=== PATIENT | male | born 1975 | race American Indian/Alaskan Native ===

== ENCOUNTER 2019-01-26 03:17 | Emergency (ER) | payer MEDICAID ==
[2019-01-26] MEDS ORDERED: Losartan 25 MG Tab PO STA (04:00)
[2019-01-26] MEDS ORDERED: Metoprolol Tartrate 25 MG Tab PO STA (04:01)
--- NOTE | 2019-01-26 04:07 | EDM.PDOC ---
<Glenn Huang - Last Filed: 01/26/19 08:37> ED HPI GENERAL MEDICAL PROBLEM - General Chief Complaint: Cardiovascular Problem Stated Complaint: [facility] Time Seen by Provider: 01/26/19 03:30 - Related Data Allergies Allergy/AdvReac Type Severity Reaction Status Date / Time No Known Allergies Allergy Verified 01/26/19 03:19 Home Meds: Home Meds Losartan [Cozaar] 100 mg PO DAILY 01/26/19 [History] Metoprolol Succinate [Toprol XL 100mg] 100 mg PO DAILY 01/26/19 [History] Simvastatin [Zocor] 40 mg PO DAILY 01/26/19 [History] Course - Vital Signs Last Recorded V/S: Last Vital Signs Temp 36.7 C 01/26/19 09:15 Pulse 88 01/26/19 09:15 Resp 20 01/26/19 09:15 BP 145/85 H 01/26/19 09:15 Pulse Ox 95 01/26/19 09:15 - Orders/Labs/Meds Labs: Laboratory Tests 01/26/19 01/26/19 01/26/19 Range/Units 04:14 04:14 07:34 WBC 8.67 (4.23-9.07) K/mm3 RBC 4.88 (4.63-6.08) M/mm3 Hgb 12.9 L (13.7-17.5) gm/L Hct 38.2 L (40.1-51.0) % MCV 78.3 L (79.0-92.2) fl MCH 26.4 (25.7-32.2) pg MCHC 33.8 (32.2-35.5) g/dl RDW Std Deviation 44.0 H (35.1-43.9) fL Plt Count 244 (163-337) K/mm3 MPV 8.8 L (9.4-12.3) fl Neutrophils % (Manual) 68 H (40-60) % Band Neutrophils % 3 (0-10) % Lymphocytes % (Manual) 21 (20-40) % Atypical Lymphs % 0 % Monocytes % (Manual) 5 (2-10) % Eosinophils % (Manual) 1 (0.8-7.0) % Basophils % (Manual) 2 H (0.2-1.2) Platelet Estimate Adequate Plt Morphology Comment Normal Microcytosis 1+ slight Shweta Cells 1+ slight RBC Morph Comment Not Reportable Sodium 140 (136-145) mEq/L Potassium 3.7 (3.5-5.1) mEq/L Chloride 106 (98-107) mEq/L Carbon Dioxide 25 (21-32) mEq/L Anion Gap 12.7 (5-15) BUN 17 (7-18) mg/dL Creatinine 1.0 (0.7-1.3) mg/dL Est Cr Clr Drug Dosing 93.28 mL/min Estimated GFR (MDRD) > 60 (>60) mL/min BUN/Creatinine Ratio 17.0 (14-18) Glucose 122 H (74-106) mg/dL Calcium 9.0 (8.5-10.1) mg/dL Magnesium (1.8-2.4) mg/dl Total Bilirubin 0.4 (0.2-1.0) mg/dL AST 20 (15-37) U/L ALT 29 (16-63) U/L Alkaline Phosphatase 152 H (46-116) U/L Troponin I 0.291 H* 0.490 H* (0.00-0.056) ng/mL NT-Pro-B Natriuret Pep (0-125) pg/mL Total Protein 7.2 (6.4-8.2) g/dl Albumin 3.3 L (3.4-5.0) g/dl Globulin 3.9 gm/dL Albumin/Globulin Ratio 0.9 L (1-2) 01/26/19 01/26/19 Range/Units 07:34 07:34 WBC (4.23-9.07) K/mm3 RBC (4.63-6.08) M/mm3 Hgb (13.7-17.5) gm/L Hct (40.1-51.0) % MCV (79.0-92.2) fl MCH (25.7-32.2) pg MCHC (32.2-35.5) g/dl RDW Std Deviation (35.1-43.9) fL Plt Count (163-337) K/mm3 MPV (9.4-12.3) fl Neutrophils % (Manual) (40-60) % Band Neutrophils % (0-10) % Lymphocytes % (Manual) (20-40) % Atypical Lymphs % % Monocytes % (Manual) (2-10) % Eosinophils % (Manual) (0.8-7.0) % Basophils % (Manual) (0.2-1.2) Platelet Estimate Plt Morphology Comment Microcytosis [place] Cells RBC Morph Comment Sodium (136-145) mEq/L Potassium (3.5-5.1) mEq/L Chloride (98-107) mEq/L Carbon Dioxide (21-32) mEq/L Anion Gap (5-15) BUN (7-18) mg/dL Creatinine (0.7-1.3) mg/dL Est Cr Clr Drug Dosing mL/min Estimated GFR (MDRD) (>60) mL/min BUN/Creatinine Ratio (14-18) Glucose (74-106) mg/dL Calcium (8.5-10.1) mg/dL Magnesium 1.8 (1.8-2.4) mg/dl Total Bilirubin (0.2-1.0) mg/dL AST (15-37) U/L ALT (16-63) U/L Alkaline Phosphatase (46-116) U/L Troponin I (0.00-0.056) ng/mL NT-Pro-B Natriuret Pep 2056 H (0-125) pg/mL Total Protein (6.4-8.2) g/dl Albumin (3.4-5.0) g/dl Globulin gm/dL Albumin/Globulin Ratio (1-2) Meds: Medications Discontinued Medications Generic Name Dose Route Start Last Admin Trade Name Freq PRN Reason Stop Dose Admin Aspirin 324 mg 01/26/19 08:47 01/26/19 08:51 Aspirin PO 01/26/19 08:48 324 mg ONETIME ONE Administration Heparin Sodium (Porcine) 5,000 units 01/26/19 08:28 01/26/19 08:47 Heparin Sodium IVPUSH 01/26/19 08:29 5,000 units ONETIME ONE Administration Nitroglycerin/Dextrose 25 mg in 250 mls @ 6 mls/hr 01/26/19 08:30 01/26/19 08 :25 Nitroglycerin 25 Mg/D5w 250 Ml IV 10 mcg/min TITRATE LEILANI 6 mls/hr Administration Protocol 10 MCG/MIN Heparin Sodium/Dextrose 25,000 units in 500 mls @ 20 mls/hr 01/26/19 08:30 08:48 Heparin 25,000 Units In D5w 500 Ml IV 1,000 units/hr ASDIRECTED LEILANI 20 mls/hr Administration 1,000 UNITS/HR Losartan Potassium 25 mg 01/26/19 04:00 01/26/19 04:24 Cozaar PO 01/26/19 04:01 25 mg ONETIME STA Administration Metoprolol Succinate 100 mg 01/26/19 08:38 Toprol Xl PO 01/26/19 08:39 ONETIME ONE Metoprolol Tartrate 25 mg 01/26/19 04:01 01/26/19 04:23 Lopressor PO 01/26/19 04:02 25 mg ONETIME STA Administration Simvastatin 80 mg 01/26/19 08:38 01/26/19 08:58 Zocor PO 01/26/19 08:39 80 mg ONETIME ONE Administration - Re-Assessments/Exams Free Text/Narrative Re-Assessment/Exam: 01/26/19 08:[address] Huertas at change of shift. His second troponin is elevated at 0.4 90 with the initial one being 0.295. reports that he does have some mild central chest discomfort. BP is 151/83. He'll be started on nitroglycerin drip at 10 mcg/m. his med list is not yet been obtained. His doctor will be open up and walk city and therefore will call for his current meds. Been out of medications for about 2 weeks. 01/26/19 08:39 I was able to speak through the one call nurse at [facility] to Dr. Guerrero hospitalist phone technician and he has accepted care of this patient. That he does not have any further chest pain he will be admitted to the telemetry [place]. Otherwise if he develops chest pain en route to [place] he will stop in the ED for potential emergent catheterization. Treatment here has been aspirin 324 mg chewed. Heparinized with 5000 unit bolus and then will be started on 1000 unit per hour drip. Simvastatin [address] Tinoco had given him metoprolol during the night in the ED. Blood pressure stable at 155/ 81. Heart rate is 88 in sinus. Sats are 94% on room air 01/26/19 08:47 Departure - Departure Time of Disposition: 09:10 Disposition: DC/Tfer to Acute Hospital 02 Condition: Fair Clinical Impression: Elevated troponin I measurement Myocardial infarction Qualifiers: Myocardial infarction type: non-ST elevation myocardial infarction Qualified Code(s): I21.4 - Non-ST elevation (NSTEMI) myocardial infarction - Discharge Information *PRESCRIPTION DRUG MONITORING PROGRAM REVIEWED*: Not Applicable *COPY OF PRESCRIPTION DRUG MONITORING REPORT IN PATIENT KINGS: Not Applicable Referrals: Amarjit Bonner MD [Ordering Only Provider] - Forms: ED Department Discharge <AleksandarTesfaye Freddie - Last Filed: 01/27/19 18:26> ED HPI GENERAL MEDICAL PROBLEM - General Source of Information: Reports: Patient, Family, RN Notes Reviewed History Limitations: Reports: No Limitations - History of Present Illness INITIAL COMMENTS - FREE TEXT/NARRATIVE: The patient states that he has a history of hypertension, and states that he takes his blood pressure medications as prescribed, but also takes an extra dose of his blood pressure medicines whenever he has a headache, believing that his headaches may be due to elevated blood pressure. The patient does not check his blood pressure at home. As a result, the patient states that he ran out of his blood pressure medications, as well as his simvastatin, about 2 weeks ago. He was unable to refill his prescriptions at that time because it was too early , although his prescriptions became available this past 01/22/2019, however, the patient has not yet picked them up. The patient does not know the name or dose of either of his blood pressure medications, but when given some options, said that losartan and metoprolol sound familiar. Around 02:00 this morning, the patient states that he started feeling jittery and shaky, he had a cough, was diaphoretic, and his says that he looked pale. The patient states that he felt his heart pounding, therefore EMS was called. He denies having had a headache or chest pain, dyspnea, or nausea. Here in the ED, the patient states that he feels back to normal. His initial BP was found be 171/102, with a HR 101, but, without treatment, decreased to 167/94. The patient states that he suffered a VT in September 2011. At that time, he had central chest discomfort that radiated to his left jaw and down his left upper extremity to the elbow. He had dyspnea, nausea, diaphoresis, and a sense of impending doom. His states that he was being flown to [place], but that about 15-20 minutes into his flight, he suffered a hemorrhagic stroke. As a result, no cardiac stents were placed. The patient received a cerebral drain and was placed into an induced coma. 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 The patient's PCP is Analy Hankins. He last saw her about one month ago. Treatments BODY AND FENDER MECHANIC: Reports: IV/IO, Other (see below) Other Treatments BODY AND FENDER MECHANIC: Labetalol 5mg IVP. Past Medical History Cardiovascular History: Reports: CAD, High Cholesterol, Hypertension, VT (Sep 2011) Respiratory History: Reports: Sleep Apnea (noncompliant with CPAP) Genitourinary History: Reports: Acute Renal Failure (2010, resolved) Musculoskeletal History: Reports: Arthritis Neurological History: Reports: CVA (Hemorrhagic, Sep 2011) Endocrine/Metabolic History: Reports: Obesity/BMI 30+ - Past Surgical History Head Surgeries/Procedures: Reports: Other (See Below) (Ventricular drain, 2010) Musculoskeletal Surgical History: Reports: Other (See Below) (Left hand pinning) Social & Family History - Tobacco Use Smoking Status *Q: Former Smoker Years of Tobacco use: 15 Packs/Tins Daily: 3 Month/Year Tobacco Last Used: Quit 2009 - Alcohol Use Alcohol Use History: No - Recreational Drug Use Recreational Drug Use: Yes Drug Use in Last 12 Months: No Recreational Drug Type: Reports: Marijuana/Hashish (last smoked when 23 years old) - Living Situation & Occupation Living situation: Reports: , with Spouse, with Family (7 kids, 3 grandkids) Occupation: Employed ([employer]) ED ROS GENERAL - Review of Systems Review Of Systems: ROS reveals no pertinent complaints other than HPI. ED EXAM, GENERAL - Physical Exam Exam: See Below Exam Limited By: No Limitations General Appearance: Alert, WD/WN, No Apparent Distress Eye Exam: Bilateral Eye: EOMI, Normal Inspection Ears: Normal External Exam, Hearing Grossly Normal Nose: Normal Inspection Throat/Mouth: Normal Inspection, Normal Lips, Normal Voice, No Airway Compromise Head: Atraumatic, Normocephalic Neck: Normal Inspection, Full Range of Motion Respiratory/Chest: No Respiratory Distress, Lungs Clear, Normal Breath Sounds, No Accessory Muscle Use Cardiovascular: Normal Peripheral Pulses, Regular Rate, Rhythm, No Gallop, No JVD, No Rub, Systolic Murmur (harsh, holosystolic, heard across the precordium, but best at the RUSB. Radiates to both carotids.) Peripheral Pulses: 4+: Radial (L), Radial (R) GI/Abdominal: Normal Bowel Sounds, Soft, Non-Tender, No Organomegaly, No Distention, No Abnormal Bruit, No Mass, Other (Obese) (Male) Exam: Deferred Rectal (Males) Exam: Deferred Back Exam: Normal Inspection, Full Range of Motion, NT Extremities: Normal Inspection, Normal Range of Motion, No Pedal Edema, Normal Capillary Refill Neurological: Alert, Oriented, Normal Cognition, No Motor/Sensory Deficits Psychiatric: Normal Affect Skin Exam: Warm, Dry, Intact, Normal Color, No Rash EKG INTERPRETATION EKG Date: 01/26/19 Time: 04:15 Rhythm: NSR Rate (Beats/Min): 90 [place]: Normal (Borderline LAD) P-Wave: Enlarged (Possible LAE) QRS: Wide (Incomplete LBBB. + LVH) ST-T: Normal (J-point elevation in anterior leads, but no ischemic changes. Late transition.) QT: Prolonged (QTc 478 ms) Comparison: NA - No Prior EKG Course - Orders/Labs/Meds Labs: Laboratory Tests 01/26/19 01/26/19 01/26/19 Range/Units 04:14 04:14 07:34 WBC 8.67 (4.23-9.07) K/mm3 RBC 4.88 (4.63-6.08) M/mm3 Hgb 12.9 L (13.7-17.5) gm/L Hct 38.2 L (40.1-51.0) % MCV 78.3 L (79.0-92.2) fl MCH 26.4 (25.7-32.2) pg MCHC 33.8 (32.2-35.5) g/dl RDW Std Deviation 44.0 H (35.1-43.9) fL Plt Count 244 (163-337) K/mm3 MPV 8.8 L (9.4-12.3) fl Neutrophils % (Manual) 68 H (40-60) % Band Neutrophils % 3 (0-10) % Lymphocytes % (Manual) 21 (20-40) % Atypical Lymphs % 0 % Monocytes % (Manual) 5 (2-10) % Eosinophils % (Manual) 1 (0.8-7.0) % Basophils % (Manual) 2 H (0.2-1.2) Platelet Estimate Adequate Plt Morphology Comment Normal Microcytosis 1+ slight Shweta Cells 1+ slight RBC Morph Comment Not Reportable Sodium 140 (136-145) mEq/L Potassium 3.7 (3.5-5.1) mEq/L Chloride 106 (98-107) mEq/L Carbon Dioxide 25 (21-32) mEq/L Anion Gap 12.7 (5-15) BUN 17 (7-18) mg/dL Creatinine 1.0 (0.7-1.3) mg/dL Est Cr Clr Drug Dosing 93.28 mL/min Estimated GFR (MDRD) > 60 (>60) mL/min BUN/Creatinine Ratio 17.0 (14-18) Glucose 122 H (74-106) mg/dL Calcium 9.0 (8.5-10.1) mg/dL Magnesium (1.8-2.4) mg/dl Total Bilirubin 0.4 (0.2-1.0) mg/dL AST 20 (15-37) U/L ALT 29 (16-63) U/L Alkaline Phosphatase 152 H (46-116) U/L Troponin I 0.291 H* 0.490 H* (0.00-0.056) ng/mL NT-Pro-B Natriuret Pep (0-125) pg/mL Total Protein 7.2 (6.4-8.2) g/dl Albumin 3.3 L (3.4-5.0) g/dl Globulin 3.9 gm/dL Albumin/Globulin Ratio 0.9 L (1-2) 01/26/19 01/26/19 Range/Units 07:34 07:34 WBC (4.23-9.07) K/mm3 RBC (4.63-6.08) M/mm3 Hgb (13.7-17.5) gm/L Hct (40.1-51.0) % MCV (79.0-92.2) fl MCH (25.7-32.2) pg MCHC (32.2-35.5) g/dl RDW Std Deviation (35.1-43.9) fL Plt Count (163-337) K/mm3 MPV (9.4-12.3) fl Neutrophils % (Manual) (40-60) % Band Neutrophils % (0-10) % Lymphocytes % (Manual) (20-40) % Atypical Lymphs % % Monocytes % (Manual) (2-10) % Eosinophils % (Manual) (0.8-7.0) % Basophils % (Manual) (0.2-1.2) Platelet Estimate Plt Morphology Comment Microcytosis Shweta Cells RBC Morph Comment Sodium (136-145) mEq/L Potassium (3.5-5.1) mEq/L Chloride (98-107) mEq/L Carbon Dioxide (21-32) mEq/L Anion Gap (5-15) BUN (7-18) mg/dL Creatinine (0.7-1.3) mg/dL Est Cr Clr Drug Dosing mL/min Estimated GFR (MDRD) (>60) mL/min BUN/Creatinine Ratio (14-18) Glucose (74-106) mg/dL Calcium (8.5-10.1) mg/dL Magnesium 1.8 (1.8-2.4) mg/dl Total Bilirubin (0.2-1.0) mg/dL AST (15-37) U/L ALT (16-63) U/L Alkaline Phosphatase (46-116) U/L Troponin I (0.00-0.056) ng/mL NT-Pro-B Natriuret Pep 2056 H (0-125) pg/mL Total Protein (6.4-8.2) g/dl Albumin (3.4-5.0) g/dl Globulin gm/dL Albumin/Globulin Ratio (1-2) Meds: Medications Discontinued Medications Generic Name Dose Route Start Last Admin Trade Name Freq PRN Reason Stop Dose Admin Aspirin 324 mg 01/26/19 08:47 01/26/19 08:51 Aspirin PO 01/26/19 08:48 324 mg ONETIME ONE Administration Heparin Sodium (Porcine) 5,000 units 01/26/19 08:28 01/26/19 08:47 Heparin Sodium IVPUSH 01/26/19 08:29 5,000 units ONETIME ONE Administration Nitroglycerin/Dextrose 25 mg in 250 mls @ 6 mls/hr 01/26/19 08:30 01/26/19 08 :25 Nitroglycerin 25 Mg/D5w 250 Ml IV 10 mcg/min TITRATE LEILANI 6 mls/hr Administration Protocol 10 MCG/MIN Heparin Sodium/Dextrose 25,000 units in 500 mls @ 20 mls/hr 01/26/19 08:30 08:48 Heparin 25,000 Units In D5w 500 Ml IV 1,000 units/hr ASDIRECTED LEILANI 20 mls/hr Administration 1,000 UNITS/HR Losartan Potassium 25 mg 01/26/19 04:00 01/26/19 04:24 Cozaar PO 01/26/19 04:01 25 mg ONETIME STA Administration Metoprolol Succinate 100 mg 01/26/19 08:38 Toprol Xl PO 01/26/19 08:39 ONETIME ONE Metoprolol Tartrate 25 mg 01/26/19 04:01 01/26/19 04:23 Lopressor PO 01/26/19 04:02 25 mg ONETIME STA Administration Simvastatin 80 mg 01/26/19 08:38 01/26/19 08:58 Zocor PO 01/26/19 08:39 80 mg ONETIME ONE Administration - Re-Assessments/Exams Free Text/Narrative Re-Assessment/Exam: 01/26/19 04:02 When the patient developed jitteriness, shakiness, cough, diaphoresis, and pale appearance this morning, the patient's was concerned, given the patient's history of a VT that ultimately resulted in a hemorrhagic stroke. The patient denies, however, that he experienced any of the symptoms that he had when he had a VT, including central chest pain radiating to his left jaw and left upper extremity, dyspnea, or nausea. Nevertheless, I've ordered an ECG, chest x-ray, and blood work. The patient's initial blood pressure was elevated at 171/102, with a HR of 101. Without treatment, it has decreased to 167/94, with a HR of 94. Current guidelines do not require emergent treatment of such a blood pressure, however, I feel that the patient and his might feel better if I restart him on his usual medications. Unfortunately, they are not certain of what medications he ordinarily takes - they believe it is losartan, although it may be lisinopril, and metoprolol, and they don't know the doses. I have therefore ordered the smallest dose possible for both losartan and metoprolol, 25 mg each. The plan will be that after the patient's evaluation in the ED this morning, they can go to their pharmacy and apple picking supervisor their prescriptions that are waiting for them. On examination, the patient has a murmur that is consistent with aortic stenosis. This needs to be evaluated by echocardiogram and followed. I will therefore refer the patient to a Programs Manager in [place]. 01/26/19 04:50 Two-view chest radiograph reviewed. There is cardiomegaly, and there might be a slight amount of pulmonary vascular congestion, but no pleural effusions. No focal infiltrate. No pneumothorax. Formal read per the Radiologist pending. 01/26/19 05:01 The patient's CBC and CMP are unremarkable. His renal function is normal. His troponin, however, has returned modestly elevated at 0.291. We have no prior troponins to compare. It is possible that the patient's elevated troponin is related to his LVH/ cardiomegaly, which are likely due to, at least in part, aortic stenosis, however, I would like to discuss his case with a Programs Manager. 01/26/19 05:20 Case discussed with Cris at [facility] One Call at 05:07. Portable chest x-ray image pushed to [facility] at 05:09. Case then discussed with Dr. Jin, Programs Manager at [facility], at 05: 14. He recommended that we repeat the troponin 3 hours after the first. If it is not rising, then the patient may follow-up with a cold meat cook as an outpatient - he recommended Dr. Amarjit Bonner, as Dr. Bonner comes into [place]. If the troponin is rising, he recommended that we call them back - Dr. Sutton will be on at that time. The initial troponin was obtained at 04:14; I have ordered a repeat troponin to be obtained at 07:15. 01/26/19 06:36 Following losartan 25 mg and metoprolol 25 mg, the patient's most recent BP is 142/95 with a HR of 93. 01/26/19 07:[address] Huang, and care of the patient turned over to him at this time for change of shift.
[2019-01-26] MEDS ORDERED: Heparin Sodium 5,000 Units/ML Vial IVPUSH ONE (08:28)
[2019-01-26] MEDS ORDERED: Heparin Sodium/D5W 25,000 UNITS/500 ML BAG IV SCH (08:30)
[2019-01-26] MEDS ORDERED: Nitroglycerin/D5W 25 MG/250 ML BOTTLE IV SCH (08:30)
[2019-01-26] MEDS ORDERED: Simvastatin 40 MG Tab PO ONE (08:38)
[2019-01-26] MEDS ORDERED: Metoprolol Succinate 50 MG Tab.ER PO ONE (08:38)
[2019-01-26] MEDS ORDERED: Aspirin 81 MG Tab.Chew PO ONE (08:47)
--- NOTE | 2019-01-26 10:54 | CR ---
Chest: Two views of the chest were obtained. Comparison: No prior chest x-ray. Heart is enlarged. Tortuous thoracic aorta is seen. Mild upper lobe pulmonary vascular redistribution is seen. Lungs otherwise are clear. Slight degenerative change is scattered within the spine. Impression: 1. Cardiomegaly with mild upper lobe pulmonary vascular redistribution. 2. Other incidental findings. Diagnostic code #3
== END 2019-01-26 09:19 ==
LOC: JD.ED 03:17
DX: I21.4 Non-ST elevation (NSTEMI) myocardial infarction (principal); R79.89 Other specified abnormal findings of blood chemistry; I25.10 Atherosclerotic heart disease of native coronary artery without angina pectoris; E78.00 Pure hypercholesterolemia, unspecified; I10 Essential (primary) hypertension; Z79.899 Other long term (current) drug therapy; Z87.891 Personal history of nicotine dependence; Z86.73 Personal history of transient ischemic attack (TIA), and cerebral infarction without residual deficits
CPT/HCPCS: 36415; 71046; 80053; 83735; 83880; 84484; 85007; 85027; 93005; 96365; 96368; 99285; A9270; J1644; J3490; 93010

== ENCOUNTER 2021-08-15 02:03 | Inpatient (IN) | payer MEDICAID ==
[2021-08-15] MEDS: Sodium Chloride 0.9% 10 ML Syringe FLUSH PRN ×2 (02:23→03:54)
[2021-08-15] MEDS ORDERED: REMDESIVIR 200 MG in Sodium Chloride 0.9% 250 ML IV ONE (02:27)
[2021-08-15] MEDS ORDERED: Dexamethasone 10 MG/ML SDV IVPUSH ONE (02:27)
[2021-08-15] MEDS ORDERED: Acetaminophen 325 MG Tab PO ONE (02:34)
--- NOTE | 2021-08-15 02:35 | EDM.PDOC ---
<Willie Acevedo Daniel - Last Filed: 08/15/21 07:10> ED HPI GENERAL MEDICAL PROBLEM - General Chief Complaint: Respiratory Problem Stated Complaint: [facility] Time Seen by Provider: 08/15/21 02:16 Source of Information: Reports: Patient, EMS, RN Notes Reviewed - History of Present Illness INITIAL COMMENTS - FREE TEXT/NARRATIVE: 45 yr old male brought here by [facility] short of breath. He has been ill with covid for about 9 days, tested positive at [facility] yesterday,Found to have covid pneumonia Found to have covid pneumonia, sats reported to be OK, treated with dexamethasone, allowed to go home. Became more short of breath this last evening, early this morning. Arrived on NRB 15 LPM, sats only around 81 % on arrival to ED. Hx Htn., moderate obesity. Hx CAD, prior CABG, not diabetic, does not smoke, unvaccinated. - Related Data Allergies Allergy/AdvReac Type Severity Reaction Status Date / Time No Known Allergies Allergy Verified 08/15/21 02:10 Home Meds: Home Meds Losartan [Cozaar] 100 mg PO DAILY 01/26/19 [History] Metoprolol Succinate [Toprol XL 100mg] 100 mg PO DAILY 01/26/19 [History] Simvastatin [Zocor] 40 mg PO DAILY 01/26/19 [History] Doxycycline [Doxycycline Hyclate] 100 mg PO Q12HR 08/15/21 [History] calcitrioL [Calcitriol] 0.25 mcg PO DAILY 08/15/21 [History] Past Medical History HEENT History: Reports: Impaired Vision Other HEENT History: wears glasses Cardiovascular History: Reports: CAD, High Cholesterol, Hypertension, [place] Respiratory History: Reports: Sleep Apnea Genitourinary History: Reports: Acute Renal Failure Musculoskeletal History: Reports: Arthritis Neurological History: Reports: CVA Endocrine/Metabolic History: Reports: Obesity/BMI 30+ Dermatologic History: Reports: Other (See Below) Other Dermatologic History: 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 - Infectious Disease History Infectious Disease History: Reports: Novel Coronavirus - Past Surgical History Cardiovascular Surgical History: Reports: Valve Replacement Musculoskeletal Surgical History: Reports: Other (See Below) Social & Family History - Tobacco Use Tobacco Use Status *Q: Former Tobacco User Used Tobacco, but Quit: Yes Month/Year Tobacco Last Used: 2004 - Recreational Drug Use Recreational Drug Use: No - Living Situation & Occupation Living situation: Reports: , with Spouse, with Family (7 kids, 3 grandkids) 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 Denies: Abdominal Pain, Vomiting Musculoskeletal: Reports: Other (generalized achiness) Neurological: Reports: Dizziness, Headache ED EXAM, GENERAL - Physical Exam Exam: See Below General Appearance: Alert, Moderate Distress Head: Atraumatic Neck: Supple Respiratory/Chest: Respiratory Distress (moderate tachypnea), Rhonchi (mild bilat). No: Wheezing Cardiovascular: Tachycardia Back Exam: No: CVA Tenderness (L), CVA Tenderness (R) Extremities: Normal Inspection. No: Pedal Edema, Leg Pain, Increased Warmth, Redness Neurological: Alert, Oriented, No Motor/Sensory Deficits Skin Exam: Warm, Dry, Normal Color, No Rash Course - Re-Assessments/Exams Free Text/Narrative Re-Assessment/Exam: 08/15/21 03:17 CXR shows bilat. covid pneumonia. sats 86 ro 88 % 15 L NRB at time of exam. Have ordered high flow 02. will check ABG's once we get him stablized on the high flow 02. He was not severely tacypnic or short of breath at time of my exam but obviously ill. Have ordered 8 mg IV dexamethasone, 200 mg remdesivir, PO tylenol. 08/15/21 03:19. D Dimer has come back elevated at 2.76. CTPA ordered. CRP13.7, WBC 11,750. 08/15/21 04:05 ABG's 40 LHFNC, 60% Fio2 pO2 56, 7.39, 34.9. 04:30. sats did come up to mid 90's with higherO2. Currently doing better with sats 91 to 92 %, 35 L, 50 % Fio2. 08/15/21 05:43 CT chest shows diffuse bilat pneumonia, no PE. We are on diversion for admissions at this time, Both [facility] are on diversion for covid. Will look further out. 08/15/21 05:57. [facility] also on diversion for covid at this time. Have called [facility], they will put him on their waiting list and attempt to place him when something opens up. His sats are continuing stable at 91 to 92 %. 08/15/21 07:10. Change of shift, care transferred to Dr Huang at this time. Departure - Departure Disposition: Admitted As Inpatient 64 Condition: Serious Clinical Impression: Pneumonia due to COVID-19 virus, Hypoxia - Discharge Information Sepsis Event Note (ED) - Evaluation Sepsis Screening Result: No Definite Risk <Glenn Huang - Last Filed: 08/15/21 12:35> Past Medical History Cardiovascular History: Reports: Heart Valve Replacement (Patient has had both aortic and mitral valve replaced. Bioprosthetic valves) Course - Vital Signs Last Recorded V/S: Last Vital Signs Temp 36.7 C 08/15/21 09:00 Pulse 75 08/15/21 09:00 Resp 23 H 08/15/21 09:00 BP 136/76 08/15/21 09:00 Pulse Ox 80 L 08/15/21 10:01 - Orders/Labs/Meds Orders: Active Orders 24 hr Category Date Time Status Chest Physiotherapy [RT Chest Physiotherapy] [RC] Care 08/15/21 10:01 Active ASDIRECTED Incentive Spirometry [RT Incentive Spirometry] [RC] Care 08/15/21 10:01 Active ASDIRECTED Peripheral IV Care [RC] . DIRECTED Care 08/15/21 02:19 Active Chest PE [Ang Chest] [CT] Stat Exams 08/15/21 03:13 Taken Sodium Chloride 0.9% [Normal Saline] 100 ml Med 08/15/21 03:30 Active IV ASDIRECTED Sodium Chloride 0.9% [Saline Flush] Med 08/15/21 02:18 Active 10 ml FLUSH ASDIRECTED PRN Peripheral IV Insertion Adult [OM.PC] Stat Oth 08/15/21 02:18 Ordered Medication Orders Sodium Chloride (Normal Saline) 100 mls @ 60 mls/min IV ASDIRECTED LEILANI Last Admin: 08/15/21 03:54 Dose: 60 mls/min Documented by: CAL Remdesivir 100 mg/ Sodium (Chloride) 100 mls @ 100 mls/hr IV Q24H LEILANI Stop: 08/19/21 09:59 Sodium Chloride (Sodium Chloride 0.9% 10 Ml Syringe) 10 ml FLUSH ASDIRECTED PRN PRN Reason: Keep Vein Open Last Admin: 08/15/21 03:54 Dose: 10 ml Documented by: Admin: 08/15/21 02:23 Dose: 10 ml Documented by: JD Labs: Laboratory Tests 08/15/21 08/15/21 08/15/21 Range/Units 02:15 02:15 02:15 WBC 11.75 H (4.23-9.07) K/mm3 RBC 5.53 (4.63-6.08) M/mm3 Hgb 14.6 D (13.7-17.5) gm/dl Hct 44.4 (40.1-51.0) % MCV 80.3 (79.0-92.2) fl MCH 26.4 (25.7-32.2) pg MCHC 32.9 (32.2-35.5) g/dl RDW Std Deviation 42.6 (35.1-43.9) fL Plt Count 237 (163-337) K/mm3 MPV 9.3 L (9.4-12.3) fl Neut % (Auto) 87.6 H (34.0-67.9) % Lymph % (Auto) 8.5 L (21.8-53.1) % [place] % (Auto) 3.1 L (5.3-12.2) % Eos % (Auto) 0 L (0.8-7.0) Baso % (Auto) 0.1 (0.1-1.2) % Neut # (Auto) 10.29 H (1.78-5.38) K/mm3 Lymph # (Auto) 1.00 L (1.32-3.57) K/mm3 [place] # (Auto) 0.37 (0.30-0.82) K/mm3 Eos # (Auto) 0.00 L (0.04-0.54) K/mm3 Baso # (Auto) 0.01 (0.01-0.08) K/mm3 Manual Slide Review D-Dimer, Quantitative 2.76 H (0.19-0.50) mg/L Puncture Site ABG pH (7.35-7.45) ABG pCO2 (35.0-45.0) mmHg ABG pO2 (80.0-100.0) mmHg ABG HCO3 (22.0-26.0) meq/L ABG O2 Saturation (96.0-97.0) % ABG Base Excess (-2-2.0) A-a Gradient mmHg O2 Delivery Device Oxygen Flow Rate FiO2 (21.00-100.00) % Blood Gas Comments Sodium 144 (136-145) mEq/L Potassium 4.3 (3.5-5.1) mEq/L Chloride 106 (98-107) mEq/L Carbon Dioxide 27 (21-32) mEq/L Anion Gap 15.3 H (5-15) BUN 20 H (7-18) mg/dL Creatinine 1.4 H (0.7-1.3) mg/dL Est Cr Clr Drug Dosing 65.23 mL/min Estimated GFR (MDRD) 54 (>60) mL/min BUN/Creatinine Ratio 14.3 (14-18) Glucose 117 H (70-99) mg/dL Calcium 8.2 L (8.5-10.1) mg/dL Total Bilirubin 0.4 (0.2-1.0) mg/dL AST 47 H (15-37) U/L ALT 28 (16-63) U/L Alkaline Phosphatase 90 (46-116) U/L C-Reactive Protein 13.7 H* (<1.0) mg/dL Total Protein 6.6 (6.4-8.2) g/dl Albumin 2.7 L (3.4-5.0) g/dl Globulin 3.9 gm/dL Albumin/Globulin Ratio 0.7 L (1-2) 08/15/21 Range/Units 03:55 WBC (4.23-9.07) K/mm3 RBC (4.63-6.08) M/mm3 Hgb (13.7-17.5) gm/dl Hct (40.1-51.0) % MCV (79.0-92.2) fl MCH (25.7-32.2) pg MCHC (32.2-35.5) g/dl RDW Std Deviation (35.1-43.9) fL Plt Count (163-337) K/mm3 MPV (9.4-12.3) fl Neut % (Auto) (34.0-67.9) % Lymph % (Auto) (21.8-53.1) % [place] % (Auto) (5.3-12.2) % Eos % (Auto) (0.8-7.0) Baso % (Auto) (0.1-1.2) % Neut # (Auto) (1.78-5.38) K/mm3 Lymph # (Auto) (1.32-3.57) K/mm3 [place] # (Auto) (0.30-0.82) K/mm3 Eos # (Auto) (0.04-0.54) K/mm3 Baso # (Auto) (0.01-0.08) K/mm3 Manual Slide Review D-Dimer, Quantitative (0.19-0.50) mg/L Puncture Site Lt brachial ABG pH 7.39 (7.35-7.45) ABG pCO2 34.9 L (35.0-45.0) mmHg ABG pO2 56.0 L (80.0-100.0) mmHg ABG HCO3 20.8 L (22.0-26.0) meq/L ABG O2 Saturation 88.5 L (96.0-97.0) % ABG Base Excess -3.0 L (-2-2.0) A-a Gradient 328 mmHg O2 Delivery Device High flow Oxygen Flow Rate 40.0 FiO2 60.00 (21.00-100.00) % Blood Gas Comments O2 change x 5min Sodium (136-145) mEq/L Potassium (3.5-5.1) mEq/L Chloride (98-107) mEq/L Carbon Dioxide (21-32) mEq/L Anion Gap (5-15) BUN (7-18) mg/dL Creatinine (0.7-1.3) mg/dL Est Cr Clr Drug Dosing mL/min Estimated GFR (MDRD) (>60) mL/min BUN/Creatinine Ratio (14-18) Glucose (70-99) mg/dL Calcium (8.5-10.1) mg/dL Total Bilirubin (0.2-1.0) mg/dL AST (15-37) U/L ALT (16-63) U/L Alkaline Phosphatase (46-116) U/L C-Reactive Protein (<1.0) mg/dL Total Protein (6.4-8.2) g/dl Albumin (3.4-5.0) g/dl Globulin gm/dL Albumin/Globulin Ratio (1-2) Meds: Medications Generic Name Dose Route Start Last Admin Trade Name Freq PRN Reason Stop Dose Admin Sodium Chloride 100 mls @ 60 mls/min 08/15/21 03:30 08/15/21 03:54 Normal Saline IV 60 mls/min ASDIRECTED LEILANI Administration Remdesivir 100 mg/ Sodium 100 mls @ 100 mls/hr 08/16/21 09:00 Chloride IV 08/19/21 09:59 Q24H LEILANI Sodium Chloride 10 ml 08/15/21 02:18 08/15/21 03:54 Sodium Chloride 0.9% 10 Ml Syringe FLUSH 10 ml ASDIRECTED PRN Administration Keep Vein Open Discontinued Medications Generic Name Dose Route Start Last Admin Trade Name Freq PRN Reason Stop Dose Admin Acetaminophen 975 mg 08/15/21 02:34 08/15/21 02:42 Acetaminophen 325 Mg Tab PO 08/15/21 02:35 975 mg NOW ONE Administration Dexamethasone 8 mg 08/15/21 02:27 08/15/21 02:42 Dexamethasone 10 Mg/Ml Sdv IVPUSH 08/15/21 02:28 8 mg ONETIME ONE Administration Remdesivir 200 mg/ Sodium 250 mls @ 250 mls/hr 08/15/21 02:27 08/15/21 02:45 Chloride IV 08/15/21 03:26 250 mls/hr ONETIME ONE Administration Iopamidol 100 ml 08/15/21 03:17 08/15/21 03:54 Iopamidol 755 Mg/Ml 100 Ml Bottle IVPUSH 08/15/21 03:18 100 ml ONETIME ONE Administration Sodium Chloride 10 ml 08/15/21 03:17 Sodium Chloride 0.9% 10 Ml Sdv FLUSH 08/15/21 03:18 ONETIME ONE - Re-Assessments/Exams Free Text/Narrative Re-Assessment/Exam: 08/15/21 09:14 Case is been discussed with on-call hospitalist Dr. Herrera and hopefully a bed will become available later this morning or early afternoon for Mr. Junior. This depends on ability to discharge patients from the hospital by the hospitalist. 08/15/21 11:22 Patient continued to slowly desaturate below 88% and respiratory therapist has therefore increased his high flow O2 FiO2 of 70% at 50 L/min . 08/15/21 12:13 Apparently a bed is now become available for this patient and he will be admitted to the hospital shortly. Departure - Departure Time of Disposition: 12:35 - Discharge Information *PRESCRIPTION DRUG MONITORING PROGRAM REVIEWED*: Not Applicable *COPY OF PRESCRIPTION DRUG MONITORING REPORT IN PATIENT KINGS: Not Applicable Sepsis Event Note (ED) - Focused Exam Vital Signs: Vital Signs Temp Pulse Resp BP Pulse Ox Pulse Ox 08/15/21 10:01 80 L 08/15/21 09:00 36.7 C 75 23 H 136/76 90 L 08/15/21 04:20 98 08/15/21 02:11 38.2 C H 109 H 28 H 138/96 H 81 L - My Orders Last 24 Hours: My Active Orders 08/15/21 10:01 Chest Physiotherapy [RT Chest Physiotherapy] [RC] ASDIRECTED Incentive Spirometry [RT Incentive Spirometry] [RC] ASDIRECTED - Assessment/Plan Last 24 Hours: My Active Orders 08/15/21 10:01 Chest Physiotherapy [RT Chest Physiotherapy] [RC] ASDIRECTED Incentive Spirometry [RT Incentive Spirometry] [RC] ASDIRECTED
[2021-08-15] MEDS ORDERED: Iopamidol 755 Mg/ML 100 ML Bottle IVPUSH ONE (03:17)
[2021-08-15] MEDS ORDERED: Sodium Chloride 0.9% 10 ML SDV FLUSH ONE (03:17)
[2021-08-15] MEDS ORDERED: Sodium Chloride 0.9% 100 ML IV SCH (03:30)
--- NOTE | 2021-08-15 08:05 | CR ---
Chest: Frontal view of the chest was obtained. Comparison: Prior chest x-ray of 01/26/19. Heart is enlarged. Diffuse increased density is seen within both sides of the chest. Prior sternotomy is seen. Bony structures show nothing acute. Parenchymal densities are an interval change from prior chest x-ray. Impression: 1. Diffuse increased density within both sides of the chest with cardiomegaly. Findings most likely represent COVID pneumonia. Diagnostic code #3
[2021-08-15] MEDS ORDERED: FLU Vacc QS2021-22 36MOS UP/PF 60 MCG/0.5 ML Syringe IM ONE (13:00)
[2021-08-15] MEDS ORDERED: Ondansetron 4 MG/2 ML SDV IV PRN (14:03)
--- NOTE | 2021-08-15 14:08 | PCM.HP.2 ---
H&P History of Present Illness - General Date of Service: 08/15/21 Admit Problem/Dx: Admission Diagnosis/Problem Admission Diagnosis/Problem Hypoxia - History of Present Illness Initial Comments - Free Text/Narative: 45-year-old unvaccinated against COVID-19 male presents after having symptoms for approximately 9 days to the emergency department. Patient had difficulty breathing coming back from the bathroom and called EMS who reported his O2 level to be significantly low. Patient was placed on a nonrebreather on 15 L and his sats were only 81% on arrival to the emergency department. Patient's risk facto rs include morbid obesity and hypertension. 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 He denies diabetes. Headache Pain Score (Numeric/FACES): 3 - Related Data Allergies/Adverse Reactions: Allergies Allergy/AdvReac Type Severity Reaction Status Date / Time No Known Allergies Allergy Verified 08/15/21 13:35 Home Medications: Home Meds Losartan [Cozaar] 100 mg PO DAILY 01/26/19 [History] Simvastatin [Zocor] 40 mg PO DAILY 01/26/19 [History] Doxycycline [Doxycycline Hyclate] 100 mg PO Q12HR 08/15/21 [History] Metoprolol Succinate 50 mg PO DAILY 08/15/21 [History] calcitrioL [Calcitriol] 0.25 mcg PO DAILY 08/15/21 [History] Past Medical History HEENT History: Reports: Impaired Vision Other HEENT History: wears glasses Cardiovascular History: Reports: CAD, Heart Valve Replacement, High Cholesterol, Hypertension, [place] Respiratory History: Reports: Sleep Apnea Genitourinary History: Reports: Acute Renal Failure Musculoskeletal History: Reports: Arthritis, Gout Neurological History: Reports: CVA Other Neuro History: 2009 Endocrine/Metabolic History: Reports: Obesity/BMI 30+ Dermatologic History: Reports: Other (See Below) Other Dermatologic History: 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 Exam - Exam Exam: See Below - Vital Signs Vital Signs: Last Vital Signs Temp 98.1 F 08/15/21 09:00 Pulse 75 08/15/21 09:00 Resp 23 H 08/15/21 09:00 BP 136/76 08/15/21 09:00 Pulse Ox 86 L 08/15/21 12:39 Weight: 307 lb 8 oz - Exam Quality Assessment: Supplemental Oxygen General: Alert, Oriented, 4 HEENT: Conjunctiva Clear, EACs Clear, Hearing Intact, Mucosa Moist & [place] Neck: Supple, Trachea Midline, 2 Lungs: Crackles (Bibasilar). No: Normal Respiratory Effort (Increased respiratory rate) Cardiovascular: Regular Rate, Regular Rhythm GI/Abdominal Exam: Normal Bowel Sounds, Soft, Non-Tender, No Distention Extremities: Normal Inspection, Normal Range of Motion, Non-Tender, No Pedal Edema, Normal Capillary Refill Skin: Warm, Dry, Intact Neuro Extensive - Mental Status: Alert, Oriented x3, Normal Mood/Affect, Normal Cognition Neuro Extensive - Motor, Sensory, Reflexes: CN II-XII Intact Psychiatric: Alert, Normal Affect, Normal Mood - Patient Data Lab Results Last 24 hrs: Laboratory Results - last 24 hr 08/15/21 08/15/21 08/15/21 Range/Units 02:15 02:15 02:15 WBC 11.75 H (4.23-9.07) K/mm3 RBC 5.53 (4.63-6.08) M/mm3 Hgb 14.6 D (13.7-17.5) gm/dl Hct 44.4 (40.1-51.0) % MCV 80.3 (79.0-92.2) fl MCH 26.4 (25.7-32.2) pg MCHC 32.9 (32.2-35.5) g/dl RDW Std Deviation 42.6 (35.1-43.9) fL Plt Count 237 (163-337) K/mm3 MPV 9.3 L (9.4-12.3) fl Neut % (Auto) 87.6 H (34.0-67.9) % Lymph % (Auto) 8.5 L (21.8-53.1) % Arthur % (Auto) 3.1 L (5.3-12.2) % Eos % (Auto) 0 L (0.8-7.0) Baso % (Auto) 0.1 (0.1-1.2) % Neut # (Auto) 10.29 H (1.78-5.38) K/mm3 Lymph # (Auto) 1.00 L (1.32-3.57) K/mm3 Arthur # (Auto) 0.37 (0.30-0.82) K/mm3 Eos # (Auto) 0.00 L (0.04-0.54) K/mm3 Baso # (Auto) 0.01 (0.01-0.08) K/mm3 Manual Slide Review D-Dimer, Quantitative 2.76 H (0.19-0.50) mg/L Puncture Site ABG pH (7.35-7.45) ABG pCO2 (35.0-45.0) mmHg ABG pO2 (80.0-100.0) mmHg ABG HCO3 (22.0-26.0) meq/L ABG O2 Saturation (96.0-97.0) % ABG Base Excess (-2-2.0) A-a Gradient mmHg O2 Delivery Device Oxygen Flow Rate FiO2 (21.00-100.00) % Blood Gas Comments Sodium 144 (136-145) mEq/L Potassium 4.3 (3.5-5.1) mEq/L Chloride 106 (98-107) mEq/L Carbon Dioxide 27 (21-32) mEq/L Anion Gap 15.3 H (5-15) BUN 20 H (7-18) mg/dL Creatinine 1.4 H (0.7-1.3) mg/dL Est Cr Clr Drug Dosing 65.23 mL/min Estimated GFR (MDRD) 54 (>60) mL/min BUN/Creatinine Ratio 14.3 (14-18) Glucose 117 H (70-99) mg/dL Calcium 8.2 L (8.5-10.1) mg/dL Magnesium (1.8-2.4) mg/dL Total Bilirubin 0.4 (0.2-1.0) mg/dL AST 47 H (15-37) U/L ALT 28 (16-63) U/L Alkaline Phosphatase 90 (46-116) U/L C-Reactive Protein 13.7 H* (<1.0) mg/dL NT-Pro-B Natriuret Pep (0-125) pg/mL Total Protein 6.6 (6.4-8.2) g/dl Albumin 2.7 L (3.4-5.0) g/dl Globulin 3.9 gm/dL Albumin/Globulin Ratio 0.7 L (1-2) 08/15/21 08/15/21 08/15/21 Range/Units 03:55 12:48 12:48 WBC (4.23-9.07) K/mm3 RBC (4.63-6.08) M/mm3 Hgb (13.7-17.5) gm/dl Hct (40.1-51.0) % MCV (79.0-92.2) fl MCH (25.7-32.2) pg MCHC (32.2-35.5) g/dl RDW Std Deviation (35.1-43.9) fL Plt Count (163-337) K/mm3 MPV (9.4-12.3) fl Neut % (Auto) (34.0-67.9) % Lymph % (Auto) (21.8-53.1) % Arthur % (Auto) (5.3-12.2) % Eos % (Auto) (0.8-7.0) Baso % (Auto) (0.1-1.2) % Neut # (Auto) (1.78-5.38) K/mm3 Lymph # (Auto) (1.32-3.57) K/mm3 Arthur # (Auto) (0.30-0.82) K/mm3 Eos # (Auto) (0.04-0.54) K/mm3 Baso # (Auto) (0.01-0.08) K/mm3 Manual Slide Review D-Dimer, Quantitative (0.19-0.50) mg/L Puncture Site Lt brachial ABG pH 7.39 (7.35-7.45) ABG pCO2 34.9 L (35.0-45.0) mmHg ABG pO2 56.0 L (80.0-100.0) mmHg ABG HCO3 20.8 L (22.0-26.0) meq/L ABG O2 Saturation 88.5 L (96.0-97.0) % ABG Base Excess -3.0 L (-2-2.0) A-a Gradient 328 mmHg O2 Delivery Device High flow Oxygen Flow Rate 40.0 FiO2 60.00 (21.00-100.00) % Blood Gas Comments O2 change x 5min Sodium (136-145) mEq/L Potassium (3.5-5.1) mEq/L Chloride (98-107) mEq/L Carbon Dioxide (21-32) mEq/L Anion Gap (5-15) BUN (7-18) mg/dL Creatinine (0.7-1.3) mg/dL Est Cr Clr Drug Dosing mL/min Estimated GFR (MDRD) (>60) mL/min BUN/Creatinine Ratio (14-18) Glucose (70-99) mg/dL Calcium (8.5-10.1) mg/dL Magnesium 1.8 (1.8-2.4) mg/dL Total Bilirubin (0.2-1.0) mg/dL AST (15-37) U/L ALT (16-63) U/L Alkaline Phosphatase (46-116) U/L C-Reactive Protein (<1.0) mg/dL NT-Pro-B Natriuret Pep 420 H (0-125) pg/mL Total Protein (6.4-8.2) g/dl Albumin (3.4-5.0) g/dl Globulin gm/dL Albumin/Globulin Ratio (1-2) Result Diagrams: 08/15/21 02:15 08/15/21 02:15 Sepsis Event Note - Evaluation Sepsis Screening Result: No Definite Risk - Focused Exam Vital Signs: Vital Signs Temp Pulse Resp BP Pulse Ox Pulse Ox 08/15/21 12:39 86 L 08/15/21 10:01 80 L 08/15/21 09:00 98.1 F 75 23 H 136/76 90 L 08/15/21 04:20 98 08/15/21 02:11 100.7 F H 109 H 28 H 138/96 H 81 L - Problem List (1) HTN (hypertension) SNOMED Code(s): 46828990 ICD Code: I10 - ESSENTIAL (PRIMARY) HYPERTENSION Status: Acute Current Visit: Yes (2) Hypoxia SNOMED Code(s): 671969664 ICD Code: R09.02 - HYPOXEMIA Status: Acute Current Visit: Yes (3) Pneumonia due to COVID-19 virus SNOMED Code(s): 484157514726129710 ICD Code: U07.1 - COVID-19; J12.82 - PNEUMONIA DUE TO CORONAVIRUS DISEASE 2019 Status: Acute Current Visit: Yes Problem List Initiated/Reviewed/Updated: Yes Orders Last 24hrs: Active Orders 24 hr Category Date Time Status Patient Status [ADT] Routine ADT 08/15/21 12:58 Active Chest Physiotherapy [RT Chest Physiotherapy] [RC] Care 08/15/21 10:01 Active ASDIRECTED Incentive Spirometry [RT Incentive Spirometry] [RC] Care 08/15/21 10:01 Active ASDIRECTED Nurse Communication: Isolation [RC] ASDIRECTED Care 08/15/21 14:03 Ordered Oxygen Therapy [RC] PRN Care 08/15/21 14:03 Ordered Positioning, Patient [RC] ASDIRECTED Care 08/15/21 14:05 Ordered Up ad Yumi [RC] ASDIRECTED Care 08/15/21 14:03 Ordered VTE/DVT Education [RC] PER UNIT ROUTINE Care 08/15/21 14:03 Ordered Vaccine to be Administered/Admin Charge [RC] ASDIRECTED Care 08/15/21 12:51 Active Vital Signs [RC] Q4H Care 08/15/21 14:03 Ordered Regular Diet [DIET] Diet 08/15/21 Dinner Ordered Chest PE [Ang Chest] [CT] Stat Exams 08/15/21 03:13 Taken C-REACTIVE PROTEIN [CHEM] AM Lab 08/16/21 05:11 Ordered C-REACTIVE PROTEIN [CHEM] AM Lab 08/17/21 05:11 Ordered C-REACTIVE PROTEIN [CHEM] AM Lab 08/18/21 05:11 Ordered C-REACTIVE PROTEIN [CHEM] AM Lab 08/19/21 05:11 Ordered C-REACTIVE PROTEIN [CHEM] AM Lab 08/20/21 05:11 Ordered CBC WITH AUTO DIFF [HEME] AM Lab 08/16/21 05:11 Ordered CBC WITH AUTO DIFF [HEME] AM Lab 08/17/21 05:11 Ordered CBC WITH AUTO DIFF [HEME] AM Lab 08/18/21 05:11 Ordered CBC WITH AUTO DIFF [HEME] AM Lab 08/19/21 05:11 Ordered CBC WITH AUTO DIFF [HEME] AM Lab 08/20/21 05:11 Ordered CMP [COMPREHENSIVE METABOLIC PN,CMP] [CHEM] AM Lab 08/16/21 05:11 Ordered CMP [COMPREHENSIVE METABOLIC PN,CMP] [CHEM] AM Lab 08/17/21 05:11 Ordered CMP [COMPREHENSIVE METABOLIC PN,CMP] [CHEM] AM Lab 08/18/21 05:11 Ordered CMP [COMPREHENSIVE METABOLIC PN,CMP] [CHEM] AM Lab 08/19/21 05:11 Ordered CMP [COMPREHENSIVE METABOLIC PN,CMP] [CHEM] AM Lab 08/20/21 05:11 Ordered DD [D-DIMER QUANTITATIVE] [COAG] AM Lab 08/17/21 05:11 Ordered MAGNESIUM [CHEM] AM Lab 08/16/21 05:11 Ordered MAGNESIUM [CHEM] AM Lab 08/17/21 05:11 Ordered MAGNESIUM [CHEM] AM Lab 08/18/21 05:11 Ordered MAGNESIUM [CHEM] AM Lab 08/19/21 05:11 Ordered MAGNESIUM [CHEM] AM Lab 08/20/21 05:11 Ordered PHOSPHORUS [CHEM] AM Lab 08/16/21 05:11 Ordered PROCALCITONIN [REF] Routine Lab 08/15/21 14:08 Ordered Acetaminophen [TylenoL] Med 08/15/21 14:06 Ordered 650 mg PO Q4H PRN Baricitinib [Olumiant] Med 08/15/21 14:15 Ordered 4 mg PO DAILY Enoxaparin [Lovenox] Med 08/16/21 09:00 Ordered 40 mg SUBCUT DAILY Ondansetron [Zofran] Med 08/15/21 14:03 Ordered 4 mg IV Q6H PRN Remdesivir 100 mg Med 08/16/21 09:00 Active Sodium Chloride 0.9% [Normal Saline] 100 ml IV Q24H Sodium Chloride 0.9% [Normal Saline] 100 ml Med 08/15/21 03:30 Active IV ASDIRECTED Sodium Chloride 0.9% [Saline Flush] Med 08/15/21 02:18 Active 10 ml FLUSH ASDIRECTED PRN dexAMETHasone Med 08/16/21 09:00 Ordered 6 mg PO DAILY Isolation [COMM] Stat Oth 08/15/21 14:03 Ordered Peripheral IV Insertion Adult [OM.PC] Stat Oth 08/15/21 02:18 Ordered Resuscitation Status Routine Resus Stat 08/15/21 14:03 Ordered Medication Orders Acetaminophen (Acetaminophen 325 Mg Tab) 650 mg PO Q4H PRN PRN Reason: Pain Baricitinib (Baricitinib 2 Mg Tab) 4 mg PO DAILY LEILANI Dexamethasone (Dexamethasone 4 Mg Tab) 6 mg PO DAILY [facility] Stop: 08/25/21 09:01 Enoxaparin Sodium (Enoxaparin 40 Mg/0.4 Ml Syringe) 40 mg SUBCUT DAILY LEILANI Sodium Chloride (Normal Saline) 100 mls @ 60 mls/min IV ASDIRECTED LEILANI Last Admin: 08/15/21 03:54 Dose: 60 mls/min Documented by: CAL Remdesivir 100 mg/ Sodium (Chloride) 100 mls @ 100 mls/hr IV Q24H LEILANI Stop: 08/19/21 09:59 Ondansetron HCl (Ondansetron 4 Mg/2 Ml Sdv) 4 mg IV Q6H PRN PRN Reason: Nausea/Vomiting Sodium Chloride (Sodium Chloride 0.9% 10 Ml Syringe) 10 ml FLUSH ASDIRECTED PRN PRN Reason: Keep Vein Open Last Admin: 08/15/21 03:54 Dose: 10 ml Documented by: Admin: 08/15/21 02:23 Dose: 10 ml Documented by: JD Assessment/Plan Comment:: 45-year-old obese male with hypertension presents to the emergency department with hypoxemia secondary to COVID-19 pneumonia. Patient was diagnosed 2 days ago, but has been symptomatic for approximately 9 days. Oxygen saturations on arrival with EMS on 15 L nonrebreather was 81%. COVID-19 pneumonia Hypoxemia Patient started on remdesivir and dexamethasone overnight in the emergency department. There were no beds available, therefore patient had to be housed in the emergency department. He is currently on 50 L of high flow nasal cannula at 70% FiO2. His oxygen saturations are in the low 90s. CTA of the chest was performed which showed significant acute bilateral interstitial pneumonitis but no pulmonary embolism. Significant labs showed a D-dimer of 2.76, WBC of 11,750, CRP of 13.7. ABGs on 40 L high flow nasal cannula at 60% FiO2 showed a pH of 7.39, PO2 56, PCO2 34.9. Acute versus chronic renal insufficiency Creatinine is 1.4 with an estimated GFR of 54. No old records to determine baseline. We will continue to monitor. Hypertension Blood pressure was well controlled in the emergency department at 136/76. We will continue his home meds except RAVI inhibitor. Bioprosthetic aortic and mitral valve replacement No murmur no complications noted. No anticoagulation. Plan * Admit to medical floor * FiO2 to keep SPO2 between 88 and 94%. Currently on high flow nasal cannula at 50 L/min and 70% FiO2. * Standard Covid precautions, protocol, and treatment * Remdesivir, dexamethasone, and baricitinib * Follow CBC, CMP, mag, CRP, and periodic D-dimer. * Continue metoprolol for blood pressure control, but hold losartan. * Renally dose medications. VTE prophylaxis with Lovenox CODE STATUS full code I spoke with patient to provide information about baricitinib. I offered the "fax sheet for patients and parents/caregivers, for baricitinib" to read and review. I stated that therapy has been approved by an emergency use authorization process and has not fully been FDA reviewed or approved. I shared potential risks from the therapy including increased risk for serious infections, anaphylaxis, and reaction to medication. I discussed there are other potential treatment options that are currently not FDA approved to treat COVID-19. Offered opportunity to ask questions and all questions were answered. Patient voiced understanding and agreed to proceed with treatment. - Mortality Measure Prognosis:: Good
[2021-08-15] MEDS: Albuterol/Ipratropium 3.0-0.5 MG/3 ML Neb Soln NEB PRN ×2 (14:42→20:36)
[2021-08-16] MEDS: Acetaminophen 325 MG Tab PO PRN (00:56)
--- NOTE | 2021-08-16 06:30 | CT ---
CT chest Technique: Multiple axial sections through the chest were obtained. Intravenous contrast was utilized. Study has been performed as a pulmonary angiogram protocol. Comparison: Prior chest x-ray performed earlier on the same day. Findings: Pulmonary arteries are not optimally opacified. No filling defects are seen within the main or proximal segmental branches. More distal pulmonary emboli could be missed. Thoracic aorta shows minimal atherosclerotic calcification with no aneurysm. Previous replacement of the aortic and mitral valves are noted. No mediastinal adenopathy is seen. No axillary adenopathy is noted. No pericardial thickening is seen. Heart is enlarged. Visualized upper abdominal structures show nothing acute. Lung window settings were reviewed. Patchy areas of increased density scattered throughout both sides of the chest are seen. No pleural effusions are seen. Bone window settings were reviewed. Mild scattered degenerative change is seen within the spine. Prior sternotomy is noted. Impression: 1. Findings compatible with COVID pneumonia seen throughout both sides of the chest. 2. Cardiomegaly. Prior sternotomy for prosthetic aortic and mitral valves. 3. Suboptimal opacification of the pulmonary arteries. No findings of pulmonary embolism within the main or proximal subsegmental branches. Diagnostic code #3 I agree with preliminary report from [facility], finalized on 08/15/21, 6:26 AM CDT, code 1
[2021-08-16] MEDS: Albuterol/Ipratropium 3.0-0.5 MG/3 ML Neb Soln NEB PRN ×2 (08:18→14:08)
[2021-08-16 08:29] LABS: VITAMIN D,25-HYDROXY 11.8 ng/ml (30.0-100.0)
[2021-08-16] MEDS ORDERED: Enoxaparin 40 MG/0.4 ML Syringe SUBCUT SCH (09:00)
[2021-08-16] MEDS ORDERED: Dexamethasone 4 MG Tab PO SCH (09:00)
[2021-08-16] MEDS ORDERED: Losartan 100 MG Tab PO SCH (09:00)
[2021-08-16] MEDS: Simvastatin 40 MG Tab PO SCH (09:45)
[2021-08-16] MEDS: Metoprolol Succinate 50 MG Tab.ER PO SCH (09:45)
[2021-08-16] MEDS: REMDESIVIR 100 MG in Sodium Chloride 0.9% 100 ML IV SCH (09:46)
[2021-08-16] MEDS: Cholecalciferol (Vitamin D3) 5,000 UNIT Cap PO SCH (11:06)
[2021-08-16] MEDS: cefTRIAXone 2 GM in Sodium Chloride 0.9% 100 ML IV SCH (11:07)
[2021-08-16] MEDS: Azithromycin 500 MG in Sodium Chloride 0.9% 250 ML IV SCH (11:07)
[2021-08-16] MEDS: guaiFENesin 600 MG Tab.ER PO SCH ×2 (15:36→21:37)
--- NOTE | 2021-08-16 17:27 | PCM.PN ---
- General Info Date of Service: 08/16/21 Admission Dx/Problem (Free Text): Admission Diagnosis/Problem Admission Diagnosis/Problem Hypoxia Subjective Update: Patient continued to deteriorate this morning. He maxed out on high flow nasal cannula and was transferred to the ICU on BiPAP. He has been prone positioning and on BiPAP his oxygen saturations have stabilized in the low to mid 90s. Functional Status: Reports: Pain Controlled - Review of Systems General: Reports: Fatigue HEENT: Reports: No Symptoms Pulmonary: Reports: Shortness of Breath, Cough Cardiovascular: Reports: No Symptoms Gastrointestinal: Reports: No Symptoms Musculoskeletal: Reports: No Symptoms - Patient Data Vitals - Most Recent: Last Vital Signs Temp 98.1 F 08/16/21 15:38 Pulse 84 08/16/21 10:13 Resp 18 08/16/21 16:00 BP 158/106 H 08/16/21 15:38 Pulse Ox 96 08/16/21 16:00 Weight - Most Recent: 307 lb 6.4 oz I&O - Last 24 Hours: Intake & Output 08/16/21 08/16/21 08/16/21 06:59 14:59 22:59 Intake Total 400 Output Total 600 Balance -200 Lab Results Last 24 Hours: Laboratory Results - last 24 hr 08/15/21 08/16/21 08/16/21 Range/Units 12:58 07:31 07:31 WBC 9.37 H (4.23-9.07) K/mm3 RBC 4.92 (4.63-6.08) M/mm3 Hgb 13.1 L D (13.7-17.5) gm/dl Hct 39.9 L (40.1-51.0) % MCV 81.1 (79.0-92.2) fl MCH 26.6 (25.7-32.2) pg MCHC 32.8 (32.2-35.5) g/dl RDW Std Deviation 42.0 (35.1-43.9) fL Plt Count 276 (163-337) K/mm3 MPV 9.0 L (9.4-12.3) fl Neut % (Auto) 83.4 H (34.0-67.9) % Lymph % (Auto) 10.5 L (21.8-53.1) % [place] % (Auto) 4.8 L (5.3-12.2) % Eos % (Auto) 0 L (0.8-7.0) Baso % (Auto) 0.3 (0.1-1.2) % Neut # (Auto) 7.82 H (1.78-5.38) K/mm3 Lymph # (Auto) 0.98 L (1.32-3.57) K/mm3 [place] # (Auto) 0.45 (0.30-0.82) K/mm3 Eos # (Auto) 0.00 L (0.04-0.54) K/mm3 Baso # (Auto) 0.03 (0.01-0.08) K/mm3 Manual Slide Review Normal smear Sodium 139 (136-145) mEq/L Potassium 3.8 (3.5-5.1) mEq/L Chloride 105 (98-107) mEq/L Carbon Dioxide 26 (21-32) mEq/L Anion Gap 11.8 (5-15) BUN 20 H (7-18) mg/dL Creatinine 1.0 (0.7-1.3) mg/dL Est Cr Clr Drug Dosing 91.32 mL/min Estimated GFR (MDRD) > 60 (>60) mL/min BUN/Creatinine Ratio 20.0 H (14-18) Glucose 127 H (70-99) mg/dL Calcium 8.2 L (8.5-10.1) mg/dL Phosphorus 4.1 (2.6-4.7) mg/dL Magnesium 1.9 (1.8-2.4) mg/dL Total Bilirubin 0.4 (0.2-1.0) mg/dL AST 42 H (15-37) U/L ALT 35 (16-63) U/L Alkaline Phosphatase 70 (46-116) U/L C-Reactive Protein 15.5 H* (<1.0) mg/dL Total Protein 6.5 (6.4-8.2) g/dl Albumin 2.2 L (3.4-5.0) g/dl Globulin 4.3 gm/dL Albumin/Globulin Ratio 0.5 L (1-2) Vitamin D 25-Hydroxy 11.8 L (30.0-100.0) ng/ml Procalcitonin 0.77 H ng/mL Med Orders - Current: Current Medications Acetaminophen (Acetaminophen 325 Mg Tab) 650 mg PO Q4H PRN PRN Reason: Pain Last Admin: 08/16/21 00:56 Dose: 650 mg Documented by: Albuterol/Ipratropium (Albuterol/Ipratropium 3.0-0.5 Mg/3 Ml Neb Soln) 3 ml NEB Q4HRRT PRN PRN Reason: sob/wheezing Last Admin: 08/16/21 14:08 Dose: 3 ml Documented by: Baricitinib (Baricitinib 2 Mg Tab) 2 mg PO DAILY [facility] Last Admin: 08/16/21 09:45 Dose: 2 mg Documented by: Cholecalciferol (Cholecalciferol (Vitamin D3) 5,000 Unit Cap) 10,000 unit PO DAILY [facility] Last Admin: 08/16/21 11:06 Dose: 10,000 unit Documented by: Dexamethasone (Dexamethasone 4 Mg Tab) 6 mg PO DAILY [facility] Stop: 08/25/21 09:01 Last Admin: 08/16/21 09:45 Dose: 6 mg Documented by: Enoxaparin Sodium (Enoxaparin 40 Mg/0.4 Ml Syringe) 40 mg SUBCUT DAILY [facility] Last Admin: 08/16/21 09:45 Dose: 40 mg Documented by: Guaifenesin (Guaifenesin 600 Mg Tab.Er) 600 mg PO TID [facility] Last Admin: 08/16/21 15:36 Dose: 600 mg Documented by: Remdesivir 100 mg/ Sodium (Chloride) 100 mls @ 100 mls/hr IV Q24H [facility] Stop: 08/19/21 09:59 Last Admin: 08/16/21 09:46 Dose: 100 mls/hr Documented by: Ceftriaxone Sodium 2 gm/ (Sodium Chloride) 100 mls @ 200 mls/hr IV Q24H [facility] Stop: 08/20/21 10:59 Last Admin: 08/16/21 11:07 Dose: 200 mls/hr Documented by: Azithromycin 500 mg/ Sodium (Chloride) 250 mls @ 250 mls/hr IV Q24H [facility] Stop: 08/18/21 11:59 Last Admin: 08/16/21 11:07 Dose: 250 mls/hr Documented by: Metoprolol Succinate (Metoprolol Succinate 50 Mg Tab.Er) 50 mg PO DAILY [facility] Last Admin: 08/16/21 09:45 Dose: 50 mg Documented by: Ondansetron HCl (Ondansetron 4 Mg/2 Ml Sdv) 4 mg IV Q6H PRN PRN Reason: Nausea/Vomiting Simvastatin (Simvastatin 40 Mg Tab) 40 mg PO DAILY [facility] Last Admin: 08/16/21 09:45 Dose: 40 mg Documented by: Sodium Chloride (Sodium Chloride 0.9% 10 Ml Syringe) 10 ml FLUSH ASDIRECTED PRN PRN Reason: Keep Vein Open Last Admin: 08/15/21 03:54 Dose: 10 ml Documented by: Discontinued Medications Acetaminophen (Acetaminophen 325 Mg Tab) 975 mg PO NOW ONE Stop: 08/15/21 02:35 Last Admin: 08/15/21 02:42 Dose: 975 mg Documented by: Baricitinib (Baricitinib 2 Mg Tab) 4 mg PO DAILY [facility] Last Admin: 08/15/21 15:13 Dose: Not Given Documented by: Dexamethasone (Dexamethasone 10 Mg/Ml Sdv) 8 mg IVPUSH ONETIME ONE Stop: 08/15/21 02:28 Last Admin: 08/15/21 02:42 Dose: 8 mg Documented by: Remdesivir 200 mg/ Sodium (Chloride) 250 mls @ 250 mls/hr IV ONETIME ONE Stop: 08/15/21 03:26 Last Admin: 08/15/21 02:45 Dose: 250 mls/hr Documented by: Sodium Chloride (Normal Saline) 100 mls @ 60 mls/min IV ASDIRECTED [facility] Last Admin: 08/15/21 03:54 Dose: 60 mls/min Documented by: Influenza Virus Vaccine (Pharmacy To Dose - Influenza Vaccine) 1 each IM ONETIME ONE Stop: 08/15/21 12:52 Influenza Virus Vaccine (Flu Vacc [id number] 36mos Up/Pf 60 Mcg/0.5 Ml Syringe) 60 mcg IM .ONCE ONE Stop: 08/15/21 13:01 Iopamidol (Iopamidol 755 Mg/Ml 100 Ml Bottle) 100 ml IVPUSH ONETIME ONE Stop: 08/15/21 03:18 Last Admin: 08/15/21 03:54 Dose: 100 ml Documented by: Losartan Potassium (Losartan 100 Mg Tab) 100 mg PO DAILY [facility] Sodium Chloride (Sodium Chloride 0.9% 10 Ml Sdv) 10 ml FLUSH ONETIME ONE Stop: 08/15/21 03:18 Last Admin: 08/15/21 15:23 Dose: Not Given Documented by: - Exam Quality Assessment: Supplemental Oxygen General: Alert, Oriented HEENT: Pupils Equal, Mucous Membr. Moist/[place]: Supple Lungs: Crackles (Throughout both lung taylor). No: Normal Respiratory Effort (Increased respiratory rate and effort) Cardiovascular: Regular Rate, Regular Rhythm GI/Abdominal Exam: Normal Bowel Sounds, Soft, Non-Tender, No Organomegaly, No Distention, No Abnormal Bruit, No Mass Skin: Warm, Dry, Intact Neurological: No New Focal Deficit Psy/Mental Status: Alert, Normal Affect, Normal Mood - Patient Data Lab Results Last 24 hrs: Laboratory Results - last 24 hr 08/15/21 08/16/21 08/16/21 Range/Units 12:58 07:31 07:31 WBC 9.37 H (4.23-9.07) K/mm3 RBC 4.92 (4.63-6.08) M/mm3 Hgb 13.1 L D (13.7-17.5) gm/dl Hct 39.9 L (40.1-51.0) % MCV 81.1 (79.0-92.2) fl MCH 26.6 (25.7-32.2) pg MCHC 32.8 (32.2-35.5) g/dl RDW Std Deviation 42.0 (35.1-43.9) fL Plt Count 276 (163-337) K/mm3 MPV 9.0 L (9.4-12.3) fl Neut % (Auto) 83.4 H (34.0-67.9) % Lymph % (Auto) 10.5 L (21.8-53.1) % [place] % (Auto) 4.8 L (5.3-12.2) % Eos % (Auto) 0 L (0.8-7.0) Baso % (Auto) 0.3 (0.1-1.2) % Neut # (Auto) 7.82 H (1.78-5.38) K/mm3 Lymph # (Auto) 0.98 L (1.32-3.57) K/mm3 [place] # (Auto) 0.45 (0.30-0.82) K/mm3 Eos # (Auto) 0.00 L (0.04-0.54) K/mm3 Baso # (Auto) 0.03 (0.01-0.08) K/mm3 Manual Slide Review Normal smear Sodium 139 (136-145) mEq/L Potassium 3.8 (3.5-5.1) mEq/L Chloride 105 (98-107) mEq/L Carbon Dioxide 26 (21-32) mEq/L Anion Gap 11.8 (5-15) BUN 20 H (7-18) mg/dL Creatinine 1.0 (0.7-1.3) mg/dL Est Cr Clr Drug Dosing 91.32 mL/min Estimated GFR (MDRD) > 60 (>60) mL/min BUN/Creatinine Ratio 20.0 H (14-18) Glucose 127 H (70-99) mg/dL Calcium 8.2 L (8.5-10.1) mg/dL Phosphorus 4.1 (2.6-4.7) mg/dL Magnesium 1.9 (1.8-2.4) mg/dL Total Bilirubin 0.4 (0.2-1.0) mg/dL AST 42 H (15-37) U/L ALT 35 (16-63) U/L Alkaline Phosphatase 70 (46-116) U/L C-Reactive Protein 15.5 H* (<1.0) mg/dL Total Protein 6.5 (6.4-8.2) g/dl Albumin 2.2 L (3.4-5.0) g/dl Globulin 4.3 gm/dL Albumin/Globulin Ratio 0.5 L (1-2) Vitamin D 25-Hydroxy 11.8 L (30.0-100.0) ng/ml Procalcitonin 0.77 H ng/mL Result Diagrams: 08/16/21 07:31 08/16/21 07:31 Sepsis Event Note - Evaluation Sepsis Screening Result: No Definite Risk - Focused Exam Vital Signs: Vital Signs Temp Pulse Resp BP BP Pulse Ox Pulse Ox 08/16/21 16:00 18 96 08/16/21 15:38 98.1 F 31 H 158/106 H 158/106 H 98 08/16/21 15:37 30 H 96 08/16/21 15:00 10 L 95 08/16/21 14:24 90 L 08/16/21 14:08 85 L 08/16/21 14:00 17 91 L 08/16/21 13:00 89 L 08/16/21 12:47 92 L 08/16/21 12:12 30 H 149/93 H 89 L 08/16/21 12:11 25 H 87 L 08/16/21 12:00 98.1 F 31 H 84 L 08/16/21 11:48 29 H 143/92 H 89 L 08/16/21 11:47 20 92 L 08/16/21 11:00 29 H 91 L 08/16/21 10:55 95 08/16/21 10:35 25 H 142/92 H 89 L 08/16/21 10:34 23 H 89 L 08/16/21 10:26 26 H 146/102 H 89 L 08/16/21 10:25 28 H 90 L 08/16/21 10:13 84 28 H 91 L 08/16/21 10:05 90 L 08/16/21 10:00 98 F 28 H 95 08/16/21 09:45 74 153/97 H 08/16/21 09:40 95 08/16/21 08:25 08/16/21 08:18 Pulse Ox 08/16/21 16:00 08/16/21 15:38 08/16/21 15:37 08/16/21 15:00 08/16/21 14:24 08/16/21 14:08 08/16/21 14:00 08/16/21 13:00 08/16/21 12:47 08/16/21 12:12 08/16/21 12:11 08/16/21 12:00 08/16/21 11:48 08/16/21 11:47 08/16/21 11:00 08/16/21 10:55 08/16/21 10:35 08/16/21 10:34 08/16/21 10:26 08/16/21 10:25 08/16/21 10:13 08/16/21 10:05 08/16/21 10:00 08/16/21 09:45 08/16/21 09:40 08/16/21 08:25 82 L 08/16/21 08:18 81 L - Problem List & Annotations (1) HTN (hypertension) SNOMED Code(s): 89499141 Code(s): I10 - ESSENTIAL (PRIMARY) HYPERTENSION Status: Acute Current Visit: Yes (2) Hypoxia SNOMED Code(s): 713969602 Code(s): R09.02 - HYPOXEMIA Status: Acute Current Visit: Yes (3) Pneumonia due to COVID-19 virus SNOMED Code(s): 491810254934879313 Code(s): U07.1 - COVID-19; J12.82 - PNEUMONIA DUE TO CORONAVIRUS DISEASE 2019 Status: Acute Current Visit: Yes - Problem List Review Problem List Initiated/Reviewed/Updated: Yes - My Orders Last 24 Hours: My Active Orders 08/16/21 09:00 Enoxaparin [Lovenox] 40 mg SUBCUT DAILY Metoprolol Succinate [Toprol XL] 50 mg PO DAILY Remdesivir 100 mg Sodium Chloride 0.9% [Normal Saline] 100 ml IV Q24H Simvastatin [Zocor] 40 mg PO DAILY dexAMETHasone 6 mg PO DAILY 08/16/21 09:35 Patient Status [ADT] Routine 08/16/21 09:40 BIPAP [RT BiPAP/CPAP] [RC] ASDIRECTED 08/16/21 10:08 Blood Culture x2 Reflex Set [OM.PC] Stat 08/16/21 10:15 Cholecalciferol (Vitamin D3) [Vitamin D3] 10,000 unit PO DAILY 08/16/21 10:30 cefTRIAXone [Rocephin] 2 gm Sodium Chloride 0.9% [Normal Saline AdvBag] 100 ml IV Q24H 08/16/21 10:44 BLOOD CULTURE [MREF] Stat 08/16/21 10:50 BLOOD CULTURE [MREF] Stat 08/16/21 11:00 Azithromycin [Zithromax] 500 mg Sodium Chloride 0.9% [Normal Saline AdvBag] 250 ml IV Q24H 08/16/21 16:00 guaiFENesin [Mucinex] 600 mg PO TID 08/17/21 05:11 C-REACTIVE PROTEIN [CHEM] AM CBC WITH AUTO DIFF [HEME] AM CMP [COMPREHENSIVE METABOLIC PN,CMP] [CHEM] AM DD [D-DIMER QUANTITATIVE] [COAG] AM MAGNESIUM [CHEM] AM 08/18/21 05:11 C-REACTIVE PROTEIN [CHEM] AM CBC WITH AUTO DIFF [HEME] AM CMP [COMPREHENSIVE METABOLIC PN,CMP] [CHEM] AM MAGNESIUM [CHEM] AM 08/19/21 05:11 C-REACTIVE PROTEIN [CHEM] AM CBC WITH AUTO DIFF [HEME] AM CMP [COMPREHENSIVE METABOLIC PN,CMP] [CHEM] AM MAGNESIUM [CHEM] AM 08/20/21 05:11 C-REACTIVE PROTEIN [CHEM] AM CBC WITH AUTO DIFF [HEME] AM CMP [COMPREHENSIVE METABOLIC PN,CMP] [CHEM] AM MAGNESIUM [CHEM] AM - Plan Plan:: 45-year-old obese male with hypertension presents to the emergency department with hypoxemia secondary to COVID-19 pneumonia. Patient was diagnosed 2 days ago, but has been symptomatic for approximately 9 days. Oxygen saturations on arrival with EMS on 15 L nonrebreather was 81%. COVID-19 pneumonia Hypoxemia Patient started on remdesivir and dexamethasone overnight in the emergency department. There were no beds available, therefore patient had to be housed in the emergency department. He is currently on 50 L of high flow nasal cannula at 70% FiO2. His oxygen saturations are in the low 90s. CTA of the chest was performed which showed significant acute bilateral interstitial pneumonitis but no pulmonary embolism. Significant labs showed a D-dimer of 2.76, WBC of 11,750, CRP of 13.7. ABGs on 40 L high flow nasal cannula at 60% FiO2 showed a pH of 7.39, PO2 56, PCO2 34.9. Acute versus chronic renal insufficiency Creatinine is 1.4 with an estimated GFR of 54. No old records to determine baseline. We will continue to monitor. Hypertension Blood pressure was well controlled in the emergency department at 136/76. We will continue his home meds except RAVI inhibitor. Bioprosthetic aortic and mitral valve replacement No murmur no complications noted. No anticoagulation. 08/16/2021 Patient progressively worsened overnight. He is now in the ICU on BiPAP. He was able to eat being switched over to high flow for a very short time. He continues on remdesivir, dexamethasone, and baricitinib. C-reactive protein increased from 13.715.2. Procalcitonin did return at 0.77. He will be started on ceftriaxone and azithromycin. Vitamin D was significantly low at 11.8 and will be started on vitamin D3 10,000 units daily. WBC is slightly elevated at 9.37. Hemoglobin is low at 13.1. Platelets 276. Plan * Admit to medical floor * FiO2 to keep SPO2 between 88 and 94%. * Standard Covid precautions, protocol, and treatment * Remdesivir day 2 of 5 * Increase dexamethasone to 6 mg twice daily * Baricitinib renally dosed day 2 of 14 * Follow CBC, CMP, mag, CRP, and periodic D-dimer. * Continue metoprolol for blood pressure control, but hold losartan. * Renally dose medications. VTE prophylaxis with Lovenox CODE STATUS full code I spoke with patient to provide information about baricitinib. I offered the "fax sheet for patients and parents/caregivers, for baricitinib" to read and review. I stated that therapy has been approved by an emergency use authorization process and has not fully been FDA reviewed or approved. I shared potential risks from the therapy including increased risk for serious inf ections, anaphylaxis, and reaction to medication. I discussed there are other potential treatment options that are currently not FDA approved to treat COVID- 19. Offered opportunity to ask questions and all questions were answered. Patient voiced understanding and agreed to proceed with treatment.
[2021-08-16] MEDS: Dexamethasone 4 MG/ML SDV IVPUSH SCH (21:37)
[2021-08-17] MEDS: Albuterol/Ipratropium 3.0-0.5 MG/3 ML Neb Soln NEB PRN ×3 (07:51→20:38)
--- NOTE | 2021-08-17 08:33 | PCM.PN ---
- General Info Date of Service: 08/17/21 Admission Dx/Problem (Free Text): Admission Diagnosis/Problem Admission Diagnosis/Problem Hypoxia Subjective Update: No acute events overnight. No new nursing concerns. Patient has been pronating. Oxygenating well, despite needing more aggressive positive pressure and overall O2 support. No specific new complaints. - Review of Systems HEENT: Reports: No Symptoms Pulmonary: Reports: No Symptoms Cardiovascular: Reports: No Symptoms Gastrointestinal: Reports: No Symptoms - Patient Data Vitals - Most Recent: Last Vital Signs Temp 97.8 F 08/17/21 04:00 Pulse 70 08/17/21 04:00 Resp 24 H 08/17/21 04:00 BP 151/92 H 08/17/21 04:00 Pulse Ox 94 L 08/17/21 07:51 Weight - Most Recent: 302 lb 8 oz I&O - Last 24 Hours: Intake & Output 08/16/21 08/17/21 08/17/21 22:59 06:59 14:59 Intake Total 750 1000 Output Total 1100 450 Balance -350 550 Lab Results Last 24 Hours: Laboratory Results - last 24 hr 08/15/21 08/16/21 08/17/21 Range/Units 12:58 07:31 05:30 WBC 7.35 (4.23-9.07) K/mm3 RBC 4.80 (4.63-6.08) M/mm3 Hgb 12.9 L (13.7-17.5) gm/dl Hct 39.1 L (40.1-51.0) % MCV 81.5 (79.0-92.2) fl MCH 26.9 (25.7-32.2) pg MCHC 33.0 (32.2-35.5) g/dl RDW Std Deviation 41.4 (35.1-43.9) fL Plt Count 313 (163-337) K/mm3 MPV 9.0 L (9.4-12.3) fl Neut % (Auto) 85.6 H (34.0-67.9) % Lymph % (Auto) 8.7 L (21.8-53.1) % [place] % (Auto) 4.4 L (5.3-12.2) % Eos % (Auto) 0 L (0.8-7.0) Baso % (Auto) 0.1 (0.1-1.2) % Neut # (Auto) 6.29 H (1.78-5.38) K/mm3 Lymph # (Auto) 0.64 L (1.32-3.57) K/mm3 [place] # (Auto) 0.32 (0.30-0.82) K/mm3 Eos # (Auto) 0.00 L (0.04-0.54) K/mm3 Baso # (Auto) 0.01 (0.01-0.08) K/mm3 Manual Slide Review Normal smear D-Dimer, Quantitative (0.19-0.50) mg/L Sodium 139 (136-145) mEq/L Potassium 3.8 (3.5-5.1) mEq/L Chloride 105 (98-107) mEq/L Carbon Dioxide 26 (21-32) mEq/L Anion Gap 11.8 (5-15) BUN 20 H (7-18) mg/dL Creatinine 1.0 (0.7-1.3) mg/dL Est Cr Clr Drug Dosing 91.32 mL/min Estimated GFR (MDRD) > 60 (>60) mL/min BUN/Creatinine Ratio 20.0 H (14-18) Glucose 127 H (70-99) mg/dL Calcium 8.2 L (8.5-10.1) mg/dL Phosphorus 4.1 (2.6-4.7) mg/dL Magnesium 1.9 (1.8-2.4) mg/dL Total Bilirubin 0.4 (0.2-1.0) mg/dL AST 42 H (15-37) U/L ALT 35 (16-63) U/L Alkaline Phosphatase 70 (46-116) U/L C-Reactive Protein 15.5 H* (<1.0) mg/dL Total Protein 6.5 (6.4-8.2) g/dl Albumin 2.2 L (3.4-5.0) g/dl Globulin 4.3 gm/dL Albumin/Globulin Ratio 0.5 L (1-2) Vitamin D 25-Hydroxy 11.8 L (30.0-100.0) ng/ml Procalcitonin 0.77 H ng/mL 08/17/21 08/17/21 Range/Units 05:30 05:30 WBC (4.23-9.07) K/mm3 RBC (4.63-6.08) M/mm3 Hgb (13.7-17.5) gm/dl Hct (40.1-51.0) % MCV (79.0-92.2) fl MCH (25.7-32.2) pg MCHC (32.2-35.5) g/dl RDW Std Deviation (35.1-43.9) fL Plt Count (163-337) K/mm3 MPV (9.4-12.3) fl Neut % (Auto) (34.0-67.9) % Lymph % (Auto) (21.8-53.1) % [place] % (Auto) (5.3-12.2) % Eos % (Auto) (0.8-7.0) Baso % (Auto) (0.1-1.2) % Neut # (Auto) (1.78-5.38) K/mm3 Lymph # (Auto) (1.32-3.57) K/mm3 [place] # (Auto) (0.30-0.82) K/mm3 Eos # (Auto) (0.04-0.54) K/mm3 Baso # (Auto) (0.01-0.08) K/mm3 Manual Slide Review D-Dimer, Quantitative 6.14 H (0.19-0.50) mg/L Sodium 142 (136-145) mEq/L Potassium 4.6 (3.5-5.1) mEq/L Chloride 105 (98-107) mEq/L Carbon Dioxide 26 (21-32) mEq/L Anion Gap 15.6 H (5-15) BUN 20 H (7-18) mg/dL Creatinine 0.9 (0.7-1.3) mg/dL Est Cr Clr Drug Dosing 101.47 mL/min Estimated GFR (MDRD) > 60 (>60) mL/min BUN/Creatinine Ratio 22.2 H (14-18) Glucose 157 H (70-99) mg/dL Calcium 7.9 L (8.5-10.1) mg/dL Phosphorus (2.6-4.7) mg/dL Magnesium 1.9 (1.8-2.4) mg/dL Total Bilirubin 0.3 (0.2-1.0) mg/dL AST 29 (15-37) U/L ALT 38 (16-63) U/L Alkaline Phosphatase 71 (46-116) U/L C-Reactive Protein 6.9 H* (<1.0) mg/dL Total Protein 5.5 L (6.4-8.2) g/dl Albumin 2.2 L (3.4-5.0) g/dl Globulin 3.3 gm/dL Albumin/Globulin Ratio 0.7 L (1-2) Vitamin D 25-Hydroxy (30.0-100.0) ng/ml Procalcitonin ng/mL Med Orders - Current: Current Medications Acetaminophen (Acetaminophen 325 Mg Tab) 650 mg PO Q4H PRN PRN Reason: Pain Last Admin: 08/16/21 00:56 Dose: 650 mg Documented by: Albuterol/Ipratropium (Albuterol/Ipratropium 3.0-0.5 Mg/3 Ml Neb Soln) 3 ml NEB Q4HRRT PRN PRN Reason: sob/wheezing Last Admin: 08/17/21 07:51 Dose: 3 ml Documented by: Baricitinib (Baricitinib 2 Mg Tab) 2 mg PO DAILY [facility] Last Admin: 08/16/21 09:45 Dose: 2 mg Documented by: Cholecalciferol (Cholecalciferol (Vitamin D3) 5,000 Unit Cap) 10,000 unit PO DAILY [facility] Last Admin: 08/16/21 11:06 Dose: 10,000 unit Documented by: Dexamethasone (Dexamethasone 4 Mg/Ml Sdv) 6 mg IVPUSH Q12H [facility] Last Admin: 08/16/21 21:37 Dose: 6 mg Documented by: Enoxaparin Sodium (Enoxaparin 100 Mg/1 Ml Syringe) 100 mg SUBCUT Q12H [facility] Guaifenesin (Guaifenesin 600 Mg Tab.Er) 600 mg PO TID [facility] Last Admin: 08/16/21 21:37 Dose: 600 mg Documented by: Remdesivir 100 mg/ Sodium (Chloride) 100 mls @ 100 mls/hr IV Q24H [facility] Stop: 08/19/21 09:59 Last Admin: 08/16/21 09:46 Dose: 100 mls/hr Documented by: Ceftriaxone Sodium 2 gm/ (Sodium Chloride) 100 mls @ 200 mls/hr IV Q24H [facility] Stop: 08/20/21 10:59 Last Admin: 11/07/21 11:07 Dose: 200 mls/hr Documented by: Azithromycin 500 mg/ Sodium (Chloride) 250 mls @ 250 mls/hr IV Q24H [facility] Stop: 08/18/21 11:59 Last Admin: 08/16/21 11:07 Dose: 250 mls/hr Documented by: Metoprolol Succinate (Metoprolol Succinate 50 Mg Tab.Er) 50 mg PO DAILY [facility] Last Admin: 08/16/21 09:45 Dose: 50 mg Documented by: Ondansetron HCl (Ondansetron 4 Mg/2 Ml Sdv) 4 mg IV Q6H PRN PRN Reason: Nausea/Vomiting Simvastatin (Simvastatin 40 Mg Tab) 40 mg PO DAILY [facility] Last Admin: 08/16/21 09:45 Dose: 40 mg Documented by: Sodium Chloride (Sodium Chloride 0.9% 10 Ml Syringe) 10 ml FLUSH ASDIRECTED PRN PRN Reason: Keep Vein Open Last Admin: 08/15/21 03:54 Dose: 10 ml Documented by: Discontinued Medications Acetaminophen (Acetaminophen 325 Mg Tab) 975 mg PO NOW ONE Stop: 08/15/21 02:35 Last Admin: 08/15/21 02:42 Dose: 975 mg Documented by: Baricitinib (Baricitinib 2 Mg Tab) 4 mg PO DAILY [facility] Last Admin: 08/15/21 15:13 Dose: Not Given Documented by: Dexamethasone (Dexamethasone 10 Mg/Ml Sdv) 8 mg IVPUSH ONETIME ONE Stop: 08/15/21 02:28 Last Admin: 08/15/21 02:42 Dose: 8 mg Documented by: Dexamethasone (Dexamethasone 4 Mg Tab) 6 mg PO DAILY [facility] Stop: 08/25/21 09:01 Last Admin: 08/16/21 09:45 Dose: 6 mg Documented by: Enoxaparin Sodium (Enoxaparin 40 Mg/0.4 Ml Syringe) 40 mg SUBCUT DAILY [facility] Last Admin: 08/16/21 09:45 Dose: 40 mg Documented by: Remdesivir 200 mg/ Sodium (Chloride) 250 mls @ 250 mls/hr IV ONETIME ONE Stop: 08/15/21 03:26 Last Admin: 08/15/21 02:45 Dose: 250 mls/hr Documented by: Sodium Chloride (Normal Saline) 100 mls @ 60 mls/min IV ASDIRECTED [facility] Last Admin: 08/15/21 03:54 Dose: 60 mls/min Documented by: Influenza Virus Vaccine (Pharmacy To Dose - Influenza Vaccine) 1 each IM ONETIME ONE Stop: 08/15/21 12:52 Influenza Virus Vaccine (Flu Vacc [id number] 36mos Up/Pf 60 Mcg/0.5 Ml Syringe) 60 mcg IM .ONCE ONE Stop: 08/15/21 13:01 Iopamidol (Iopamidol 755 Mg/Ml 100 Ml Bottle) 100 ml IVPUSH ONETIME ONE Stop: 08/15/21 03:18 Last Admin: 08/15/21 03:54 Dose: 100 ml Documented by: Losartan Potassium (Losartan 100 Mg Tab) 100 mg PO DAILY [facility] Sodium Chloride (Sodium Chloride 0.9% 10 Ml Sdv) 10 ml FLUSH ONETIME ONE Stop: 08/15/21 03:18 Last Admin: 08/15/21 15:23 Dose: Not Given Documented by: - Exam Quality Assessment: Supplemental Oxygen, DVT Prophylaxis General: Alert, Oriented, Cooperative, No Acute Distress Neck: Supple Lungs: Normal Respiratory Effort, Decreased Breath Sounds Cardiovascular: Regular Rate GI/Abdominal Exam: Normal Bowel Sounds, Soft, Other (Obese) Extremities: Normal Inspection Skin: Warm - Patient Data Lab Results Last 24 hrs: Laboratory Results - last 24 hr 08/15/21 08/16/21 08/17/21 Range/Units 12:58 07:31 05:30 WBC 7.35 (4.23-9.07) K/mm3 RBC 4.80 (4.63-6.08) M/mm3 Hgb 12.9 L (13.7-17.5) gm/dl Hct 39.1 L (40.1-51.0) % MCV 81.5 (79.0-92.2) fl MCH 26.9 (25.7-32.2) pg MCHC 33.0 (32.2-35.5) g/dl RDW Std Deviation 41.4 (35.1-43.9) fL Plt Count 313 (163-337) K/mm3 MPV 9.0 L (9.4-12.3) fl Neut % (Auto) 85.6 H (34.0-67.9) % Lymph % (Auto) 8.7 L (21.8-53.1) % [place] % (Auto) 4.4 L (5.3-12.2) % Eos % (Auto) 0 L (0.8-7.0) Baso % (Auto) 0.1 (0.1-1.2) % Neut # (Auto) 6.29 H (1.78-5.38) K/mm3 Lymph # (Auto) 0.64 L (1.32-3.57) K/mm3 [place] # (Auto) 0.32 (0.30-0.82) K/mm3 Eos # (Auto) 0.00 L (0.04-0.54) K/mm3 Baso # (Auto) 0.01 (0.01-0.08) K/mm3 Manual Slide Review Normal smear D-Dimer, Quantitative (0.19-0.50) mg/L Sodium 139 (136-145) mEq/L Potassium 3.8 (3.5-5.1) mEq/L Chloride 105 (98-107) mEq/L Carbon Dioxide 26 (21-32) mEq/L Anion Gap 11.8 (5-15) BUN 20 H (7-18) mg/dL Creatinine 1.0 (0.7-1.3) mg/dL Est Cr Clr Drug Dosing 91.32 mL/min Estimated GFR (MDRD) > 60 (>60) mL/min BUN/Creatinine Ratio 20.0 H (14-18) Glucose 127 H (70-99) mg/dL Calcium 8.2 L (8.5-10.1) mg/dL Phosphorus 4.1 (2.6-4.7) mg/dL Magnesium 1.9 (1.8-2.4) mg/dL Total Bilirubin 0.4 (0.2-1.0) mg/dL AST 42 H (15-37) U/L ALT 35 (16-63) U/L Alkaline Phosphatase 70 (46-116) U/L C-Reactive Protein 15.5 H* (<1.0) mg/dL Total Protein 6.5 (6.4-8.2) g/dl Albumin 2.2 L (3.4-5.0) g/dl Globulin 4.3 gm/dL Albumin/Globulin Ratio 0.5 L (1-2) Vitamin D 25-Hydroxy 11.8 L (30.0-100.0) ng/ml Procalcitonin 0.77 H ng/mL 08/17/21 08/17/21 Range/Units 05:30 05:30 WBC (4.23-9.07) K/mm3 RBC (4.63-6.08) M/mm3 Hgb (13.7-17.5) gm/dl Hct (40.1-51.0) % MCV (79.0-92.2) fl MCH (25.7-32.2) pg MCHC (32.2-35.5) g/dl RDW Std Deviation (35.1-43.9) fL Plt Count (163-337) K/mm3 MPV (9.4-12.3) fl Neut % (Auto) (34.0-67.9) % Lymph % (Auto) (21.8-53.1) % [place] % (Auto) (5.3-12.2) % Eos % (Auto) (0.8-7.0) Baso % (Auto) (0.1-1.2) % Neut # (Auto) (1.78-5.38) K/mm3 Lymph # (Auto) (1.32-3.57) K/mm3 [place] # (Auto) (0.30-0.82) K/mm3 Eos # (Auto) (0.04-0.54) K/mm3 Baso # (Auto) (0.01-0.08) K/mm3 Manual Slide Review D-Dimer, Quantitative 6.14 H (0.19-0.50) mg/L Sodium 142 (136-145) mEq/L Potassium 4.6 (3.5-5.1) mEq/L Chloride 105 (98-107) mEq/L Carbon Dioxide 26 (21-32) mEq/L Anion Gap 15.6 H (5-15) BUN 20 H (7-18) mg/dL Creatinine 0.9 (0.7-1.3) mg/dL Est Cr Clr Drug Dosing 101.47 mL/min Estimated GFR (MDRD) > 60 (>60) mL/min BUN/Creatinine Ratio 22.2 H (14-18) Glucose 157 H (70-99) mg/dL Calcium 7.9 L (8.5-10.1) mg/dL Phosphorus (2.6-4.7) mg/dL Magnesium 1.9 (1.8-2.4) mg/dL Total Bilirubin 0.3 (0.2-1.0) mg/dL AST 29 (15-37) U/L ALT 38 (16-63) U/L Alkaline Phosphatase 71 (46-116) U/L C-Reactive Protein 6.9 H* (<1.0) mg/dL Total Protein 5.5 L (6.4-8.2) g/dl Albumin 2.2 L (3.4-5.0) g/dl Globulin 3.3 gm/dL Albumin/Globulin Ratio 0.7 L (1-2) Vitamin D 25-Hydroxy (30.0-100.0) ng/ml Procalcitonin ng/mL Result Diagrams: 08/17/21 05:30 08/17/21 05:30 Sepsis Event Note - Evaluation Sepsis Screening Result: Possible Sepsis Risk - Focused Exam Vital Signs: Vital Signs Temp Pulse Resp BP Pulse Ox Pulse Ox 08/17/21 07:51 94 L 08/17/21 06:00 90 L 08/17/21 05:00 94 L 08/17/21 04:00 97.8 F 70 24 H 151/92 H 93 L 08/17/21 03:00 28 H 94 L 08/17/21 02:00 29 H 96 08/17/21 01:00 7 L 88 L 08/17/21 00:44 25 H 91 L 08/17/21 00:25 95 08/17/21 00:00 97.6 F 25 H 158/102 H 95 08/16/21 23:00 26 H 95 08/16/21 22:00 17 96 08/16/21 21:00 26 H 96 - Problem List Review Problem List Initiated/Reviewed/Updated: Yes - My Orders Last 24 Hours: My Active Orders 08/17/21 08:15 Enoxaparin [Lovenox] 100 mg SUBCUT Q12H - Plan Plan:: 45-year-old obese male with hypertension presents to the emergency department with hypoxemia secondary to COVID-19 pneumonia. Patient was diagnosed 2 days ago, but has been symptomatic for approximately 9 days. Oxygen saturations on arrival with EMS on 15 L nonrebreather was 81%. For detailed history up-to-date please see prior notes. 1. Acute hypoxemic respiratory failure in the setting of COVID-19 pneumonia/pneumonitis. Status post monoclonal antibody, remdesivir, high-dose dexamethasone. Requiring positive pressure support with BiPAP. Continue to prone. Titrate respiratory support as tolerated. RT consult. Continue high-dose steroids. Increase in systemic anticoagulation dose due to increasing D-dimers. Vitamin C, zinc supplementation. 2. History hypertension. Continue home medications of regular dose. Monitor volume and renal status. 3. Status post bioprosthetic aortic and mitral valve. Currently receiving systemic anticoagulation in the setting of COVID-19 inflammatory response. CODE STATUS: Full code. DVT prophylaxis with Lovenox 100 twice daily
[2021-08-17] MEDS: Dexamethasone 4 MG/ML SDV IVPUSH SCH (09:08)
[2021-08-17] MEDS: guaiFENesin 600 MG Tab.ER PO SCH ×3 (09:08→20:33)
[2021-08-17] MEDS: Enoxaparin 100 MG/1 ML Syringe SUBCUT SCH ×2 (09:08→20:34)
[2021-08-17] MEDS: Metoprolol Succinate 50 MG Tab.ER PO SCH (09:08)
[2021-08-17] MEDS: Simvastatin 40 MG Tab PO SCH (09:08)
[2021-08-17] MEDS: Cholecalciferol (Vitamin D3) 5,000 UNIT Cap PO SCH (09:08)
[2021-08-17] MEDS: REMDESIVIR 100 MG in Sodium Chloride 0.9% 100 ML IV SCH (09:10)
[2021-08-17] MEDS: cefTRIAXone 2 GM in Sodium Chloride 0.9% 100 ML IV SCH (10:19)
[2021-08-17] MEDS: Azithromycin 500 MG in Sodium Chloride 0.9% 250 ML IV SCH (10:51)
[2021-08-17] MEDS: Dexamethasone 10 MG/ML SDV IVPUSH SCH (20:34)
[2021-08-17] MEDS: Acetaminophen 325 MG Tab PO PRN (21:28)
[2021-08-18] MEDS: Simvastatin 40 MG Tab PO SCH (08:32)
[2021-08-18] MEDS: Enoxaparin 100 MG/1 ML Syringe SUBCUT SCH ×2 (08:33→19:33)
[2021-08-18] MEDS: Cholecalciferol (Vitamin D3) 5,000 UNIT Cap PO SCH (08:34)
[2021-08-18] MEDS: Metoprolol Succinate 50 MG Tab.ER PO SCH (08:34)
[2021-08-18] MEDS: Dexamethasone 10 MG/ML SDV IVPUSH SCH (08:35)
[2021-08-18] MEDS: guaiFENesin 600 MG Tab.ER PO SCH ×3 (08:35→20:14)
[2021-08-18] MEDS: Albuterol/Ipratropium 3.0-0.5 MG/3 ML Neb Soln NEB PRN ×3 (08:45→20:26)
--- NOTE | 2021-08-18 09:08 | PCM.PN ---
- General Info Date of Service: 08/18/21 Admission Dx/Problem (Free Text): Admission Diagnosis/Problem Admission Diagnosis/Problem Hypoxia Subjective Update: No acute events overnight. No new nursing concerns. Patient continues to prone intermittently and doing well. He has no specific complaints this morning. No questions. Denies any chest pain, chest pressure or pleurisy. Taking good p.o. No abdominal complaints. No dysuria.. - Patient Data Vitals - Most Recent: Last Vital Signs Temp 96.8 F L 08/18/21 08:00 Pulse 83 08/18/21 08:34 Resp 16 08/18/21 08:00 BP 158/92 H 08/18/21 08:34 Pulse Ox 93 L 08/18/21 08:45 Weight - Most Recent: 302 lb 9.6 oz I&O - Last 24 Hours: Intake & Output 08/17/21 08/18/21 08/18/21 22:59 06:59 14:59 Intake Total 570 850 Output Total 650 900 Balance -80 -50 Lab Results Last 24 Hours: Laboratory Results - last 24 hr 08/18/21 08/18/21 Range/Units 05:17 05:17 WBC 8.38 (4.23-9.07) K/mm3 RBC 4.84 (4.63-6.08) M/mm3 Hgb 12.9 L (13.7-17.5) gm/dl Hct 39.4 L (40.1-51.0) % MCV 81.4 (79.0-92.2) fl MCH 26.7 (25.7-32.2) pg MCHC 32.7 (32.2-35.5) g/dl RDW Std Deviation 41.0 (35.1-43.9) fL Plt Count 350 H (163-337) K/mm3 MPV 8.7 L (9.4-12.3) fl Neut % (Auto) 84.6 H (34.0-67.9) % Lymph % (Auto) 8.1 L (21.8-53.1) % [place] % (Auto) 5.4 (5.3-12.2) % Eos % (Auto) 0.1 L (0.8-7.0) Baso % (Auto) 0.1 (0.1-1.2) % Neut # (Auto) 7.09 H (1.78-5.38) K/mm3 Lymph # (Auto) 0.68 L (1.32-3.57) K/mm3 [place] # (Auto) 0.45 (0.30-0.82) K/mm3 Eos # (Auto) 0.01 L (0.04-0.54) K/mm3 Baso # (Auto) 0.01 (0.01-0.08) K/mm3 Sodium 140 (136-145) mEq/L Potassium 4.9 (3.5-5.1) mEq/L Chloride 105 (98-107) mEq/L Carbon Dioxide 28 (21-32) mEq/L Anion Gap 11.9 (5-15) BUN 20 H (7-18) mg/dL Creatinine 1.0 (0.7-1.3) mg/dL Est Cr Clr Drug Dosing 91.32 mL/min Estimated GFR (MDRD) > 60 (>60) mL/min BUN/Creatinine Ratio 20.0 H (14-18) Glucose 129 H (70-99) mg/dL Calcium 7.7 L (8.5-10.1) mg/dL Magnesium 1.8 (1.8-2.4) mg/dL Total Bilirubin 0.3 (0.2-1.0) mg/dL AST 28 (15-37) U/L ALT 42 (16-63) U/L Alkaline Phosphatase 68 (46-116) U/L C-Reactive Protein 3.6 H* (<1.0) mg/dL Total Protein 5.4 L (6.4-8.2) g/dl Albumin 2.2 L (3.4-5.0) g/dl Globulin 3.2 gm/dL Albumin/Globulin Ratio 0.7 L (1-2) Med Orders - Current: Current Medications Acetaminophen (Acetaminophen 325 Mg Tab) 650 mg PO Q4H PRN PRN Reason: Pain Last Admin: 08/17/21 21:28 Dose: 650 mg Documented by: Albuterol/Ipratropium (Albuterol/Ipratropium 3.0-0.5 Mg/3 Ml Neb Soln) 3 ml NEB Q4HRRT PRN PRN Reason: sob/wheezing Last Admin: 08/18/21 08:45 Dose: 3 ml Documented by: Baricitinib (Baricitinib 2 Mg Tab) 4 mg PO DAILY [facility] Stop: 08/28/21 09:01 Last Admin: 08/18/21 08:33 Dose: 4 mg Documented by: Cholecalciferol (Cholecalciferol (Vitamin D3) 5,000 Unit Cap) 10,000 unit PO DAILY [facility] Last Admin: 08/18/21 08:34 Dose: 10,000 unit Documented by: Dexamethasone (Dexamethasone 10 Mg/Ml Sdv) 6 mg IVPUSH Q12H [facility] Last Admin: 08/18/21 08:35 Dose: 6 mg Documented by: Enoxaparin Sodium (Enoxaparin 100 Mg/1 Ml Syringe) 100 mg SUBCUT Q12H [facility] Last Admin: 08/18/21 08:33 Dose: 100 mg Documented by: Guaifenesin (Guaifenesin 600 Mg Tab.Er) 600 mg PO TID [facility] Last Admin: 08/18/21 08:35 Dose: 600 mg Documented by: Remdesivir 100 mg/ Sodium (Chloride) 100 mls @ 100 mls/hr IV Q24H [facility] Stop: 08/19/21 09:59 Last Admin: 08/17/21 09:10 Dose: 100 mls/hr Documented by: Ceftriaxone Sodium 2 gm/ (Sodium Chloride) 100 mls @ 200 mls/hr IV Q24H [facility] Stop: 08/20/21 10:59 Last Admin: 08/17/21 10:19 Dose: 200 mls/hr Documented by: Azithromycin 500 mg/ Sodium (Chloride) 250 mls @ 250 mls/hr IV Q24H [facility] Stop: 08/18/21 11:59 Last Admin: 08/17/21 10:51 Dose: 250 mls/hr Documented by: Metoprolol Succinate (Metoprolol Succinate 50 Mg Tab.Er) 50 mg PO DAILY [facility] Last Admin: 08/18/21 08:34 Dose: 50 mg Documented by: Ondansetron HCl (Ondansetron 4 Mg/2 Ml Sdv) 4 mg IV Q6H PRN PRN Reason: Nausea/Vomiting Simvastatin (Simvastatin 40 Mg Tab) 40 mg PO DAILY [facility] Last Admin: 08/18/21 08:32 Dose: 40 mg Documented by: Sodium Chloride (Sodium Chloride 0.9% 10 Ml Syringe) 10 ml FLUSH ASDIRECTED PRN PRN Reason: Keep Vein Open Last Admin: 08/15/21 03:54 Dose: 10 ml Documented by: Discontinued Medications Acetaminophen (Acetaminophen 325 Mg Tab) 975 mg PO NOW ONE Stop: 08/15/21 02:35 Last Admin: 08/15/21 02:42 Dose: 975 mg Documented by: Baricitinib (Baricitinib 2 Mg Tab) 4 mg PO DAILY [facility] Last Admin: 08/15/21 15:13 Dose: Not Given Documented by: Baricitinib (Baricitinib 2 Mg Tab) 2 mg PO DAILY [facility] Last Admin: 08/17/21 09:08 Dose: 2 mg Documented by: Dexamethasone (Dexamethasone 10 Mg/Ml Sdv) 8 mg IVPUSH ONETIME ONE Stop: 08/15/21 02:28 Last Admin: 08/15/21 02:42 Dose: 8 mg Documented by: Dexamethasone (Dexamethasone 4 Mg Tab) 6 mg PO DAILY [facility] Stop: 08/25/21 09:01 Last Admin: 08/16/21 09:45 Dose: 6 mg Documented by: Dexamethasone (Dexamethasone 4 Mg/Ml Sdv) 6 mg IVPUSH Q12H [facility] Last Admin: 08/17/21 09:08 Dose: 6 mg Documented by: Enoxaparin Sodium (Enoxaparin 40 Mg/0.4 Ml Syringe) 40 mg SUBCUT DAILY [facility] Last Admin: 08/16/21 09:45 Dose: 40 mg Documented by: Remdesivir 200 mg/ Sodium (Chloride) 250 mls @ 250 mls/hr IV ONETIME ONE Stop: 08/15/21 03:26 Last Admin: 08/15/21 02:45 Dose: 250 mls/hr Documented by: Sodium Chloride (Normal Saline) 100 mls @ 60 mls/min IV ASDIRECTED [facility] Last Admin: 08/15/21 03:54 Dose: 60 mls/min Documented by: Influenza Virus Vaccine (Pharmacy To Dose - Influenza Vaccine) 1 each IM ONETIME ONE Stop: 08/15/21 12:52 Influenza Virus Vaccine (Flu Vacc [id number] 36mos Up/Pf 60 Mcg/0.5 Ml Syringe) 60 mcg IM .ONCE ONE Stop: 08/15/21 13:01 Iopamidol (Iopamidol 755 Mg/Ml 100 Ml Bottle) 100 ml IVPUSH ONETIME ONE Stop: 08/15/21 03:18 Last Admin: 08/15/21 03:54 Dose: 100 ml Documented by: Losartan Potassium (Losartan 100 Mg Tab) 100 mg PO DAILY [facility] Sodium Chloride (Sodium Chloride 0.9% 10 Ml Sdv) 10 ml FLUSH ONETIME ONE Stop: 08/15/21 03:18 Last Admin: 08/15/21 15:23 Dose: Not Given Documented by: - Exam Quality Assessment: Supplemental Oxygen (Via high flow) General: Alert Neck: Supple Lungs: Normal Respiratory Effort, Decreased Breath Sounds Cardiovascular: Regular Rate GI/Abdominal Exam: Normal Bowel Sounds, Soft, Non-Tender, Other (Obese) Extremities: Normal Inspection, No Pedal Edema Skin: Warm Neurological: No New Focal Deficit - Patient Data Lab Results Last 24 hrs: Laboratory Results - last 24 hr 08/18/21 08/18/21 Range/Units 05:17 05:17 WBC 8.38 (4.23-9.07) K/mm3 RBC 4.84 (4.63-6.08) M/mm3 Hgb 12.9 L (13.7-17.5) gm/dl Hct 39.4 L (40.1-51.0) % MCV 81.4 (79.0-92.2) fl MCH 26.7 (25.7-32.2) pg MCHC 32.7 (32.2-35.5) g/dl RDW Std Deviation 41.0 (35.1-43.9) fL Plt Count 350 H (163-337) K/mm3 MPV 8.7 L (9.4-12.3) fl Neut % (Auto) 84.6 H (34.0-67.9) % Lymph % (Auto) 8.1 L (21.8-53.1) % Motley % (Auto) 5.4 (5.3-12.2) % Eos % (Auto) 0.1 L (0.8-7.0) Baso % (Auto) 0.1 (0.1-1.2) % Neut # (Auto) 7.09 H (1.78-5.38) K/mm3 Lymph # (Auto) 0.68 L (1.32-3.57) K/mm3 Motley # (Auto) 0.45 (0.30-0.82) K/mm3 Eos # (Auto) 0.01 L (0.04-0.54) K/mm3 Baso # (Auto) 0.01 (0.01-0.08) K/mm3 Sodium 140 (136-145) mEq/L Potassium 4.9 (3.5-5.1) mEq/L Chloride 105 (98-107) mEq/L Carbon Dioxide 28 (21-32) mEq/L Anion Gap 11.9 (5-15) BUN 20 H (7-18) mg/dL Creatinine 1.0 (0.7-1.3) mg/dL Est Cr Clr Drug Dosing 91.32 mL/min Estimated GFR (MDRD) > 60 (>60) mL/min BUN/Creatinine Ratio 20.0 H (14-18) Glucose 129 H (70-99) mg/dL Calcium 7.7 L (8.5-10.1) mg/dL Magnesium 1.8 (1.8-2.4) mg/dL Total Bilirubin 0.3 (0.2-1.0) mg/dL AST 28 (15-37) U/L ALT 42 (16-63) U/L Alkaline Phosphatase 68 (46-116) U/L C-Reactive Protein 3.6 H* (<1.0) mg/dL Total Protein 5.4 L (6.4-8.2) g/dl Albumin 2.2 L (3.4-5.0) g/dl Globulin 3.2 gm/dL Albumin/Globulin Ratio 0.7 L (1-2) Result Diagrams: 08/18/21 05:17 08/18/21 05:17 Sepsis Event Note - Evaluation Sepsis Screening Result: Possible Sepsis Risk - Focused Exam Vital Signs: Vital Signs Temp Pulse Pulse Resp BP BP Pulse Ox 08/18/21 08:45 08/18/21 08:34 83 158/92 H 08/18/21 08:00 96.8 F L 77 16 152/92 H 90 L 08/18/21 05:17 08/18/21 04:00 97.7 F 64 26 H 142/99 H 94 L 08/18/21 00:00 97.1 F 61 24 H 158/96 H 97 Pulse Ox Pulse Ox 08/18/21 08:45 93 L 08/18/21 08:34 08/18/21 08:00 08/18/21 05:17 96 08/18/21 04:00 08/18/21 00:00 - Problem List Review Problem List Initiated/Reviewed/Updated: Yes - My Orders Last 24 Hours: My Active Orders 08/17/21 08:15 Enoxaparin [Lovenox] 100 mg SUBCUT Q12H 08/18/21 08:26 Chest 1V Frontal [CR] Routine - Plan Plan:: 45-year-old obese male with hypertension presents to the emergency department with hypoxemia secondary to COVID-19 pneumonia. Oxygen saturations on arrival with EMS on 15 L nonrebreather was 81%. For detailed history up-to-date please see prior notes. 1. Acute hypoxemic respiratory failure in the setting of COVID-19 pneumonia/pneumonitis. Status post monoclonal antibody, remdesivir, high-dose dexamethasone. Requiring positive pressure support with BiPAP intermittently but now on high flow oxygen. Continue to prone. Titrate respiratory support as tolerated. RT consult. Continue high-dose steroids. Systemic anticoagulation dose due to increasing D-dimers. Vitamin C, zinc supplementation. Chest x-ray for maintenance examination for review. 2. History hypertension. Continue home medications of regular dose. Monitor volume and renal status. 3. Status post bioprosthetic aortic and mitral valve. Currently receiving systemic anticoagulation in the setting of COVID-19 inflammatory response. CODE STATUS: Full code. DVT prophylaxis with Lovenox 100 twice daily
[2021-08-18] MEDS: REMDESIVIR 100 MG in Sodium Chloride 0.9% 100 ML IV SCH (09:31)
--- NOTE | 2021-08-18 10:11 | CR ---
Chest: Frontal view of the chest was obtained. Comparison: Prior chest x-ray of 08/15/[address] also performed on 08/15/21. Increased density is seen throughout the left lung which is more prominent than seen on prior study. Increased density within the right lung remains stable. Heart is slightly enlarged. Tortuous thoracic aorta is seen. Sternotomy wires are present. Impression: 1. Increasing density throughout the left lung from prior study compatible with worsening COVID pneumonia. 2. Stable increased density throughout the right lung. 3. Stable cardiomegaly. Diagnostic code #3
[2021-08-18] MEDS: cefTRIAXone 2 GM in Sodium Chloride 0.9% 100 ML IV SCH (11:13)
[2021-08-18] MEDS: Azithromycin 500 MG in Sodium Chloride 0.9% 250 ML IV SCH (11:27)
[2021-08-18] MEDS: Acetaminophen 325 MG Tab PO PRN ×2 (14:02→18:55)
[2021-08-18] MEDS: methylPREDNISolone Sodium Succinate 40 MG/1 ML SDV IVPUSH SCH ×2 (18:25→21:59)
[2021-08-19] MEDS: Acetaminophen 325 MG Tab PO PRN ×2 (01:51→15:09)
[2021-08-19] MEDS: methylPREDNISolone Sodium Succinate 40 MG/1 ML SDV IVPUSH SCH ×4 (04:41→23:03)
[2021-08-19] MEDS: Enoxaparin 100 MG/1 ML Syringe SUBCUT SCH ×2 (07:51→20:04)
[2021-08-19] MEDS: Simvastatin 40 MG Tab PO SCH (08:00)
[2021-08-19] MEDS: Cholecalciferol (Vitamin D3) 5,000 UNIT Cap PO SCH (08:00)
[2021-08-19] MEDS: guaiFENesin 600 MG Tab.ER PO SCH ×3 (08:01→20:04)
[2021-08-19] MEDS: Metoprolol Succinate 50 MG Tab.ER PO SCH (08:02)
--- NOTE | 2021-08-19 08:27 | PCM.PN ---
- General Info Date of Service: 08/19/21 Admission Dx/Problem (Free Text): Admission Diagnosis/Problem Admission Diagnosis/Problem Hypoxia Subjective Update: No acute events overnight. No new nursing concerns other than blood pressure is running moderately high but not exceeding 180 mmHg. Patient proning and on his side is much as he can. Patient still switching between high flow and BiPAP for supplemental oxygen support. No constitutional symptoms. No new patient concerns. Denies chest pain, chest pressure or pleurisy. Taking good p.o. Maintenance imaging yesterday showed mild progression of disease. - Patient Data Vitals - Most Recent: Last Vital Signs Temp 97.4 F 08/19/21 07:47 Pulse 74 08/19/21 08:02 Resp 25 H 08/19/21 07:47 BP 148/116 H 08/19/21 08:02 Pulse Ox 94 L 08/19/21 07:47 Weight - Most Recent: 307 lb 9.6 oz I&O - Last 24 Hours: Intake & Output 08/18/21 08/19/21 08/19/21 22:59 06:59 14:59 Intake Total 1970 1050 Output Total 400 1250 Balance 1570 -200 Lab Results Last 24 Hours: Laboratory Results - last 24 hr 08/19/21 08/19/21 Range/Units 05:52 05:52 WBC 7.49 (4.23-9.07) K/mm3 RBC 4.86 (4.63-6.08) M/mm3 Hgb 12.8 L (13.7-17.5) gm/dl Hct 38.9 L (40.1-51.0) % MCV 80.0 (79.0-92.2) fl MCH 26.3 (25.7-32.2) pg MCHC 32.9 (32.2-35.5) g/dl RDW Std Deviation 39.8 (35.1-43.9) fL Plt Count 376 H (163-337) K/mm3 MPV 9.0 L (9.4-12.3) fl Neut % (Auto) 85.2 H (34.0-67.9) % Lymph % (Auto) 6.7 L (21.8-53.1) % [place] % (Auto) 3.7 L (5.3-12.2) % Eos % (Auto) 0 L (0.8-7.0) Baso % (Auto) 0.1 (0.1-1.2) % Neut # (Auto) 6.38 H (1.78-5.38) K/mm3 Lymph # (Auto) 0.50 L (1.32-3.57) K/mm3 [place] # (Auto) 0.28 L (0.30-0.82) K/mm3 Eos # (Auto) 0.00 L (0.04-0.54) K/mm3 Baso # (Auto) 0.01 (0.01-0.08) K/mm3 Sodium 138 (136-145) mEq/L Potassium 4.7 (3.5-5.1) mEq/L Chloride 105 (98-107) mEq/L Carbon Dioxide 25 (21-32) mEq/L Anion Gap 12.7 (5-15) BUN 22 H (7-18) mg/dL Creatinine 1.0 (0.7-1.3) mg/dL Est Cr Clr Drug Dosing 91.32 mL/min Estimated GFR (MDRD) > 60 (>60) mL/min BUN/Creatinine Ratio 22.0 H (14-18) Glucose 160 H (70-99) mg/dL Calcium 7.7 L (8.5-10.1) mg/dL [place] Results Last 24 Hours: Microbiology 08/16/21 10:50 Blood Culture - Preliminary Blood - Venous - Lab Draw 08/16/21 10:44 Blood Culture - Preliminary Blood - Venous Med Orders - Current: Current Medications Acetaminophen (Acetaminophen 325 Mg Tab) 650 mg PO Q4H PRN PRN Reason: Pain Last Admin: 08/19/21 01:51 Dose: 650 mg Documented by: Albuterol/Ipratropium (Albuterol/Ipratropium 3.0-0.5 Mg/3 Ml Neb Soln) 3 ml NEB Q4HRRT PRN PRN Reason: sob/wheezing Last Admin: 08/18/21 20:26 Dose: 3 ml Documented by: Baricitinib (Baricitinib 2 Mg Tab) 4 mg PO DAILY [facility] Stop: 08/28/21 09:01 Last Admin: 08/19/21 08:00 Dose: 4 mg Documented by: Cholecalciferol (Cholecalciferol (Vitamin D3) 5,000 Unit Cap) 10,000 unit PO DAILY [facility] Last Admin: 08/19/21 08:00 Dose: 10,000 unit Documented by: Enoxaparin Sodium (Enoxaparin 100 Mg/1 Ml Syringe) 100 mg SUBCUT Q12H [facility] Last Admin: 08/19/21 07:51 Dose: 100 mg Documented by: Guaifenesin (Guaifenesin 600 Mg Tab.Er) 600 mg PO TID [facility] Last Admin: 08/19/21 08:01 Dose: 600 mg Documented by: Remdesivir 100 mg/ Sodium (Chloride) 100 mls @ 100 mls/hr IV Q24H [facility] Stop: 08/19/21 09:59 Last Admin: 08/18/21 09:31 Dose: 100 mls/hr Documented by: Ceftriaxone Sodium 2 gm/ (Sodium Chloride) 100 mls @ 200 mls/hr IV Q24H [facility] Stop: 08/20/21 10:59 Last Admin: 08/18/21 11:13 Dose: 200 mls/hr Documented by: Methylprednisolone Sodium Succinate (Methylprednisolone Sodium Succinate 40 Mg/1 Ml Sdv) 80 mg IVPUSH Q6H [facility] Last Admin: 08/19/21 04:41 Dose: 80 mg Documented by: Metoprolol Succinate (Metoprolol Succinate 50 Mg Tab.Er) 50 mg PO DAILY [facility] Last Admin: 08/19/21 08:02 Dose: 50 mg Documented by: Ondansetron HCl (Ondansetron 4 Mg/2 Ml Sdv) 4 mg IV Q6H PRN PRN Reason: Nausea/Vomiting Simvastatin (Simvastatin 40 Mg Tab) 40 mg PO DAILY [facility] Last Admin: 08/19/21 08:00 Dose: 40 mg Documented by: Sodium Chloride (Sodium Chloride 0.9% 10 Ml Syringe) 10 ml FLUSH ASDIRECTED PRN PRN Reason: Keep Vein Open Last Admin: 08/15/21 03:54 Dose: 10 ml Documented by: Discontinued Medications Acetaminophen (Acetaminophen 325 Mg Tab) 975 mg PO NOW ONE Stop: 08/15/21 02:35 Last Admin: 08/15/21 02:42 Dose: 975 mg Documented by: Baricitinib (Baricitinib 2 Mg Tab) 4 mg PO DAILY [facility] Last Admin: 08/15/21 15:13 Dose: Not Given Documented by: Baricitinib (Baricitinib 2 Mg Tab) 2 mg PO DAILY [facility] Last Admin: 08/17/21 09:08 Dose: 2 mg Documented by: Dexamethasone (Dexamethasone 10 Mg/Ml Sdv) 8 mg IVPUSH ONETIME ONE Stop: 08/15/21 02:28 Last Admin: 08/15/21 02:42 Dose: 8 mg Documented by: Dexamethasone (Dexamethasone 4 Mg Tab) 6 mg PO DAILY [facility] Stop: 08/25/21 09:01 Last Admin: 08/16/21 09:45 Dose: 6 mg Documented by: Dexamethasone (Dexamethasone 4 Mg/Ml Sdv) 6 mg IVPUSH Q12H [facility] Last Admin: 08/17/21 09:08 Dose: 6 mg Documented by: Dexamethasone (Dexamethasone 10 Mg/Ml Sdv) 6 mg IVPUSH Q12H [facility] Last Admin: 08/18/21 08:35 Dose: 6 mg Documented by: Enoxaparin Sodium (Enoxaparin 40 Mg/0.4 Ml Syringe) 40 mg SUBCUT DAILY [facility] Last Admin: 08/16/21 09:45 Dose: 40 mg Documented by: Remdesivir 200 mg/ Sodium (Chloride) 250 mls @ 250 mls/hr IV ONETIME ONE Stop: 08/15/21 03:26 Last Admin: 08/15/21 02:45 Dose: 250 mls/hr Documented by: Sodium Chloride (Normal Saline) 100 mls @ 60 mls/min IV ASDIRECTED [facility] Last Admin: 08/15/21 03:54 Dose: 60 mls/min Documented by: Azithromycin 500 mg/ Sodium (Chloride) 250 mls @ 250 mls/hr IV Q24H [facility] Stop: 08/18/21 11:59 Last Admin: 08/18/21 11:27 Dose: 250 mls/hr Documented by: Influenza Virus Vaccine (Pharmacy To Dose - Influenza Vaccine) 1 each IM ONETIME ONE Stop: 08/15/21 12:52 Influenza Virus Vaccine (Flu Vacc [id number] 36mos Up/Pf 60 Mcg/0.5 Ml Syringe) 60 mcg IM .ONCE ONE Stop: 08/15/21 13:01 Iopamidol (Iopamidol 755 Mg/Ml 100 Ml Bottle) 100 ml IVPUSH ONETIME ONE Stop: 08/15/21 03:18 Last Admin: 08/15/21 03:54 Dose: 100 ml Documented by: Losartan Potassium (Losartan 100 Mg Tab) 100 mg PO DAILY [facility] Sodium Chloride (Sodium Chloride 0.9% 10 Ml Sdv) 10 ml FLUSH ONETIME ONE Stop: 08/15/21 03:18 Last Admin: 08/15/21 15:23 Dose: Not Given Documented by: - Exam Quality Assessment: Supplemental Oxygen (Via BiPAP currently) General: Alert Lungs: Normal Respiratory Effort, Decreased Breath Sounds Cardiovascular: Regular Rate GI/Abdominal Exam: Normal Bowel Sounds, Soft, Non-Tender, Other (Obese) Extremities: Normal Inspection, Normal Range of Motion Skin: Warm, Dry - Patient Data Lab Results Last 24 hrs: Laboratory Results - last 24 hr 08/19/21 08/19/21 Range/Units 05:52 05:52 WBC 7.49 (4.23-9.07) K/mm3 RBC 4.86 (4.63-6.08) M/mm3 Hgb 12.8 L (13.7-17.5) gm/dl Hct 38.9 L (40.1-51.0) % MCV 80.0 (79.0-92.2) fl MCH 26.3 (25.7-32.2) pg MCHC 32.9 (32.2-35.5) g/dl RDW Std Deviation 39.8 (35.1-43.9) fL Plt Count 376 H (163-337) K/mm3 MPV 9.0 L (9.4-12.3) fl Neut % (Auto) 85.2 H (34.0-67.9) % Lymph % (Auto) 6.7 L (21.8-53.1) % [place] % (Auto) 3.7 L (5.3-12.2) % Eos % (Auto) 0 L (0.8-7.0) Baso % (Auto) 0.1 (0.1-1.2) % Neut # (Auto) 6.38 H (1.78-5.38) K/mm3 Lymph # (Auto) 0.50 L (1.32-3.57) K/mm3 [place] # (Auto) 0.28 L (0.30-0.82) K/mm3 Eos # (Auto) 0.00 L (0.04-0.54) K/mm3 Baso # (Auto) 0.01 (0.01-0.08) K/mm3 Sodium 138 (136-145) mEq/L Potassium 4.7 (3.5-5.1) mEq/L Chloride 105 (98-107) mEq/L Carbon Dioxide 25 (21-32) mEq/L Anion Gap 12.7 (5-15) BUN 22 H (7-18) mg/dL Creatinine 1.0 (0.7-1.3) mg/dL Est Cr Clr Drug Dosing 91.32 mL/min Estimated GFR (MDRD) > 60 (>60) mL/min BUN/Creatinine Ratio 22.0 H (14-18) Glucose 160 H (70-99) mg/dL Calcium 7.7 L (8.5-10.1) mg/dL Result Diagrams: 08/19/21 05:52 08/19/21 05:52 Brenden Results Last 24 hrs: Microbiology 08/16/21 10:50 Blood Culture - Preliminary Blood - Venous - Lab Draw 08/16/21 10:44 Blood Culture - Preliminary Blood - Venous Sepsis Event Note - Evaluation Sepsis Screening Result: Possible Sepsis Risk - Focused Exam Vital Signs: Vital Signs Temp Pulse Pulse Resp BP BP Pulse Ox 08/19/21 08:02 74 148/116 H 08/19/21 07:47 97.4 F 76 25 H 148/116 H 94 L 08/19/21 06:25 08/19/21 04:00 98.0 F 71 27 H 154/111 H 93 L 08/19/21 00:59 08/19/21 00:00 96.9 F 74 21 H 152/90 H 94 L 08/18/21 20:37 08/18/21 20:26 Pulse Ox Pulse Ox 08/19/21 08:02 08/19/21 07:47 08/19/21 06:25 94 L 08/19/21 04:00 08/19/21 00:59 93 L 08/19/21 00:00 08/18/21 20:37 90 L 08/18/21 20:26 86 L - Problem List Review Problem List Initiated/Reviewed/Updated: Yes - My Orders Last 24 Hours: My Active Orders 08/18/21 17:00 methylPREDNISolone Sod Succ [Solu-MEDROL] 80 mg IVPUSH Q6H 08/19/21 05:52 CBC WITH AUTO DIFF [HEME] Routine - Plan Plan:: 45-year-old obese male with hypertension presents to the emergency department with hypoxemia secondary to COVID-19 pneumonia. Oxygen saturations on arrival with EMS on 15 L nonrebreather was 81%. For detailed history up-to-date please see prior notes. 1. Acute hypoxemic respiratory failure in the setting of COVID-19 pneumonia/pneumonitis. Status post monoclonal antibody, remdesivir, high-dose dexamethasone, now with transition to high-dose Solu-Medrol 80 mg every 6 hours. Requiring positive pressure support with BiPAP intermittently but now on high flow oxygen. Continue to prone. Titrate respiratory support as tolerated. RT consult. Continue high-dose steroids. Systemic anticoagulation dose due to increasing D-dimers. Vitamin C, zinc supplementation. Chest x-ray for maintenance examination for review within the next 48 hours. 2. History hypertension. Continue home medications of regular dose. Monitor volume and renal status. 3. Status post bioprosthetic aortic and mitral valve. Currently receiving systemic anticoagulation in the setting of COVID-19 inflammatory response. CODE STATUS: Full code. DVT prophylaxis with Lovenox 100 twice daily
[2021-08-19] MEDS: Albuterol/Ipratropium 3.0-0.5 MG/3 ML Neb Soln NEB PRN ×3 (09:07→20:14)
[2021-08-19] MEDS: cefTRIAXone 2 GM in Sodium Chloride 0.9% 100 ML IV SCH (09:47)
[2021-08-19] MEDS: REMDESIVIR 100 MG in Sodium Chloride 0.9% 100 ML IV SCH (09:52)
[2021-08-19] MEDS ORDERED: Sodium Chloride 0.65% Nasal Spray 45 ML Bottle NAS PRN (14:45)
[2021-08-19] MEDS ORDERED: Metoprolol Succinate 50 MG Tab.ER PO ONE (17:00)
[2021-08-20] MEDS: Acetaminophen 325 MG Tab PO PRN (00:17)
[2021-08-20] MEDS: methylPREDNISolone Sodium Succinate 40 MG/1 ML SDV IVPUSH SCH (04:37)
--- NOTE | 2021-08-20 07:24 | PCM.PN ---
- General Info Date of Service: 08/20/21 Admission Dx/Problem (Free Text): Admission Diagnosis/Problem Admission Diagnosis/Problem Hypoxia Subjective Update: No acute events overnight. No new nursing concerns. Tolerated high flow yesterday without any complication. Was on BiPAP during sleep hours. Continues to prone for longer periods of time. Patient does not endorse any specific complaints. Now requiring 70% FiO2 as opposed to 90 or 100. - Patient Data Vitals - Most Recent: Last Vital Signs Temp 97.4 F 08/20/21 04:00 Pulse 65 08/20/21 04:00 Resp 20 08/20/21 04:00 BP 146/90 H 08/20/21 04:00 Pulse Ox 94 L 08/20/21 04:00 Weight - Most Recent: 306 lb 3.2 oz I&O - Last 24 Hours: Intake & Output 08/19/21 08/20/21 08/20/21 22:59 06:59 14:59 Intake Total 900 400 Output Total 650 Balance 250 400 Lab Results Last 24 Hours: Laboratory Results - last 24 hr 08/19/21 08/20/21 08/20/21 Range/Units 05:52 04:36 04:36 WBC 10.80 H (4.23-9.07) K/mm3 RBC 5.12 (4.63-6.08) M/mm3 Hgb 13.5 L (13.7-17.5) gm/dl Hct 40.5 (40.1-51.0) % MCV 79.1 (79.0-92.2) fl MCH 26.4 (25.7-32.2) pg MCHC 33.3 (32.2-35.5) g/dl RDW Std Deviation 39.5 (35.1-43.9) fL Plt Count 433 H (163-337) K/mm3 MPV 8.8 L (9.4-12.3) fl Neut % (Auto) 85.0 H (34.0-67.9) % Lymph % (Auto) 5.6 L (21.8-53.1) % [place] % (Auto) 5.0 L (5.3-12.2) % Eos % (Auto) 0 L (0.8-7.0) Baso % (Auto) 0.2 (0.1-1.2) % Neut # (Auto) 9.19 H (1.78-5.38) K/mm3 Lymph # (Auto) 0.60 L (1.32-3.57) K/mm3 [place] # (Auto) 0.54 (0.30-0.82) K/mm3 Eos # (Auto) 0.00 L (0.04-0.54) K/mm3 Baso # (Auto) 0.02 (0.01-0.08) K/mm3 Manual Slide Review Not Reportable Sodium 139 (136-145) mEq/L Potassium 4.7 (3.5-5.1) mEq/L Chloride 105 (98-107) mEq/L Carbon Dioxide 25 (21-32) mEq/L Anion Gap 13.7 (5-15) BUN 21 H (7-18) mg/dL Creatinine 0.9 (0.7-1.3) mg/dL Est Cr Clr Drug Dosing 101.47 mL/min Estimated GFR (MDRD) > 60 (>60) mL/min BUN/Creatinine Ratio 23.3 H (14-18) Glucose 143 H (70-99) mg/dL Calcium 8.1 L (8.5-10.1) mg/dL Magnesium 1.9 (1.8-2.4) mg/dL Total Bilirubin 0.3 (0.2-1.0) mg/dL AST 18 (15-37) U/L ALT 46 (16-63) U/L Alkaline Phosphatase 73 (46-116) U/L C-Reactive Protein 0.9 (<1.0) mg/dL Total Protein 5.7 L (6.4-8.2) g/dl Albumin 2.4 L (3.4-5.0) g/dl Globulin 3.3 gm/dL Albumin/Globulin Ratio 0.7 L (1-2) Med Orders - Current: Current Medications Acetaminophen (Acetaminophen 325 Mg Tab) 650 mg PO Q4H PRN PRN Reason: Pain Last Admin: 08/20/21 00:17 Dose: 650 mg Documented by: Albuterol/Ipratropium (Albuterol/Ipratropium 3.0-0.5 Mg/3 Ml Neb Soln) 3 ml NEB Q4HRRT PRN PRN Reason: sob/wheezing Last Admin: 08/19/21 20:14 Dose: 3 ml Documented by: Baricitinib (Baricitinib 2 Mg Tab) 4 mg PO DAILY [facility] Stop: 08/28/21 09:01 Last Admin: 08/19/21 08:00 Dose: 4 mg Documented by: Cholecalciferol (Cholecalciferol (Vitamin D3) 5,000 Unit Cap) 10,000 unit PO DAILY [facility] Last Admin: 08/19/21 08:00 Dose: 10,000 unit Documented by: Enoxaparin Sodium (Enoxaparin 100 Mg/1 Ml Syringe) 100 mg SUBCUT Q12H [facility] Last Admin: 08/19/21 20:04 Dose: 100 mg Documented by: Guaifenesin (Guaifenesin 600 Mg Tab.Er) 600 mg PO TID [facility] Last Admin: 08/19/21 20:04 Dose: 600 mg Documented by: Ceftriaxone Sodium 2 gm/ (Sodium Chloride) 100 mls @ 200 mls/hr IV Q24H [facility] Stop: 08/20/21 10:59 Last Admin: 08/19/21 09:47 Dose: 200 mls/hr Documented by: Methylprednisolone Sodium Succinate (Methylprednisolone Sodium Succinate 40 Mg/1 Ml Sdv) 80 mg IVPUSH Q6H [facility] Last Admin: 08/20/21 04:37 Dose: 80 mg Documented by: Metoprolol Succinate (Metoprolol Succinate 50 Mg Tab.Er) 100 mg PO DAILY [facility] Ondansetron HCl (Ondansetron 4 Mg/2 Ml Sdv) 4 mg IV Q6H PRN PRN Reason: Nausea/Vomiting Simvastatin (Simvastatin 40 Mg Tab) 40 mg PO DAILY [facility] Last Admin: 08/19/21 08:00 Dose: 40 mg Documented by: Sodium Chloride (Sodium Chloride 0.9% 10 Ml Syringe) 10 ml FLUSH ASDIRECTED PRN PRN Reason: Keep Vein Open Last Admin: 08/15/21 03:54 Dose: 10 ml Documented by: Sodium Chloride (Sodium Chloride 0.65% Nasal [place] 45 Ml Bottle) 0 ml THIAGO Q2H PRN PRN Reason: Nasal Dryness Last Admin: 08/19/21 15:09 Dose: 1 spr Documented by: Discontinued Medications Acetaminophen (Acetaminophen 325 Mg Tab) 975 mg PO NOW ONE Stop: 08/15/21 02:35 Last Admin: 08/15/21 02:42 Dose: 975 mg Documented by: Baricitinib (Baricitinib 2 Mg Tab) 4 mg PO DAILY [facility] Last Admin: 08/15/21 15:13 Dose: Not Given Documented by: Baricitinib (Baricitinib 2 Mg Tab) 2 mg PO DAILY [facility] Last Admin: 08/17/21 09:08 Dose: 2 mg Documented by: Dexamethasone (Dexamethasone 10 Mg/Ml Sdv) 8 mg IVPUSH ONETIME [facility] Stop: 08/15/21 02:28 Last Admin: 08/15/21 02:42 Dose: 8 mg Documented by: Dexamethasone (Dexamethasone 4 Mg Tab) 6 mg PO DAILY [facility] Stop: 08/25/21 09:01 Last Admin: 08/16/21 09:45 Dose: 6 mg Documented by: Dexamethasone (Dexamethasone 4 Mg/Ml Sdv) 6 mg IVPUSH Q12H [facility] Last Admin: 08/17/21 09:08 Dose: 6 mg Documented by: Dexamethasone (Dexamethasone 10 Mg/Ml Sdv) 6 mg IVPUSH Q12H [facility] Last Admin: 08/18/21 08:35 Dose: 6 mg Documented by: Enoxaparin Sodium (Enoxaparin 40 Mg/0.4 Ml Syringe) 40 mg SUBCUT DAILY [facility] Last Admin: 08/16/21 09:45 Dose: 40 mg Documented by: Remdesivir 200 mg/ Sodium (Chloride) 250 mls @ 250 mls/hr IV ONETIME ONE Stop: 08/15/21 03:26 Last Admin: 08/15/21 02:45 Dose: 250 mls/hr Documented by: Sodium Chloride (Normal Saline) 100 mls @ 60 mls/min IV ASDIRECTED [facility] Last Admin: 08/15/21 03:54 Dose: 60 mls/min Documented by: Remdesivir 100 mg/ Sodium (Chloride) 100 mls @ 100 mls/hr IV Q24H [facility] Stop: 08/19/21 09:59 Last Admin: 08/19/21 09:52 Dose: 100 mls/hr Documented by: Azithromycin 500 mg/ Sodium (Chloride) 250 mls @ 250 mls/hr IV Q24H [facility] Stop: 08/18/21 11:59 Last Admin: 08/18/21 11:27 Dose: 250 mls/hr Documented by: Influenza Virus Vaccine (Pharmacy To Dose - Influenza Vaccine) 1 each IM ONETIME ONE Stop: 08/15/21 12:52 Influenza Virus Vaccine (Flu Vacc [id number] 36mos Up/Pf 60 Mcg/0.5 Ml Syringe) 60 mcg IM .ONCE ONE Stop: 08/15/21 13:01 Iopamidol (Iopamidol 755 Mg/Ml 100 Ml Bottle) 100 ml IVPUSH ONETIME ONE Stop: 08/15/21 03:18 Last Admin: 08/15/21 03:54 Dose: 100 ml Documented by: Losartan Potassium (Losartan 100 Mg Tab) 100 mg PO DAILY [facility] Metoprolol Succinate (Metoprolol Succinate 50 Mg Tab.Er) 50 mg PO DAILY [facility] Last Admin: 08/19/21 08:02 Dose: 50 mg Documented by: Metoprolol Succinate (Metoprolol Succinate 50 Mg Tab.Er) 50 mg PO ONETIME ONE Stop: 08/19/21 17:01 Last Admin: 08/19/21 16:56 Dose: 50 mg Documented by: Sodium Chloride (Sodium Chloride 0.9% 10 Ml Sdv) 10 ml FLUSH ONETIME ONE Stop: 08/15/21 03:18 Last Admin: 08/15/21 15:23 Dose: Not Given Documented by: - Exam Quality Assessment: Supplemental Oxygen (BiPAP currently.) General: Alert Neck: Supple, No JVD Lungs: Normal Respiratory Effort, Decreased Breath Sounds, Rhonchi Cardiovascular: Regular Rate GI/Abdominal Exam: Normal Bowel Sounds, Soft, Non-Tender, Other (Obese) Extremities: Normal Inspection, No Pedal Edema Skin: Warm, Dry - Patient Data Lab Results Last 24 hrs: Laboratory Results - last 24 hr 08/19/21 08/20/21 08/20/21 Range/Units 05:52 04:36 04:36 WBC 10.80 H (4.23-9.07) K/mm3 RBC 5.12 (4.63-6.08) M/mm3 Hgb 13.5 L (13.7-17.5) gm/dl Hct 40.5 (40.1-51.0) % MCV 79.1 (79.0-92.2) fl MCH 26.4 (25.7-32.2) pg MCHC 33.3 (32.2-35.5) g/dl RDW Std Deviation 39.5 (35.1-43.9) fL Plt Count 433 H (163-337) K/mm3 MPV 8.8 L (9.4-12.3) fl Neut % (Auto) 85.0 H (34.0-67.9) % Lymph % (Auto) 5.6 L (21.8-53.1) % [place] % (Auto) 5.0 L (5.3-12.2) % Eos % (Auto) 0 L (0.8-7.0) Baso % (Auto) 0.2 (0.1-1.2) % Neut # (Auto) 9.19 H (1.78-5.38) K/mm3 Lymph # (Auto) 0.60 L (1.32-3.57) K/mm3 [place] # (Auto) 0.54 (0.30-0.82) K/mm3 Eos # (Auto) 0.00 L (0.04-0.54) K/mm3 Baso # (Auto) 0.02 (0.01-0.08) K/mm3 Manual Slide Review Not Reportable Sodium 139 (136-145) mEq/L Potassium 4.7 (3.5-5.1) mEq/L Chloride 105 (98-107) mEq/L Carbon Dioxide 25 (21-32) mEq/L Anion Gap 13.7 (5-15) BUN 21 H (7-18) mg/dL Creatinine 0.9 (0.7-1.3) mg/dL Est Cr Clr Drug Dosing 101.47 mL/min Estimated GFR (MDRD) > 60 (>60) mL/min BUN/Creatinine Ratio 23.3 H (14-18) Glucose 143 H (70-99) mg/dL Calcium 8.1 L (8.5-10.1) mg/dL Magnesium 1.9 (1.8-2.4) mg/dL Total Bilirubin 0.3 (0.2-1.0) mg/dL AST 18 (15-37) U/L ALT 46 (16-63) U/L Alkaline Phosphatase 73 (46-116) U/L C-Reactive Protein 0.9 (<1.0) mg/dL Total Protein 5.7 L (6.4-8.2) g/dl Albumin 2.4 L (3.4-5.0) g/dl Globulin 3.3 gm/dL Albumin/Globulin Ratio 0.7 L (1-2) Result Diagrams: 08/20/21 04:36 08/20/21 04:36 Sepsis Event Note - Evaluation Sepsis Screening Result: Possible Sepsis Risk - Focused Exam Vital Signs: Vital Signs Temp Pulse Resp BP Pulse Ox Pulse Ox Pulse Ox 08/20/21 04:00 97.4 F 65 20 146/90 H 94 L 08/19/21 23:21 92 L 08/19/21 23:10 97.3 F 78 22 H 141/102 H 96 08/19/21 21:01 97 08/19/21 20:56 100 08/19/21 20:36 97 08/19/21 20:14 87 L 08/19/21 20:02 97.1 F 78 24 H 156/111 H 88 L - Problem List Review Problem List Initiated/Reviewed/Updated: Yes - My Orders Last 24 Hours: My Active Orders 08/19/21 14:45 Sodium Chloride 0.65% [[place] Nasal [place]] 0 ml THIAGO Q2H PRN 08/20/21 09:00 Metoprolol Succinate [Toprol XL] 100 mg PO DAILY - Plan Plan:: 45-year-old obese male with hypertension presents to the emergency department with hypoxemia secondary to COVID-19 pneumonia. Oxygen saturations on arrival with EMS on 15 L nonrebreather was 81%. For detailed history up-to-date please see prior notes. 1. Acute hypoxemic respiratory failure in the setting of COVID-19 pneumonia/pneumonitis. Status post monoclonal antibody, remdesivir, high-dose dexamethasone, now with transition to high-dose Solu-Medrol 80 mg every 6 hours. Requiring positive pressure support with BiPAP intermittently but now on high flow oxygen. Continue to prone as much as possible Titrate respiratory support as tolerated. RT consult. Continue high-dose steroids. Systemic anticoagulation dose due to increasing D-dimers. Vitamin C, zinc supplementation. We will repeat inflammatory markers and chest x-ray maintenance imaging tomorrow 08/21. 2. History hypertension. Continue home medications of regular dose. Monitor volume and renal status. 3. Status post bioprosthetic aortic and mitral valve. Currently receiving systemic anticoagulation in the setting of COVID-19 inflammatory response. CODE STATUS: Full code. DVT prophylaxis with Lovenox 100 twice daily
[2021-08-20] MEDS: Enoxaparin 100 MG/1 ML Syringe SUBCUT SCH ×2 (08:23→20:05)
[2021-08-20] MEDS: Simvastatin 40 MG Tab PO SCH (08:23)
[2021-08-20] MEDS: guaiFENesin 600 MG Tab.ER PO SCH ×3 (08:24→20:05)
[2021-08-20] MEDS: Metoprolol Succinate 50 MG Tab.ER PO SCH (08:24)
[2021-08-20] MEDS: Cholecalciferol (Vitamin D3) 5,000 UNIT Cap PO SCH (08:25)
[2021-08-20] MEDS: Albuterol/Ipratropium 3.0-0.5 MG/3 ML Neb Soln NEB PRN ×2 (09:11→20:34)
[2021-08-20] MEDS: methylPREDNISolone Sodium Succinate 125 MG/2 ML SDV IVPUSH SCH ×2 (10:20→16:04)
[2021-08-20] MEDS: cefTRIAXone 2 GM in Sodium Chloride 0.9% 100 ML IV SCH (10:20)
[2021-08-21] MEDS: methylPREDNISolone Sodium Succinate 125 MG/2 ML SDV IVPUSH SCH ×5 (00:04→22:48)
--- NOTE | 2021-08-21 07:06 | PCM.PN ---
- General Info Date of Service: 08/21/21 Admission Dx/Problem (Free Text): Admission Diagnosis/Problem Admission Diagnosis/Problem Hypoxia Subjective Update: No acute events overnight. No new nursing concerns. Patient proning off and on during the night. Acceptable saturations at 88% or higher when supine. 96% when prone. Patient does not endorse any specific complaints. - Patient Data Vitals - Most Recent: Last Vital Signs Temp 97.5 F 08/21/21 03:45 Pulse 74 08/21/21 03:45 Resp 19 08/21/21 03:45 BP 149/90 H 08/21/21 03:45 Pulse Ox 92 L 08/21/21 03:45 Weight - Most Recent: 305 lb 12.8 oz I&O - Last 24 Hours: Intake & Output 08/20/21 08/21/21 08/21/21 22:59 06:59 14:59 Intake Total 1395 800 Output Total 925 1300 Balance 470 -500 Lab Results Last 24 Hours: Laboratory Results - last 24 hr 08/21/21 08/21/21 08/21/21 Range/Units 04:47 04:47 04:47 WBC 12.67 H (4.23-9.07) K/mm3 RBC 5.21 (4.63-6.08) M/mm3 Hgb 13.9 (13.7-17.5) gm/dl Hct 41.5 (40.1-51.0) % MCV 79.7 (79.0-92.2) fl MCH 26.7 (25.7-32.2) pg MCHC 33.5 (32.2-35.5) g/dl RDW Std Deviation 40.2 (35.1-43.9) fL Plt Count 477 H (163-337) K/mm3 MPV 9.1 L (9.4-12.3) fl Neut % (Auto) 86.5 H (34.0-67.9) % Lymph % (Auto) 4.7 L (21.8-53.1) % Brooks % (Auto) 3.9 L (5.3-12.2) % Eos % (Auto) 0 L (0.8-7.0) Baso % (Auto) 0.2 (0.1-1.2) % Neut # (Auto) 10.97 H (1.78-5.38) K/mm3 Lymph # (Auto) 0.60 L (1.32-3.57) K/mm3 [place] # (Auto) 0.49 (0.30-0.82) K/mm3 Eos # (Auto) 0.00 L (0.04-0.54) K/mm3 Baso # (Auto) 0.02 (0.01-0.08) K/mm3 D-Dimer, Quantitative 2.27 H (0.19-0.50) mg/L Sodium 139 (136-145) mEq/L Potassium 4.9 (3.5-5.1) mEq/L Chloride 104 (98-107) mEq/L Carbon Dioxide 25 (21-32) mEq/L Anion Gap 14.9 (5-15) BUN 27 H (7-18) mg/dL Creatinine 1.0 (0.7-1.3) mg/dL Est Cr Clr Drug Dosing 91.32 mL/min Estimated GFR (MDRD) > 60 (>60) mL/min BUN/Creatinine Ratio 27.0 H (14-18) Glucose 144 H (70-99) mg/dL Calcium 7.9 L (8.5-10.1) mg/dL Med Orders - Current: Current Medications Acetaminophen (Acetaminophen 325 Mg Tab) 650 mg PO Q4H PRN PRN Reason: Pain Last Admin: 08/20/21 00:17 Dose: 650 mg Documented by: Albuterol/Ipratropium (Albuterol/Ipratropium 3.0-0.5 Mg/3 Ml Neb Soln) 3 ml NEB Q4HRRT PRN PRN Reason: sob/wheezing Last Admin: 08/20/21 20:34 Dose: 3 ml Documented by: Baricitinib (Baricitinib 2 Mg Tab) 4 mg PO DAILY [facility] Stop: 08/28/21 09:01 Last Admin: 08/20/21 08:25 Dose: 4 mg Documented by: Cholecalciferol (Cholecalciferol (Vitamin D3) 5,000 Unit Cap) 10,000 unit PO DAILY [facility] Last Admin: 08/20/21 08:25 Dose: 10,000 unit Documented by: Enoxaparin Sodium (Enoxaparin 100 Mg/1 Ml Syringe) 100 mg SUBCUT Q12H [facility] Last Admin: 08/20/21 20:05 Dose: 100 mg Documented by: Guaifenesin (Guaifenesin 600 Mg Tab.Er) 600 mg PO TID [facility] Last Admin: 08/20/21 20:05 Dose: 600 mg Documented by: Methylprednisolone Sodium Succinate (Methylprednisolone Sodium Succinate 125 Mg/2 Ml Sdv) 80 mg IVPUSH Q6H [facility] Last Admin: 08/21/21 04:50 Dose: 80 mg Documented by: Metoprolol Succinate (Metoprolol Succinate 50 Mg Tab.Er) 100 mg PO DAILY [facility] Last Admin: 08/20/21 08:24 Dose: 100 mg Documented by: Ondansetron HCl (Ondansetron 4 Mg/2 Ml Sdv) 4 mg IV Q6H PRN PRN Reason: Nausea/Vomiting Simvastatin (Simvastatin 40 Mg Tab) 40 mg PO DAILY [facility] Last Admin: 08/20/21 08:23 Dose: 40 mg Documented by: Sodium Chloride (Sodium Chloride 0.9% 10 Ml Syringe) 10 ml FLUSH ASDIRECTED PRN PRN Reason: Keep Vein Open Last Admin: 08/15/21 03:54 Dose: 10 ml Documented by: Sodium Chloride (Sodium Chloride 0.65% Nasal [place] 45 Ml Bottle) 0 ml THIAGO Q2H PRN PRN Reason: Nasal Dryness Last Admin: 08/19/21 15:09 Dose: 1 spr Documented by: Discontinued Medications Acetaminophen (Acetaminophen 325 Mg Tab) 975 mg PO NOW ONE Stop: 08/15/21 02:35 Last Admin: 08/15/21 02:42 Dose: 975 mg Documented by: Baricitinib (Baricitinib 2 Mg Tab) 4 mg PO DAILY [facility] Last Admin: 08/15/21 15:13 Dose: Not Given Documented by: Baricitinib (Baricitinib 2 Mg Tab) 2 mg PO DAILY [facility] Last Admin: 08/17/21 09:08 Dose: 2 mg Documented by: Dexamethasone (Dexamethasone 10 Mg/Ml Sdv) 8 mg IVPUSH ONETIME ONE Stop: 08/15/21 02:28 Last Admin: 08/15/21 02:42 Dose: 8 mg Documented by: Dexamethasone (Dexamethasone 4 Mg Tab) 6 mg PO DAILY [facility] Stop: 08/25/21 09:01 Last Admin: 08/16/21 09:45 Dose: 6 mg Documented by: Dexamethasone (Dexamethasone 4 Mg/Ml Sdv) 6 mg IVPUSH Q12H [facility] Last Admin: 08/17/21 09:08 Dose: 6 mg Documented by: Dexamethasone (Dexamethasone 10 Mg/Ml Sdv) 6 mg IVPUSH Q12H [facility] Last Admin: 08/18/21 08:35 Dose: 6 mg Documented by: Enoxaparin Sodium (Enoxaparin 40 Mg/0.4 Ml Syringe) 40 mg SUBCUT DAILY [facility] Last Admin: 08/16/21 09:45 Dose: 40 mg Documented by: Remdesivir 200 mg/ Sodium (Chloride) 250 mls @ 250 mls/hr IV ONETIME ONE Stop: 08/15/21 03:26 Last Admin: 08/15/21 02:45 Dose: 250 mls/hr Documented by: Sodium Chloride (Normal Saline) 100 mls @ 60 mls/min IV ASDIRECTED [facility] Last Admin: 08/15/21 03:54 Dose: 60 mls/min Documented by: Remdesivir 100 mg/ Sodium (Chloride) 100 mls @ 100 mls/hr IV Q24H [facility] Stop: 08/19/21 09:59 Last Admin: 08/19/21 09:52 Dose: 100 mls/hr Documented by: Ceftriaxone Sodium 2 gm/ (Sodium Chloride) 100 mls @ 200 mls/hr IV Q24H [facility] Stop: 08/20/21 10:59 Last Admin: 08/20/21 10:20 Dose: 200 mls/hr Documented by: Azithromycin 500 mg/ Sodium (Chloride) 250 mls @ 250 mls/hr IV Q24H [facility] Stop: 08/18/21 11:59 Last Admin: 08/18/21 11:27 Dose: 250 mls/hr Documented by: Influenza Virus Vaccine (Pharmacy To Dose - Influenza Vaccine) 1 each IM ON ETIME ONE Stop: 08/15/21 12:52 Influenza Virus Vaccine (Flu Vacc [id number] 36mos Up/Pf 60 Mcg/0.5 Ml Syringe) 60 mcg IM .ONCE ONE Stop: 08/15/21 13:01 Iopamidol (Iopamidol 755 Mg/Ml 100 Ml Bottle) 100 ml IVPUSH ONETIME ONE Stop: 08/15/21 03:18 Last Admin: 08/15/21 03:54 Dose: 100 ml Documented by: Losartan Potassium (Losartan 100 Mg Tab) 100 mg PO DAILY [facility] Methylprednisolone Sodium Succinate (Methylprednisolone Sodium Succinate 40 Mg/1 Ml Sdv) 80 mg IVPUSH Q6H [facility] Last Admin: 08/20/21 04:37 Dose: 80 mg Documented by: Metoprolol Succinate (Metoprolol Succinate 50 Mg Tab.Er) 50 mg PO DAILY [facility] Last Admin: 08/19/21 08:02 Dose: 50 mg Documented by: Metoprolol Succinate (Metoprolol Succinate 50 Mg Tab.Er) 50 mg PO ONETIME ONE Stop: 08/19/21 17:01 Last Admin: 08/19/21 16:56 Dose: 50 mg Documented by: Sodium Chloride (Sodium Chloride 0.9% 10 Ml Sdv) 10 ml FLUSH ONETIME ONE Stop: 08/15/21 03:18 Last Admin: 08/15/21 15:23 Dose: Not Given Documented by: - Exam Quality Assessment: Supplemental Oxygen General: Alert, No Acute Distress Neck: No JVD Lungs: Normal Respiratory Effort, Decreased Breath Sounds Cardiovascular: Regular Rate GI/Abdominal Exam: Normal Bowel Sounds, Soft, Non-Tender, Other (Morbidly obese) Extremities: Normal Inspection, No Pedal Edema Skin: Warm, Dry - Patient Data Lab Results Last 24 hrs: Laboratory Results - last 24 hr 08/21/21 08/21/21 08/21/21 Range/Units 04:47 04:47 04:47 WBC 12.67 H (4.23-9.07) K/mm3 RBC 5.21 (4.63-6.08) M/mm3 Hgb 13.9 (13.7-17.5) gm/dl Hct 41.5 (40.1-51.0) % MCV 79.7 (79.0-92.2) fl MCH 26.7 (25.7-32.2) pg MCHC 33.5 (32.2-35.5) g/dl RDW Std Deviation 40.2 (35.1-43.9) fL Plt Count 477 H (163-337) K/mm3 MPV 9.1 L (9.4-12.3) fl Neut % (Auto) 86.5 H (34.0-67.9) % Lymph % (Auto) 4.7 L (21.8-53.1) % Brooks % (Auto) 3.9 L (5.3-12.2) % Eos % (Auto) 0 L (0.8-7.0) Baso % (Auto) 0.2 (0.1-1.2) % Neut # (Auto) 10.97 H (1.78-5.38) K/mm3 Lymph # (Auto) 0.60 L (1.32-3.57) K/mm3 Brooks # (Auto) 0.49 (0.30-0.82) K/mm3 Eos # (Auto) 0.00 L (0.04-0.54) K/mm3 Baso # (Auto) 0.02 (0.01-0.08) K/mm3 D-Dimer, Quantitative 2.27 H (0.19-0.50) mg/L Sodium 139 (136-145) mEq/L Potassium 4.9 (3.5-5.1) mEq/L Chloride 104 (98-107) mEq/L Carbon Dioxide 25 (21-32) mEq/L Anion Gap 14.9 (5-15) BUN 27 H (7-18) mg/dL Creatinine 1.0 (0.7-1.3) mg/dL Est Cr Clr Drug Dosing 91.32 mL/min Estimated GFR (MDRD) > 60 (>60) mL/min BUN/Creatinine Ratio 27.0 H (14-18) Glucose 144 H (70-99) mg/dL Calcium 7.9 L (8.5-10.1) mg/dL Result Diagrams: 08/21/21 04:47 08/21/21 04:47 Sepsis Event Note - Evaluation Sepsis Screening Result: Possible Sepsis Risk - Focused Exam Vital Signs: Vital Signs Temp Pulse Resp BP Pulse Ox Pulse Ox Pulse Ox 08/21/21 03:45 97.5 F 74 19 149/90 H 92 L 08/21/21 00:00 97.3 F 76 20 149/105 H 93 L 08/20/21 23:25 92 L 08/20/21 20:34 91 L 08/20/21 20:00 97.3 F 71 24 H 146/108 H 89 L - Problem List Review Problem List Initiated/Reviewed/Updated: Yes - My Orders Last 24 Hours: My Active Orders 08/20/21 09:00 Metoprolol Succinate [Toprol XL] 100 mg PO DAILY 08/20/21 11:00 methylPREDNISolone Sod Succ [Solu-MEDROL] 80 mg IVPUSH Q6H 08/21/21 04:47 BASIC METABOLIC PANEL,BMP [CHEM] Routine CBC WITH AUTO DIFF [HEME] Routine FERRITIN [CHEM] Routine LACTATE DEHYDROGENASE,LDH [CHEM] Routine 08/21/21 06:00 Chest 1V Frontal [CR] Routine - Plan Plan:: 45-year-old obese male with hypertension presents to the emergency department with hypoxemia secondary to COVID-19 pneumonia. Oxygen saturations on arrival with EMS on 15 L nonrebreather was 81%. For detailed history up-to-date please see prior notes. 1. Acute hypoxemic respiratory failure in the setting of COVID-19 pneumoni a/pneumonitis. Status post monoclonal antibody, remdesivir, high-dose dexamethasone, now with transition to high-dose Solu-Medrol 80 mg every 6 hours. Requiring positive pressure support with BiPAP intermittently but now on high flow oxygen. Continue to prone as much as possible Titrate respiratory support as tolerated. RT consult. Continue high-dose steroids. Systemic anticoagulation dose due to increased D-dimers. These levels do continue to follow however. Vitamin C, zinc supplementation. Maintenance rest x-ray imaging in comparison to previous shows no significant change in disease. 2. History hypertension. Continue home medications of regular dose. Monitor volume and renal status. 3. Status post bioprosthetic aortic and mitral valve. Currently receiving systemic anticoagulation in the setting of COVID-19 inflammatory response. CODE STATUS: Full code. DVT prophylaxis with Lovenox 100 twice daily
[2021-08-21] MEDS: Enoxaparin 100 MG/1 ML Syringe SUBCUT SCH ×2 (07:43→19:59)
[2021-08-21] MEDS: Simvastatin 40 MG Tab PO SCH (07:59)
[2021-08-21] MEDS: Metoprolol Succinate 50 MG Tab.ER PO SCH (07:59)
[2021-08-21] MEDS: Cholecalciferol (Vitamin D3) 5,000 UNIT Cap PO SCH (07:59)
[2021-08-21] MEDS: guaiFENesin 600 MG Tab.ER PO SCH ×3 (07:59→20:00)
[2021-08-21] MEDS: Albuterol/Ipratropium 3.0-0.5 MG/3 ML Neb Soln NEB PRN ×3 (08:15→22:08)
--- NOTE | 2021-08-21 08:35 | CR ---
Chest: Portable view of the chest was obtained. Comparison: Prior chest x-ray of 08/18/21. Patchy increased density is seen within both sides of the chest, worse on the left side. Heart size is mildly enlarged. Tortuous thoracic aorta is seen. Sternotomy wires are present. Impression: 1. Increased density within both sides of the chest which remains fairly stable from prior chest x-ray. 2. Other findings as described above are also stable. Diagnostic code #3
[2021-08-21] MEDS: Acetaminophen 325 MG Tab PO PRN (19:57)
[2021-08-21] MEDS: Sodium Chloride 0.9% 10 ML Syringe FLUSH PRN (22:47)
[2021-08-22] MEDS: methylPREDNISolone Sodium Succinate 125 MG/2 ML SDV IVPUSH SCH ×4 (05:00→22:55)
[2021-08-22] MEDS: Albuterol/Ipratropium 3.0-0.5 MG/3 ML Neb Soln NEB PRN ×2 (07:53→16:47)
[2021-08-22] MEDS: Metoprolol Succinate 50 MG Tab.ER PO SCH (08:18)
[2021-08-22] MEDS: Simvastatin 40 MG Tab PO SCH (08:18)
[2021-08-22] MEDS: Enoxaparin 100 MG/1 ML Syringe SUBCUT SCH ×2 (08:18→20:33)
[2021-08-22] MEDS: Cholecalciferol (Vitamin D3) 5,000 UNIT Cap PO SCH (08:19)
[2021-08-22] MEDS: guaiFENesin 600 MG Tab.ER PO SCH ×3 (08:19→20:32)
--- NOTE | 2021-08-22 17:33 | PCM.PN ---
- General Info Date of Service: 08/22/21 Admission Dx/Problem (Free Text): Admission Diagnosis/Problem Admission Diagnosis/Problem Hypoxia Subjective Update: Patient does not have any new complaints. He still has a shortness of breath. But denies nausea, vomiting, diarrhea, headache, dizziness, or chest pain. He is on 6 L with the FiO2 100 No tachycardia Respiration rate around 20 - Review of Systems Systems Review Comment:: Positive for shortness of breath. All other systems were reviewed and negative. - Patient Data Vitals - Most Recent: Last Vital Signs Temp 36.3 C 08/22/21 11:26 Pulse 88 08/22/21 08:18 Resp 20 08/22/21 11:26 BP 144/78 H 08/22/21 11:26 Pulse Ox 90 L 08/22/21 16:48 Weight - Most Recent: 139.253 kg I&O - Last 24 Hours: Intake & Output 08/22/21 08/22/21 08/22/21 06:59 14:59 22:59 Intake Total 800 Output Total 775 Balance 25 Brenden Results Last 24 Hours: Microbiology 08/16/21 10:50 Blood Culture - Final Blood - Venous - Lab Draw 08/16/21 10:44 Blood Culture - Final Blood - Venous Med Orders - Current: Current Medications Acetaminophen (Acetaminophen 325 Mg Tab) 650 mg PO Q4H PRN PRN Reason: Pain Last Admin: 08/21/21 19:57 Dose: 650 mg Documented by: Albuterol/Ipratropium (Albuterol/Ipratropium 3.0-0.5 Mg/3 Ml Neb Soln) 3 ml NEB Q4HRRT PRN PRN Reason: sob/wheezing Last Admin: 08/22/21 16:47 Dose: 3 ml Documented by: Baricitinib (Baricitinib 2 Mg Tab) 4 mg PO DAILY [facility] Stop: 08/28/21 09:01 Last Admin: 08/22/21 08:18 Dose: 4 mg Documented by: Cholecalciferol (Cholecalciferol (Vitamin D3) 5,000 Unit Cap) 10,000 unit PO DAILY [facility] Last Admin: 08/22/21 08:19 Dose: 10,000 unit Documented by: Enoxaparin Sodium (Enoxaparin 100 Mg/1 Ml Syringe) 100 mg SUBCUT Q12H [facility] Last Admin: 08/22/21 08:18 Dose: 100 mg Documented by: Guaifenesin (Guaifenesin 600 Mg Tab.Er) 600 mg PO TID [facility] Last Admin: 08/22/21 14:07 Dose: 600 mg Documented by: Methylprednisolone Sodium Succinate (Methylprednisolone Sodium Succinate 125 Mg/2 Ml Sdv) 80 mg IVPUSH Q6H [facility] Last Admin: 08/22/21 11:21 Dose: 80 mg Documented by: Metoprolol Succinate (Metoprolol Succinate 50 Mg Tab.Er) 100 mg PO DAILY [facility] Last Admin: 08/22/21 08:18 Dose: 100 mg Documented by: Ondansetron HCl (Ondansetron 4 Mg/2 Ml Sdv) 4 mg IV Q6H PRN PRN Reason: Nausea/Vomiting Simvastatin (Simvastatin 40 Mg Tab) 40 mg PO DAILY [facility] Last Admin: 08/22/21 08:18 Dose: 40 mg Documented by: Sodium Chloride (Sodium Chloride 0.9% 10 Ml Syringe) 10 ml FLUSH ASDIRECTED PRN PRN Reason: Keep Vein Open Last Admin: 08/21/21 22:47 Dose: 10 ml Documented by: Sodium Chloride (Sodium Chloride 0.65% Nasal [place] 45 Ml Bottle) 0 ml THIAGO Q2H PRN PRN Reason: Nasal Dryness Last Admin: 08/19/21 15:09 Dose: 1 spr Documented by: Discontinued Medications Acetaminophen (Acetaminophen 325 Mg Tab) 975 mg PO NOW ONE Stop: 08/15/21 02:35 Last Admin: 08/15/21 02:42 Dose: 975 mg Documented by: Baricitinib (Baricitinib 2 Mg Tab) 4 mg PO DAILY [facility] Last Admin: 08/15/21 15:13 Dose: Not Given Documented by: Baricitinib (Baricitinib 2 Mg Tab) 2 mg PO DAILY [facility] Last Admin: 08/17/21 09:08 Dose: 2 mg Documented by: Dexamethasone (Dexamethasone 10 Mg/Ml Sdv) 8 mg IVPUSH ONETIME ONE Stop: 08/15/21 02:28 Last Admin: 08/15/21 02:42 Dose: 8 mg Documented by: Dexamethasone (Dexamethasone 4 Mg Tab) 6 mg PO DAILY [facility] Stop: 08/25/21 09:01 Last Admin: 08/16/21 09:45 Dose: 6 mg Documented by: Dexamethasone (Dexamethasone 4 Mg/Ml Sdv) 6 mg IVPUSH Q12H [facility] Last Admin: 08/17/21 09:08 Dose: 6 mg Documented by: Dexamethasone (Dexamethasone 10 Mg/Ml Sdv) 6 mg IVPUSH Q12H [facility] Last Admin: 08/18/21 08:35 Dose: 6 mg Documented by: Enoxaparin Sodium (Enoxaparin 40 Mg/0.4 Ml Syringe) 40 mg SUBCUT DAILY [facility] Last Admin: 08/16/21 09:45 Dose: 40 mg Documented by: Remdesivir 200 mg/ Sodium (Chloride) 250 mls @ 250 mls/hr IV ONETIME ONE Stop: 08/15/21 03:26 Last Admin: 08/15/21 02:45 Dose: 250 mls/hr Documented by: Sodium Chloride (Normal Saline) 100 mls @ 60 mls/min IV ASDIRECTED [facility] Last Admin: 08/15/21 03:54 Dose: 60 mls/min Documented by: Remdesivir 100 mg/ Sodium (Chloride) 100 mls @ 100 mls/hr IV Q24H [facility] Stop: 08/19/21 09:59 Last Admin: 08/19/21 09:52 Dose: 100 mls/hr Documented by: Ceftriaxone Sodium 2 gm/ (Sodium Chloride) 100 mls @ 200 mls/hr IV Q24H [facility] Stop: 08/20/21 10:59 Last Admin: 08/20/21 10:20 Dose: 200 mls/hr Documented by: Azithromycin 500 mg/ Sodium (Chloride) 250 mls @ 250 mls/hr IV Q24H [facility] Stop: 08/18/21 11:59 Last Admin: 08/18/21 11:27 Dose: 250 mls/hr Documented by: Influenza Virus Vaccine (Pharmacy To Dose - Influenza Vaccine) 1 each IM ONETIME ONE Stop: 08/15/21 12:52 Influenza Virus Vaccine (Flu Vacc [id number] 36mos Up/Pf 60 Mcg/0.5 Ml Syringe) 60 mcg IM .ONCE ONE Stop: 08/15/21 13:01 Iopamidol (Iopamidol 755 Mg/Ml 100 Ml Bottle) 100 ml IVPUSH ONETIME ONE Stop: 08/15/21 03:18 Last Admin: 08/15/21 03:54 Dose: 100 ml Documented by: Losartan Potassium (Losartan 100 Mg Tab) 100 mg PO DAILY [facility] Methylprednisolone Sodium Succinate (Methylprednisolone Sodium Succinate 40 Mg/1 Ml Sdv) 80 mg IVPUSH Q6H [facility] Last Admin: 08/20/21 04:37 Dose: 80 mg Documented by: Metoprolol Succinate (Metoprolol Succinate 50 Mg Tab.Er) 50 mg PO DAILY [facility] Last Admin: 08/19/21 08:02 Dose: 50 mg Documented by: Metoprolol Succinate (Metoprolol Succinate 50 Mg Tab.Er) 50 mg PO ONETIME ONE Stop: 08/19/21 17:01 Last Admin: 08/19/21 16:56 Dose: 50 mg Documented by: Sodium Chloride (Sodium Chloride 0.9% 10 Ml Sdv) 10 ml FLUSH ONETIME ONE Stop: 08/15/21 03:18 Last Admin: 08/15/21 15:23 Dose: Not Given Documented by: - Exam General: Alert, Oriented, Cooperative, No Acute Distress HEENT: Pupils Equal, Pupils Reactive, EOMI Neck: Supple, Trachea Midline, No JVD Lungs: Normal Respiratory Effort, Decreased Breath Sounds, Crackles GI/Abdominal Exam: Normal Bowel Sounds, Soft, Non-Tender, No Organomegaly Extremities: Normal Inspection, Normal Range of Motion, Non-Tender, No Pedal Edema Skin: Warm, Dry, Intact Neurological: No New Focal Deficit, Normal Speech, Normal Tone, Strength Equal Bilateral, Reflexes Equal Bilateral, Sensation Intact Psy/Mental Status: Alert, Normal Affect, Normal Mood - Patient Data Result Diagrams: 08/21/21 04:47 08/21/21 04:47 Brenden Results Last 24 hrs: Microbiology 08/16/21 10:50 Blood Culture - Final Blood - Venous - Lab Draw 08/16/21 10:44 Blood Culture - Final Blood - Venous Sepsis Event Note - Evaluation Sepsis Screening Result: Severe Sepsis Risk - Focused Exam Vital Signs: Vital Signs Temp Pulse Resp BP BP Pulse Ox Pulse Ox 08/22/21 16:48 90 L 08/22/21 11:26 36.3 C 20 144/78 H 93 L 08/22/21 09:19 97 08/22/21 08:18 88 142/97 H 08/22/21 08:00 36.2 C 22 H 142/97 H 90 L 08/22/21 07:53 91 L 08/22/21 06:00 95 - Problem List Review Problem List Initiated/Reviewed/Updated: Yes - My Orders Last 24 Hours: My Active Orders 08/23/21 05:11 COMPREHENSIVE METABOLIC PN,CMP [CHEM] AM CRP [C-REACTIVE PROTEIN] [CHEM] DAILY 08/23/21 05:30 CBC WITH AUTO DIFF [HEME] DAILY 08/24/21 05:11 COMPREHENSIVE METABOLIC PN,CMP [CHEM] AM CRP [C-REACTIVE PROTEIN] [CHEM] DAILY 08/24/21 05:30 CBC WITH AUTO DIFF [HEME] DAILY 08/25/21 05:11 COMPREHENSIVE METABOLIC PN,CMP [CHEM] AM CRP [C-REACTIVE PROTEIN] [CHEM] DAILY 08/25/21 05:30 CBC WITH AUTO DIFF [HEME] DAILY 08/26/21 05:11 COMPREHENSIVE METABOLIC PN,CMP [CHEM] AM CRP [C-REACTIVE PROTEIN] [CHEM] DAILY 08/26/21 05:30 CBC WITH AUTO DIFF [HEME] DAILY - Plan Plan:: 45-year-old obese male with hypertension presents to the emergency department with hypoxemia secondary to COVID-19 pneumonia. Oxygen saturations on arrival with EMS on 15 L nonrebreather was 81%. 1. Acute hypoxemic respiratory failure in the setting of COVID-19 pneumonia/pneumonitis. Continue baricitinib 4mg daily Completed remdesivir Solu-Medrol 80 mg every 6 hours. Lovenox 100mg bid Requiring positive pressure support with BiPAP intermittently but now on high flow oxygen. Keep SpO2 > 90% at all time Continue to prone as much as possible Titrate respiratory support as tolerated. RT consult. Continue high-dose steroids. Systemic anticoagulation dose due to increased D-dimers. These levels do continue to follow however. Vitamin C, zinc supplementation. Maintenance rest x-ray imaging in comparison to previous shows no significant change in disease. CBC, CMP and CRP daily 2. History hypertension. Continue home medications of regular dose. Monitor volume and renal status. 3. Status post bioprosthetic aortic and mitral valve. Currently receiving systemic anticoagulation in the setting of COVID-19 inflammatory response. CODE STATUS: Full code. DVT prophylaxis with Lovenox 100 twice daily Prognosis: guarded. updated to . Length of stay greater then 96 hours due to slow response to treatment
[2021-08-22] MEDS: Sodium Chloride 0.9% 10 ML Syringe FLUSH PRN (20:35)
[2021-08-23] MEDS: methylPREDNISolone Sodium Succinate 125 MG/2 ML SDV IVPUSH SCH ×4 (05:01→22:56)
[2021-08-23] MEDS: Cholecalciferol (Vitamin D3) 5,000 UNIT Cap PO SCH ×2 (07:55→08:33)
[2021-08-23] MEDS: Simvastatin 40 MG Tab PO SCH ×2 (07:55→08:33)
[2021-08-23] MEDS: Enoxaparin 100 MG/1 ML Syringe SUBCUT SCH ×2 (07:55→19:56)
[2021-08-23] MEDS: Metoprolol Succinate 50 MG Tab.ER PO SCH ×2 (07:56→08:33)
[2021-08-23] MEDS: guaiFENesin 600 MG Tab.ER PO SCH ×4 (07:56→20:01)
[2021-08-23] MEDS: Albuterol/Ipratropium 3.0-0.5 MG/3 ML Neb Soln NEB PRN ×2 (10:52→21:10)
--- NOTE | 2021-08-23 13:34 | PCM.PN ---
- General Info Date of Service: 08/23/21 Admission Dx/Problem (Free Text): Admission Diagnosis/Problem Admission Diagnosis/Problem Hypoxia Subjective Update: Patient does not have any new complaints. He still has a shortness of breath. But denies nausea, vomiting, diarrhea, headache, dizziness, or chest pain. He is on 60 L with the FiO2 100. BIPAP prn to keep SpO2 >90. will intubate him if needed. No tachycardia Respiration rate around 20 BP is not well controlled - Review of Systems Systems Review Comment:: Positive for shortness of breath. All other systems were reviewed and negative. - Patient Data Vitals - Most Recent: Last Vital Signs Temp 36.4 C 08/23/21 12:52 Pulse 88 08/23/21 07:56 Resp 22 H 08/23/21 12:52 BP 143/95 H 08/23/21 12:52 Pulse Ox 90 L 08/23/21 12:52 Weight - Most Recent: 137.302 kg I&O - Last 24 Hours: Intake & Output 08/22/21 08/23/21 08/23/21 22:59 06:59 14:59 Intake Total 975 800 Output Total 1150 900 Balance -175 -100 Lab Results Last 24 Hours: Laboratory Results - last 24 hr 08/23/21 08/23/21 Range/Units 06:00 06:00 WBC 13.80 H (4.23-9.07) K/mm3 RBC 4.74 (4.63-6.08) M/mm3 Hgb 12.8 L (13.7-17.5) gm/dl Hct 38.1 L (40.1-51.0) % MCV 80.4 (79.0-92.2) fl MCH 27.0 (25.7-32.2) pg MCHC 33.6 (32.2-35.5) g/dl RDW Std Deviation 40.5 (35.1-43.9) fL Plt Count 364 H D (163-337) K/mm3 MPV 9.0 L (9.4-12.3) fl Neut % (Auto) 92.2 H (34.0-67.9) % Lymph % (Auto) 3.3 L (21.8-53.1) % [place] % (Auto) 3.5 L (5.3-12.2) % Eos % (Auto) 0 L (0.8-7.0) Baso % (Auto) 0.1 (0.1-1.2) % Neut # (Auto) 12.73 H (1.78-5.38) K/mm3 Lymph # (Auto) 0.46 L (1.32-3.57) K/mm3 [place] # (Auto) 0.48 (0.30-0.82) K/mm3 Eos # (Auto) 0.00 L (0.04-0.54) K/mm3 Baso # (Auto) 0.01 (0.01-0.08) K/mm3 Manual Slide Review Abnormal smear Sodium 136 (136-145) mEq/L Potassium 4.7 (3.5-5.1) mEq/L Chloride 102 (98-107) mEq/L Carbon Dioxide 27 (21-32) mEq/L Anion Gap 11.7 (5-15) BUN 29 H (7-18) mg/dL Creatinine 0.9 (0.7-1.3) mg/dL Est Cr Clr Drug Dosing 101.47 mL/min Estimated GFR (MDRD) > 60 (>60) mL/min BUN/Creatinine Ratio 32.2 H (14-18) Glucose 150 H (70-99) mg/dL Calcium 7.6 L (8.5-10.1) mg/dL Total Bilirubin 0.4 (0.2-1.0) mg/dL AST 16 (15-37) U/L ALT 34 (16-63) U/L Alkaline Phosphatase 70 (46-116) U/L C-Reactive Protein <0.2 (<1.0) mg/dL Total Protein 5.2 L (6.4-8.2) g/dl Albumin 2.3 L (3.4-5.0) g/dl Globulin 2.9 gm/dL Albumin/Globulin Ratio 0.8 L (1-2) [facility]den Results Last 24 Hours: Microbiology 08/16/21 10:50 Blood Culture - Final Blood - Venous - Lab Draw 08/16/21 10:44 Blood Culture - Final Blood - Venous Med Orders - Current: Current Medications Acetaminophen (Acetaminophen 325 Mg Tab) 650 mg PO Q4H PRN PRN Reason: Pain Last Admin: 08/21/21 19:57 Dose: 650 mg Documented by: Albuterol/Ipratropium (Albuterol/Ipratropium 3.0-0.5 Mg/3 Ml Neb Soln) 3 ml NEB Q4HRRT PRN PRN Reason: sob/wheezing Last Admin: 08/23/21 10:52 Dose: 3 ml Documented by: Baricitinib (Baricitinib 2 Mg Tab) 4 mg PO DAILY [facility] Stop: 08/28/21 09:01 Last Admin: 08/23/21 08:33 Dose: Not Given Documented by: Cholecalciferol (Cholecalciferol (Vitamin D3) 5,000 Unit Cap) 10,000 unit PO DAILY [facility] Last Admin: 08/23/21 08:33 Dose: Not Given Documented by: Enoxaparin Sodium (Enoxaparin 100 Mg/1 Ml Syringe) 100 mg SUBCUT Q12H [facility] Last Admin: 08/23/21 07:55 Dose: 100 mg Documented by: Guaifenesin (Guaifenesin 600 Mg Tab.Er) 600 mg PO TID [facility] Last Admin: 08/23/21 08:32 Dose: Not Given Documented by: Methylprednisolone Sodium Succinate (Methylprednisolone Sodium Succinate 125 Mg/2 Ml Sdv) 80 mg IVPUSH Q6H [facility] Last Admin: 08/23/21 12:47 Dose: 80 mg Documented by: Metoprolol Succinate (Metoprolol Succinate 50 Mg Tab.Er) 100 mg PO DAILY [facility] Last Admin: 08/23/21 08:33 Dose: Not Given Documented by: Ondansetron HCl (Ondansetron 4 Mg/2 Ml Sdv) 4 mg IV Q6H PRN PRN Reason: Nausea/Vomiting Simvastatin (Simvastatin 40 Mg Tab) 40 mg PO DAILY [facility] Last Admin: 08/23/21 08:33 Dose: Not Given Documented by: Sodium Chloride (Sodium Chloride 0.9% 10 Ml Syringe) 10 ml FLUSH ASDIRECTED PRN PRN Reason: Keep Vein Open Last Admin: 08/22/21 20:35 Dose: 10 ml Documented by: Sodium Chloride (Sodium Chloride 0.65% Nasal [place] 45 Ml Bottle) 0 ml THIAGO Q2H PRN PRN Reason: Nasal Dryness Last Admin: 08/19/21 15:09 Dose: 1 spr Documented by: Discontinued Medications Acetaminophen (Acetaminophen 325 Mg Tab) 975 mg PO NOW ONE Stop: 08/15/21 02:35 Last Admin: 08/15/21 02:42 Dose: 975 mg Documented by: Baricitinib (Baricitinib 2 Mg Tab) 4 mg PO DAILY [facility] Last Admin: 08/15/21 15:13 Dose: Not Given Documented by: Baricitinib (Baricitinib 2 Mg Tab) 2 mg PO DAILY [facility] Last Admin: 08/17/21 09:08 Dose: 2 mg Documented by: Dexamethasone (Dexamethasone 10 Mg/Ml Sdv) 8 mg IVPUSH ONETIME ONE Stop: 08/15/21 02:28 Last Admin: 08/15/21 02:42 Dose: 8 mg Documented by: Dexamethasone (Dexamethasone 4 Mg Tab) 6 mg PO DAILY [facility] Stop: 08/25/21 09:01 Last Admin: 08/16/21 09:45 Dose: 6 mg Documented by: Dexamethasone (Dexamethasone 4 Mg/Ml Sdv) 6 mg IVPUSH Q12H [facility] Last Admin: 08/17/21 09:08 Dose: 6 mg Documented by: Dexamethasone (Dexamethasone 10 Mg/Ml Sdv) 6 mg IVPUSH Q12H [facility] Last Admin: 08/18/21 08:35 Dose: 6 mg Documented by: Enoxaparin Sodium (Enoxaparin 40 Mg/0.4 Ml Syringe) 40 mg SUBCUT DAILY [facility] Last Admin: 08/16/21 09:45 Dose: 40 mg Documented by: Remdesivir 200 mg/ Sodium (Chloride) 250 mls @ 250 mls/hr IV ONETIME ONE Stop: 08/15/21 03:26 Last Admin: 08/15/21 02:45 Dose: 250 mls/hr Documented by: Sodium Chloride (Normal Saline) 100 mls @ 60 mls/min IV ASDIRECTED [facility] Last Admin: 08/15/21 03:54 Dose: 60 mls/min Documented by: Remdesivir 100 mg/ Sodium (Chloride) 100 mls @ 100 mls/hr IV Q24H [facility] Stop: 08/19/21 09:59 Last Admin: 08/19/21 09:52 Dose: 100 mls/hr Documented by: Ceftriaxone Sodium 2 gm/ (Sodium Chloride) 100 mls @ 200 mls/hr IV Q24H [facility] Stop: 08/20/21 10:59 Last Admin: 08/20/21 10:20 Dose: 200 mls/hr Documented by: Azithromycin 500 mg/ Sodium (Chloride) 250 mls @ 250 mls/hr IV Q24H [facility] Stop: 08/18/21 11:59 Last Admin: 08/18/21 11:27 Dose: 250 mls/hr Documented by: Influenza Virus Vaccine (Pharmacy To Dose - Influenza Vaccine) 1 each IM ONETIME ONE Stop: 08/15/21 12:52 Influenza Virus Vaccine (Flu Vacc [id number] 36mos Up/Pf 60 Mcg/0.5 Ml Syringe) 60 mcg IM .ONCE ONE Stop: 08/15/21 13:01 Iopamidol (Iopamidol 755 Mg/Ml 100 Ml Bottle) 100 ml IVPUSH ONETIME ONE Stop: 08/15/21 03:18 Last Admin: 08/15/21 03:54 Dose: 100 ml Documented by: Losartan Potassium (Losartan 100 Mg Tab) 100 mg PO DAILY [facility] Methylprednisolone Sodium Succinate (Methylprednisolone Sodium Succinate 40 Mg/1 Ml Sdv) 80 mg IVPUSH Q6H [facility] Last Admin: 08/20/21 04:37 Dose: 80 mg Documented by: Metoprolol Succinate (Metoprolol Succinate 50 Mg Tab.Er) 50 mg PO DAILY [facility] Last Admin: 08/19/21 08:02 Dose: 50 mg Documented by: Metoprolol Succinate (Metoprolol Succinate 50 Mg Tab.Er) 50 mg PO ONETIME ONE Stop: 08/19/21 17:01 Last Admin: 08/19/21 16:56 Dose: 50 mg Documented by: Sodium Chloride (Sodium Chloride 0.9% 10 Ml Sdv) 10 ml FLUSH ONETIME ONE Stop: 08/15/21 03:18 Last Admin: 08/15/21 15:23 Dose: Not Given Documented by: - Exam Physical Findings Comments:: General: Alert, Oriented, Cooperative, No Acute Distress HEENT: Pupils Equal, Pupils Reactive, EOMI Neck: Supple, Trachea Midline, No JVD Lungs: Normal Respiratory Effort, Decreased Breath Sounds, Crackles GI/Abdominal Exam: Normal Bowel Sounds, Soft, Non-Tender, No Organomegaly Extremities: Normal Inspection, Normal Range of Motion, Non-Tender, No Pedal Edema Skin: Warm, Dry, Intact Neurological: No New Focal Deficit, Normal Speech, Normal Tone, Strength Equal Bilateral, Reflexes Equal Bilateral, Sensation Intact Psy/Mental Status: Alert, Normal Affect, Normal Mood - Patient Data Lab Results Last 24 hrs: Laboratory Results - last 24 hr 08/23/21 08/23/21 Range/Units 06:00 06:00 WBC 13.80 H (4.23-9.07) K/mm3 RBC 4.74 (4.63-6.08) M/mm3 Hgb 12.8 L (13.7-17.5) gm/dl Hct 38.1 L (40.1-51.0) % MCV 80.4 (79.0-92.2) fl MCH 27.0 (25.7-32.2) pg MCHC 33.6 (32.2-35.5) g/dl RDW Std Deviation 40.5 (35.1-43.9) fL Plt Count 364 H D (163-337) K/mm3 MPV 9.0 L (9.4-12.3) fl Neut % (Auto) 92.2 H (34.0-67.9) % Lymph % (Auto) 3.3 L (21.8-53.1) % [place] % (Auto) 3.5 L (5.3-12.2) % Eos % (Auto) 0 L (0.8-7.0) Baso % (Auto) 0.1 (0.1-1.2) % Neut # (Auto) 12.73 H (1.78-5.38) K/mm3 Lymph # (Auto) 0.46 L (1.32-3.57) K/mm3 [place] # (Auto) 0.48 (0.30-0.82) K/mm3 Eos # (Auto) 0.00 L (0.04-0.54) K/mm3 Baso # (Auto) 0.01 (0.01-0.08) K/mm3 Manual Slide Review Abnormal smear Sodium 136 (136-145) mEq/L Potassium 4.7 (3.5-5.1) mEq/L Chloride 102 (98-107) mEq/L Carbon Dioxide 27 (21-32) mEq/L Anion Gap 11.7 (5-15) BUN 29 H (7-18) mg/dL Creatinine 0.9 (0.7-1.3) mg/dL Est Cr Clr Drug Dosing 101.47 mL/min Estimated GFR (MDRD) > 60 (>60) mL/min BUN/Creatinine Ratio 32.2 H (14-18) Glucose 150 H (70-99) mg/dL Calcium 7.6 L (8.5-10.1) mg/dL Total Bilirubin 0.4 (0.2-1.0) mg/dL AST 16 (15-37) U/L ALT 34 (16-63) U/L Alkaline Phosphatase 70 (46-116) U/L C-Reactive Protein <0.2 (<1.0) mg/dL Total Protein 5.2 L (6.4-8.2) g/dl Albumin 2.3 L (3.4-5.0) g/dl Globulin 2.9 gm/dL Albumin/Globulin Ratio 0.8 L (1-2) Result Diagrams: 08/23/21 06:00 08/23/21 06:00 Brenden Results Last 24 hrs: Microbiology 08/16/21 10:50 Blood Culture - Final Blood - Venous - Lab Draw 08/16/21 10:44 Blood Culture - Final Blood - Venous Sepsis Event Note - Evaluation Sepsis Screening Result: Possible Sepsis Risk - Focused Exam Vital Signs: Vital Signs Temp Pulse Resp BP BP Pulse Ox Pulse Ox 08/23/21 12:52 36.4 C 22 H 143/95 H 90 L 08/23/21 10:52 91 L 08/23/21 08:00 36.4 C 20 96 08/23/21 07:56 88 161/97 H 08/23/21 06:00 96 08/23/21 05:00 93 L 08/23/21 04:00 36.6 C 18 136/81 94 L 08/23/21 02:00 95 - Problem List Review Problem List Initiated/Reviewed/Updated: Yes - My Orders Last 24 Hours: My Active Orders 08/24/21 05:11 COMPREHENSIVE METABOLIC PN,CMP [CHEM] AM CRP [C-REACTIVE PROTEIN] [CHEM] DAILY 08/24/21 05:30 CBC WITH AUTO DIFF [HEME] DAILY 08/25/21 05:11 COMPREHENSIVE METABOLIC PN,CMP [CHEM] AM CRP [C-REACTIVE PROTEIN] [CHEM] DAILY 08/25/21 05:30 CBC WITH AUTO DIFF [HEME] DAILY 08/26/21 05:11 COMPREHENSIVE METABOLIC PN,CMP [CHEM] AM CRP [C-REACTIVE PROTEIN] [CHEM] DAILY 08/26/21 05:30 CBC WITH AUTO DIFF [HEME] DAILY - Plan Plan:: 45-year-old obese male with hypertension presents to the emergency department with hypoxemia secondary to COVID-19 pneumonia. Oxygen saturations on arrival with EMS on 15 L nonrebreather was 81%. 1. Acute hypoxemic respiratory failure in the setting of COVID-19 pneumonia/pneumonitis. baricitinib 4mg daily Completed remdesivir Solu-Medrol 80 mg every 6 hours. Lovenox 100mg bid Requiring positive pressure support with BiPAP intermittently but now on high flow oxygen. Keep SpO2 > 90% at all time. Continue to prone as much as possible Titrate respiratory support as tolerated. RT consult. Vitamin C, zinc supplementation. Maintenance rest x-ray imaging in comparison to previous shows no significant change in disease. CRP < 0.2, will decrease steroid if possible. CBC, CMP and CRP daily 2. History hypertension. Continue home medications of regular dose. Monitor volume and renal status. 3. Status post bioprosthetic aortic and mitral valve. Currently receiving systemic anticoagulation in the setting of COVID-19 inflammatory response. 4. Morbid obesity BMI 44.7 Lifestyle modification f/u with pcp CODE STATUS: Full code. DVT prophylaxis with Lovenox 100 twice daily Prognosis: guarded. updated to . Length of stay greater then 96 hours due to slow response to treatment
[2021-08-23] MEDS: Pantoprazole 40 MG Tab.CR PO SCH (20:01)
[2021-08-24] MEDS: methylPREDNISolone Sodium Succinate 125 MG/2 ML SDV IVPUSH SCH ×4 (04:51→22:43)
[2021-08-24] MEDS: Enoxaparin 100 MG/1 ML Syringe SUBCUT SCH ×2 (07:54→20:04)
[2021-08-24] MEDS: guaiFENesin 600 MG Tab.ER PO SCH ×3 (08:01→20:04)
[2021-08-24] MEDS: Simvastatin 40 MG Tab PO SCH (08:01)
[2021-08-24] MEDS: Cholecalciferol (Vitamin D3) 5,000 UNIT Cap PO SCH (08:02)
[2021-08-24] MEDS: Metoprolol Succinate 50 MG Tab.ER PO SCH (08:02)
[2021-08-24] MEDS: Albuterol/Ipratropium 3.0-0.5 MG/3 ML Neb Soln NEB PRN ×2 (08:34→20:10)
[2021-08-24] MEDS ORDERED: hydrALAZINE 20 MG/ML SDV IVPUSH PRN (12:38)
--- NOTE | 2021-08-24 12:41 | PCM.PN ---
- General Info Date of Service: 08/24/21 Admission Dx/Problem (Free Text): Admission Diagnosis/Problem Admission Diagnosis/Problem Hypoxia Subjective Update: Patient does not have any new complaints. He still has a shortness of breath. But denies nausea, vomiting, diarrhea, headache, dizziness, or chest pain. He is on 60 L with the FiO2 100. Instructed RN and RT to keep SpO2 >90. will intubate him if needed. No tachycardia Respiration rate around 20 BP is not well controlled, amlodipine 2.5mg daily and hydralazine prn - Review of Systems Systems Review Comment:: Positive for shortness of breath. All other systems were reviewed and negative. - Patient Data Vitals - Most Recent: Last Vital Signs Temp 35.3 C L 08/24/21 07:53 Pulse 87 08/24/21 08:02 Resp 22 H 08/24/21 07:53 BP 165/90 H 08/24/21 08:02 Pulse Ox 88 L 08/24/21 08:33 Weight - Most Recent: 139.48 kg I&O - Last 24 Hours: Intake & Output 08/23/21 08/24/21 08/24/21 22:59 06:59 14:59 Intake Total 975 1100 Output Total 1275 520 650 Balance -300 580 -650 Lab Results Last 24 Hours: Laboratory Results - last 24 hr 08/24/21 08/24/21 Range/Units 05:05 05:05 WBC 14.49 H (4.23-9.07) K/mm3 RBC 4.49 L (4.63-6.08) M/mm3 Hgb 12.0 L (13.7-17.5) gm/dl Hct 36.6 L (40.1-51.0) % MCV 81.5 (79.0-92.2) fl MCH 26.7 (25.7-32.2) pg MCHC 32.8 (32.2-35.5) g/dl RDW Std Deviation 40.9 (35.1-43.9) fL Plt Count 329 (163-337) K/mm3 MPV 9.3 L (9.4-12.3) fl Neut % (Auto) 93.3 H (34.0-67.9) % Lymph % (Auto) 2.9 L (21.8-53.1) % [place] % (Auto) 3.0 L (5.3-12.2) % Eos % (Auto) 0 L (0.8-7.0) Baso % (Auto) 0.1 (0.1-1.2) % Neut # (Auto) 13.52 H (1.78-5.38) K/mm3 Lymph # (Auto) 0.42 L (1.32-3.57) K/mm3 [place] # (Auto) 0.44 (0.30-0.82) K/mm3 Eos # (Auto) 0.00 L (0.04-0.54) K/mm3 Baso # (Auto) 0.01 (0.01-0.08) K/mm3 Manual Slide Review Abnormal smear Sodium 137 (136-145) mEq/L Potassium 4.8 (3.5-5.1) mEq/L Chloride 105 (98-107) mEq/L Carbon Dioxide 24 (21-32) mEq/L Anion Gap 12.8 (5-15) BUN 37 H (7-18) mg/dL Creatinine 1.0 (0.7-1.3) mg/dL Est Cr Clr Drug Dosing 91.32 mL/min Estimated GFR (MDRD) > 60 (>60) mL/min BUN/Creatinine Ratio 37.0 H (14-18) Glucose 183 H (70-99) mg/dL Calcium 7.7 L (8.5-10.1) mg/dL Total Bilirubin 0.2 (0.2-1.0) mg/dL AST 14 L (15-37) U/L ALT 33 (16-63) U/L Alkaline Phosphatase 71 (46-116) U/L C-Reactive Protein <0.2 (<1.0) mg/dL Total Protein 5.0 L (6.4-8.2) g/dl Albumin 2.2 L (3.4-5.0) g/dl Globulin 2.8 gm/dL Albumin/Globulin Ratio 0.8 L (1-2) Med Orders - Current: Current Medications Acetaminophen (Acetaminophen 325 Mg Tab) 650 mg PO Q4H PRN PRN Reason: Pain Last Admin: 08/21/21 19:57 Dose: 650 mg Documented by: Albuterol/Ipratropium (Albuterol/Ipratropium 3.0-0.5 Mg/3 Ml Neb Soln) 3 ml NEB Q4HRRT PRN PRN Reason: sob/wheezing Last Admin: 08/24/21 08:34 Dose: 3 ml Documented by: Baricitinib (Baricitinib 2 Mg Tab) 4 mg PO DAILY [facility] Stop: 08/28/21 09:01 Last Admin: 08/24/21 08:02 Dose: 4 mg Documented by: Cholecalciferol (Cholecalciferol (Vitamin D3) 5,000 Unit Cap) 10,000 unit PO DAILY [facility] Last Admin: 08/24/21 08:02 Dose: 10,000 unit Documented by: Enoxaparin Sodium (Enoxaparin 100 Mg/1 Ml Syringe) 100 mg SUBCUT Q12H [facility] Last Admin: 08/24/21 07:54 Dose: 100 mg Documented by: Guaifenesin (Guaifenesin 600 Mg Tab.Er) 600 mg PO TID [facility] Last Admin: 08/24/21 08:01 Dose: 600 mg Documented by: Methylprednisolone Sodium Succinate (Methylprednisolone Sodium Succinate 125 Mg/2 Ml Sdv) 80 mg IVPUSH Q6H [facility] Last Admin: 08/24/21 11:06 Dose: 80 mg Documented by: Metoprolol Succinate (Metoprolol Succinate 50 Mg Tab.Er) 100 mg PO DAILY [facility] Last Admin: 08/24/21 08:02 Dose: 100 mg Documented by: Ondansetron HCl (Ondansetron 4 Mg/2 Ml Sdv) 4 mg IV Q6H PRN PRN Reason: Nausea/Vomiting Pantoprazole Sodium (Pantoprazole 40 Mg Tab.Cr) 40 mg PO BEDTIME [facility] Last Admin: 08/23/21 20:01 Dose: 40 mg Documented by: Simvastatin (Simvastatin 40 Mg Tab) 40 mg PO DAILY [facility] Last Admin: 08/24/21 08:01 Dose: 40 mg Documented by: Sodium Chloride (Sodium Chloride 0.9% 10 Ml Syringe) 10 ml FLUSH ASDIRECTED PRN PRN Reason: Keep Vein Open Last Admin: 08/22/21 20:35 Dose: 10 ml Documented by: Sodium Chloride (Sodium Chloride 0.65% Nasal [place] 45 Ml Bottle) 0 ml THIAGO Q2H PRN PRN Reason: Nasal Dryness Last Admin: 08/19/21 15:09 Dose: 1 spr Documented by: Discontinued Medications Acetaminophen (Acetaminophen 325 Mg Tab) 975 mg PO NOW ONE Stop: 08/15/21 02:35 Last Admin: 08/15/21 02:42 Dose: 975 mg Documented by: Baricitinib (Baricitinib 2 Mg Tab) 4 mg PO DAILY [facility] Last Admin: 08/15/21 15:13 Dose: Not Given Documented by: Baricitinib (Baricitinib 2 Mg Tab) 2 mg PO DAILY [facility] Last Admin: 08/17/21 09:08 Dose: 2 mg Documented by: Dexamethasone (Dexamethasone 10 Mg/Ml Sdv) 8 mg IVPUSH ONETIME ONE Stop: 08/15/21 02:28 Last Admin: 08/15/21 02:42 Dose: 8 mg Documented by: Dexamethasone (Dexamethasone 4 Mg Tab) 6 mg PO DAILY [facility] Stop: 08/25/21 09:01 Last Admin: 08/16/21 09:45 Dose: 6 mg Documented by: Dexamethasone (Dexamethasone 4 Mg/Ml Sdv) 6 mg IVPUSH Q12H [facility] Last Admin: 08/17/21 09:08 Dose: 6 mg Documented by: Dexamethasone (Dexamethasone 10 Mg/Ml Sdv) 6 mg IVPUSH Q12H [facility] Last Admin: 08/18/21 08:35 Dose: 6 mg Documented by: Enoxaparin Sodium (Enoxaparin 40 Mg/0.4 Ml Syringe) 40 mg SUBCUT DAILY [facility] Last Admin: 08/16/21 09:45 Dose: 40 mg Documented by: Remdesivir 200 mg/ Sodium (Chloride) 250 mls @ 250 mls/hr IV ONETIME ONE Stop: 08/15/21 03:26 Last Admin: 08/15/21 02:45 Dose: 250 mls/hr Documented by: Sodium Chloride (Normal Saline) 100 mls @ 60 mls/min IV ASDIRECTED [facility] Last Admin: 08/15/21 03:54 Dose: 60 mls/min Documented by: Remdesivir 100 mg/ Sodium (Chloride) 100 mls @ 100 mls/hr IV Q24H [facility] Stop: 08/19/21 09:59 Last Admin: 08/19/21 09:52 Dose: 100 mls/hr Documented by: Ceftriaxone Sodium 2 gm/ (Sodium Chloride) 100 mls @ 200 mls/hr IV Q24H [facility] Stop: 08/20/21 10:59 Last Admin: 08/20/21 10:20 Dose: 200 mls/hr Documented by: Azithromycin 500 mg/ Sodium (Chloride) 250 mls @ 250 mls/hr IV Q24H [facility] Stop: 08/18/21 11:59 Last Admin: 08/18/21 11:27 Dose: 250 mls/hr Documented by: Influenza Virus Vaccine (Pharmacy To Dose - Influenza Vaccine) 1 each IM ONETIME ONE Stop: 08/15/21 12:52 Influenza Virus Vaccine (Flu Vacc [id number] 36mos Up/Pf 60 Mcg/0.5 Ml Syringe) 60 mcg IM .ONCE ONE Stop: 08/15/21 13:01 Iopamidol (Iopamidol 755 Mg/Ml 100 Ml Bottle) 100 ml IVPUSH ONETIME ONE Stop: 08/15/21 03:18 Last Admin: 08/15/21 03:54 Dose: 100 ml Documented by: Losartan Potassium (Losartan 100 Mg Tab) 100 mg PO DAILY [facility] Methylprednisolone Sodium Succinate (Methylprednisolone Sodium Succinate 40 Mg/1 Ml Sdv) 80 mg IVPUSH Q6H [facility] Last Admin: 08/20/21 04:37 Dose: 80 mg Documented by: Metoprolol Succinate (Metoprolol Succinate 50 Mg Tab.Er) 50 mg PO DAILY [facility] Last Admin: 08/19/21 08:02 Dose: 50 mg Documented by: Metoprolol Succinate (Metoprolol Succinate 50 Mg Tab.Er) 50 mg PO ONETIME ONE Stop: 08/19/21 17:01 Last Admin: 08/19/21 16:56 Dose: 50 mg Documented by: Sodium Chloride (Sodium Chloride 0.9% 10 Ml Sdv) 10 ml FLUSH ONETIME ONE Stop: 08/15/21 03:18 Last Admin: 08/15/21 15:23 Dose: Not Given Documented by: - Exam Physical Findings Comments:: General: Alert, Oriented, Cooperative, No Acute Distress HEENT: Pupils Equal, Pupils Reactive, EOMI Neck: Supple, Trachea Midline, No JVD Lungs: Normal Respiratory Effort, Decreased Breath Sounds, Crackles b/l GI/Abdominal Exam: Normal Bowel Sounds, Soft, Non-Tender, No Organomegaly Extremities: Normal Inspection, Normal Range of Motion, Non-Tender, No Pedal Edema Skin: Warm, Dry, Intact Neurological: No New Focal Deficit, Normal Speech, Normal Tone, Strength Equal Bilateral, Reflexes Equal Bilateral, Sensation Intact Psy/Mental Status: Alert, Normal Affect, Normal Mood - Patient Data Lab Results Last 24 hrs: Laboratory Results - last 24 hr 08/24/21 08/24/21 Range/Units 05:05 05:05 WBC 14.49 H (4.23-9.07) K/mm3 RBC 4.49 L (4.63-6.08) M/mm3 Hgb 12.0 L (13.7-17.5) gm/dl Hct 36.6 L (40.1-51.0) % MCV 81.5 (79.0-92.2) fl MCH 26.7 (25.7-32.2) pg MCHC 32.8 (32.2-35.5) g/dl RDW Std Deviation 40.9 (35.1-43.9) fL Plt Count 329 (163-337) K/mm3 MPV 9.3 L (9.4-12.3) fl Neut % (Auto) 93.3 H (34.0-67.9) % Lymph % (Auto) 2.9 L (21.8-53.1) % [place] % (Auto) 3.0 L (5.3-12.2) % Eos % (Auto) 0 L (0.8-7.0) Baso % (Auto) 0.1 (0.1-1.2) % Neut # (Auto) 13.52 H (1.78-5.38) K/mm3 Lymph # (Auto) 0.42 L (1.32-3.57) K/mm3 [place] # (Auto) 0.44 (0.30-0.82) K/mm3 Eos # (Auto) 0.00 L (0.04-0.54) K/mm3 Baso # (Auto) 0.01 (0.01-0.08) K/mm3 Manual Slide Review Abnormal smear Sodium 137 (136-145) mEq/L Potassium 4.8 (3.5-5.1) mEq/L Chloride 105 (98-107) mEq/L Carbon Dioxide 24 (21-32) mEq/L Anion Gap 12.8 (5-15) BUN 37 H (7-18) mg/dL Creatinine 1.0 (0.7-1.3) mg/dL Est Cr Clr Drug Dosing 91.32 mL/min Estimated GFR (MDRD) > 60 (>60) mL/min BUN/Creatinine Ratio 37.0 H (14-18) Glucose 183 H (70-99) mg/dL Calcium 7.7 L (8.5-10.1) mg/dL Total Bilirubin 0.2 (0.2-1.0) mg/dL AST 14 L (15-37) U/L ALT 33 (16-63) U/L Alkaline Phosphatase 71 (46-116) U/L C-Reactive Protein <0.2 (<1.0) mg/dL Total Protein 5.0 L (6.4-8.2) g/dl Albumin 2.2 L (3.4-5.0) g/dl Globulin 2.8 gm/dL Albumin/Globulin Ratio 0.8 L (1-2) Result Diagrams: 08/24/21 05:05 08/24/21 05:05 Sepsis Event Note - Evaluation Sepsis Screening Result: Possible Sepsis Risk - Focused Exam Vital Signs: Vital Signs Temp Pulse Resp BP BP Pulse Ox Pulse Ox 08/24/21 08:33 88 L 08/24/21 08:02 87 165/90 H 08/24/21 07:53 35.3 C L 22 H 165/90 H 90 L 08/24/21 05:15 90 L 08/24/21 04:00 36.6 C 24 H 149/82 H 91 L - Problem List Review Problem List Initiated/Reviewed/Updated: Yes - My Orders Last 24 Hours: My Active Orders 08/23/21 21:00 Pantoprazole [ProTONIX] 40 mg PO BEDTIME 08/25/21 05:11 COMPREHENSIVE METABOLIC PN,CMP [CHEM] AM CRP [C-REACTIVE PROTEIN] [CHEM] DAILY 08/25/21 05:30 CBC WITH AUTO DIFF [HEME] DAILY 08/26/21 05:11 COMPREHENSIVE METABOLIC PN,CMP [CHEM] AM CRP [C-REACTIVE PROTEIN] [CHEM] DAILY 08/26/21 05:30 CBC WITH AUTO DIFF [HEME] DAILY - Plan Plan:: 45-year-old obese male with hypertension presents to the emergency department with hypoxemia secondary to COVID-19 pneumonia. Oxygen saturations on arrival with EMS on 15 L nonrebreather was 81%. 1. Acute hypoxemic respiratory failure in the setting of COVID-19 pneumonia/pneumonitis. Continue baricitinib 4mg daily Completed remdesivir Solu-Medrol 80 mg every 6 hours. Lovenox 100mg bid Do whatever to Keep SpO2 > 90% at all time. Continue to prone RT consult. Vitamin C, zinc supplementation. CRP < 0.2, will decrease steroid if possible. CBC, CMP and CRP daily 2. History hypertension. Not well controlled Continue metoprolol 100mg daily Added amlodipine 2.5mg and hydralazine prn 3. Status post bioprosthetic aortic and mitral valve. Currently receiving systemic anticoagulation in the setting of COVID-19 infla mmatory response. 4. Morbid obesity BMI 44.7 Lifestyle modification f/u with pcp CODE STATUS: Full code. DVT prophylaxis with Lovenox 100 twice daily Prognosis: guarded. updated to . Length of stay greater then 96 hours due to slow response to treatment
[2021-08-24] MEDS: amLODIPine 2.5 MG Tab PO SCH (14:37)
[2021-08-24] MEDS: Pantoprazole 40 MG Tab.CR PO SCH (20:04)
[2021-08-25] MEDS: methylPREDNISolone Sodium Succinate 125 MG/2 ML SDV IVPUSH SCH ×4 (04:29→22:38)
[2021-08-25] MEDS: Enoxaparin 100 MG/1 ML Syringe SUBCUT SCH ×2 (07:53→20:24)
[2021-08-25] MEDS: amLODIPine 2.5 MG Tab PO SCH (08:07)
[2021-08-25] MEDS: Cholecalciferol (Vitamin D3) 5,000 UNIT Cap PO SCH (08:08)
[2021-08-25] MEDS: guaiFENesin 600 MG Tab.ER PO SCH ×3 (08:08→20:23)
[2021-08-25] MEDS: Metoprolol Succinate 50 MG Tab.ER PO SCH (08:08)
[2021-08-25] MEDS: Simvastatin 40 MG Tab PO SCH (08:08)
--- NOTE | 2021-08-25 09:56 | PCM.SN.2 ---
- Free Text/Narrative Note: RN and I met pt in his room this morning. I explained the CPR and intubation at length to him who agreed to have both CPR and intubation when his heart stops. However, he does not want to have intubation when he is conscious. All questions were answered.
--- NOTE | 2021-08-25 09:58 | PCM.PN ---
- General Info Date of Service: 08/25/21 Admission Dx/Problem (Free Text): Admission Diagnosis/Problem Admission Diagnosis/Problem Hypoxia Subjective Update: He has shortness of breath. He has tachycardia and tachypnea. But denies nausea, vomiting, diarrhea, headache, dizziness, or chest pain. He is on 60 L with the FiO2 100. Instructed RN and RT to keep SpO2 >90% at all time. Discussed the code status with him. he agreed to have both CPR and intubation when his heart stops. However, he does not want to be intubated when he is conscious. His BP is still not well controlled. increased amlodipine to 5mg daily - Review of Systems Systems Review Comment:: Positive for shortness of breath. All other systems were reviewed and negative. - Patient Data Vitals - Most Recent: Last Vital Signs Temp 35.5 C L 08/25/21 08:00 Pulse 122 H 08/25/21 08:08 Resp 24 H 08/25/21 08:00 BP 151/104 H 08/25/21 08:08 Pulse Ox 81 L 08/25/21 08:00 Weight - Most Recent: 138.89 kg I&O - Last 24 Hours: Intake & Output 08/24/21 08/25/21 08/25/21 22:59 06:59 14:59 Intake Total 800 650 Output Total 1050 450 Balance -250 200 Lab Results Last 24 Hours: Laboratory Results - last 24 hr 08/25/21 08/25/21 08/25/21 Range/Units 04:58 04:58 08:09 WBC 18.55 H (4.23-9.07) K/mm3 RBC 3.68 L (4.63-6.08) M/mm3 Hgb 9.9 L D (13.7-17.5) gm/dl Hct 30.3 L (40.1-51.0) % MCV 82.3 (79.0-92.2) fl MCH 26.9 (25.7-32.2) pg MCHC 32.7 (32.2-35.5) g/dl RDW Std Deviation 41.6 (35.1-43.9) fL Plt Count 278 (163-337) K/mm3 MPV 9.5 (9.4-12.3) fl Neut % (Auto) 94.1 H (34.0-67.9) % Lymph % (Auto) 2.7 L (21.8-53.1) % [place] % (Auto) 2.6 L (5.3-12.2) % Eos % (Auto) 0 L (0.8-7.0) Baso % (Auto) 0.1 (0.1-1.2) % Neut # (Auto) 17.45 H (1.78-5.38) K/mm3 Lymph # (Auto) 0.50 L (1.32-3.57) K/mm3 [place] # (Auto) 0.49 (0.30-0.82) K/mm3 Eos # (Auto) 0.00 L (0.04-0.54) K/mm3 Baso # (Auto) 0.01 (0.01-0.08) K/mm3 Manual Slide Review Abnormal smear Sodium 138 (136-145) mEq/L Potassium 5.0 (3.5-5.1) mEq/L Chloride 107 (98-107) mEq/L Carbon Dioxide 23 (21-32) mEq/L Anion Gap 13.0 (5-15) BUN 46 H (7-18) mg/dL Creatinine 1.0 (0.7-1.3) mg/dL Est Cr Clr Drug Dosing 91.32 mL/min Estimated GFR (MDRD) > 60 (>60) mL/min BUN/Creatinine Ratio 46.0 H (14-18) Glucose 164 H (70-99) mg/dL POC Glucose 163 H (70-99) mg/dL Calcium 7.7 L (8.5-10.1) mg/dL Total Bilirubin 0.3 (0.2-1.0) mg/dL AST 12 L (15-37) U/L ALT 24 (16-63) U/L Alkaline Phosphatase 57 (46-116) U/L C-Reactive Protein <0.2 (<1.0) mg/dL Total Protein 4.4 L (6.4-8.2) g/dl Albumin 2.1 L (3.4-5.0) g/dl Globulin 2.3 gm/dL Albumin/Globulin Ratio 0.9 L (1-2) Med Orders - Current: Current Medications Acetaminophen (Acetaminophen 325 Mg Tab) 650 mg PO Q4H PRN PRN Reason: Pain Last Admin: 08/21/21 19:57 Dose: 650 mg Documented by: Albuterol/Ipratropium (Albuterol/Ipratropium 3.0-0.5 Mg/3 Ml Neb Soln) 3 ml NEB Q4HRRT PRN PRN Reason: sob/wheezing Last Admin: 08/24/21 20:10 Dose: 3 ml Documented by: Amlodipine Besylate (Amlodipine 2.5 Mg Tab) 2.5 mg PO DAILY [facility] Last Admin: 08/25/21 08:07 Dose: 2.5 mg Documented by: Baricitinib (Baricitinib 2 Mg Tab) 4 mg PO DAILY [facility] Stop: 08/28/21 09:01 Last Admin: 08/25/21 08:07 Dose: 4 mg Documented by: Cholecalciferol (Cholecalciferol (Vitamin D3) 5,000 Unit Cap) 10,000 unit PO DAILY [facility] Last Admin: 08/25/21 08:08 Dose: 10,000 unit Documented by: Enoxaparin Sodium (Enoxaparin 100 Mg/1 Ml Syringe) 100 mg SUBCUT Q12H [facility] Last Admin: 08/25/21 07:53 Dose: 100 mg Documented by: Guaifenesin (Guaifenesin 600 Mg Tab.Er) 600 mg PO TID [facility] Last Admin: 08/25/21 08:08 Dose: 600 mg Documented by: Hydralazine HCl (Hydralazine 20 Mg/Ml Sdv) 10 mg IVPUSH Q4H PRN PRN Reason: Hypertension Insulin Human Lispro (Insulin Lispro 100 Unit/Ml 3 Ml Kwikpen) 0 unit SUBCUT QIDACANDBED [facility]; Protocol Methylprednisolone Sodium Succinate (Methylprednisolone Sodium Succinate 125 Mg/2 Ml Sdv) 80 mg IVPUSH Q6H [facility] Last Admin: 08/25/21 04:29 Dose: 80 mg Documented by: Metoprolol Succinate (Metoprolol Succinate 50 Mg Tab.Er) 100 mg PO DAILY [facility] Last Admin: 08/25/21 08:08 Dose: 100 mg Documented by: Ondansetron HCl (Ondansetron 4 Mg/2 Ml Sdv) 4 mg IV Q6H PRN PRN Reason: Nausea/Vomiting Pantoprazole Sodium (Pantoprazole 40 Mg Tab.Cr) 40 mg PO BEDTIME [facility] Last Admin: 08/24/21 20:04 Dose: 40 mg Documented by: Simvastatin (Simvastatin 40 Mg Tab) 40 mg PO DAILY [facility] Last Admin: 08/25/21 08:08 Dose: 40 mg Documented by: Sodium Chloride (Sodium Chloride 0.9% 10 Ml Syringe) 10 ml FLUSH ASDIRECTED PRN PRN Reason: Keep Vein Open Last Admin: 08/22/21 20:35 Dose: 10 ml Documented by: Sodium Chloride (Sodium Chloride 0.65% Nasal [place] 45 Ml Bottle) 0 ml THIAGO Q2H PRN PRN Reason: Nasal Dryness Last Admin: 08/19/21 15:09 Dose: 1 spr Documented by: Discontinued Medications Acetaminophen (Acetaminophen 325 Mg Tab) 975 mg PO NOW ONE Stop: 08/15/21 02:35 Last Admin: 08/15/21 02:42 Dose: 975 mg Documented by: Baricitinib (Baricitinib 2 Mg Tab) 4 mg PO DAILY [facility] Last Admin: 08/15/21 15:13 Dose: Not Given Documented by: Baricitinib (Baricitinib 2 Mg Tab) 2 mg PO DAILY [facility] Last Admin: 08/17/21 09:08 Dose: 2 mg Documented by: Dexamethasone (Dexamethasone 10 Mg/Ml Sdv) 8 mg IVPUSH ONETIME ONE Stop: 08/15/21 02:28 Last Admin: 08/15/21 02:42 Dose: 8 mg Documented by: Dexamethasone (Dexamethasone 4 Mg Tab) 6 mg PO DAILY [facility] Stop: 08/25/21 09:01 Last Admin: 08/16/21 09:45 Dose: 6 mg Documented by: Dexamethasone (Dexamethasone 4 Mg/Ml Sdv) 6 mg IVPUSH Q12H [facility] Last Admin: 08/17/21 09:08 Dose: 6 mg Documented by: Dexamethasone (Dexamethasone 10 Mg/Ml Sdv) 6 mg IVPUSH Q12H [facility] Last Admin: 08/18/21 08:35 Dose: 6 mg Documented by: Enoxaparin Sodium (Enoxaparin 40 Mg/0.4 Ml Syringe) 40 mg SUBCUT DAILY [facility] Last Admin: 08/16/21 09:45 Dose: 40 mg Documented by: Remdesivir 200 mg/ Sodium (Chloride) 250 mls @ 250 mls/hr IV ONETIME ONE Stop: 08/15/21 03:26 Last Admin: 08/15/21 02:45 Dose: 250 mls/hr Documented by: Sodium Chloride (Normal Saline) 100 mls @ 60 mls/min IV ASDIRECTED [facility] Last Admin: 08/15/21 03:54 Dose: 60 mls/min Documented by: Remdesivir 100 mg/ Sodium (Chloride) 100 mls @ 100 mls/hr IV Q24H [facility] Stop: 08/19/21 09:59 Last Admin: 08/19/21 09:52 Dose: 100 mls/hr Documented by: Ceftriaxone Sodium 2 gm/ (Sodium Chloride) 100 mls @ 200 mls/hr IV Q24H [facility] Stop: 08/20/21 10:59 Last Admin: 08/20/21 10:20 Dose: 200 mls/hr Documented by: Azithromycin 500 mg/ Sodium (Chloride) 250 mls @ 250 mls/hr IV Q24H [facility] Stop: 08/18/21 11:59 Last Admin: 08/18/21 11:27 Dose: 250 mls/hr Documented by: Influenza Virus Vaccine (Pharmacy To Dose - Influenza Vaccine) 1 each IM ONETIME ONE Stop: 08/15/21 12:52 Influenza Virus Vaccine (Flu Vacc [id number] 36mos Up/Pf 60 Mcg/0.5 Ml Syringe) 60 mcg IM .ONCE ONE Stop: 08/15/21 13:01 Iopamidol (Iopamidol 755 Mg/Ml 100 Ml Bottle) 100 ml IVPUSH ONETIME ONE Stop: 08/15/21 03:18 Last Admin: 08/15/21 03:54 Dose: 100 ml Documented by: Losartan Potassium (Losartan 100 Mg Tab) 100 mg PO DAILY [facility] Methylprednisolone Sodium Succinate (Methylprednisolone Sodium Succinate 40 Mg/1 Ml Sdv) 80 mg IVPUSH Q6H [facility] Last Admin: 08/20/21 04:37 Dose: 80 mg Documented by: Metoprolol Succinate (Metoprolol Succinate 50 Mg Tab.Er) 50 mg PO DAILY [facility] Last Admin: 08/19/21 08:02 Dose: 50 mg Documented by: Metoprolol Succinate (Metoprolol Succinate 50 Mg Tab.Er) 50 mg PO ONETIME ONE Stop: 08/19/21 17:01 Last Admin: 08/19/21 16:56 Dose: 50 mg Documented by: Sodium Chloride (Sodium Chloride 0.9% 10 Ml Sdv) 10 ml FLUSH ONETIME ONE Stop: 08/15/21 03:18 Last Admin: 08/15/21 15:23 Dose: Not Given Documented by: - Exam Physical Findings Comments:: General: Alert, Oriented, Cooperative, No Acute Distress HEENT: Pupils Equal, Pupils Reactive, EOMI Neck: Supple, Trachea Midline, No JVD Lungs: Normal Respiratory Effort, Decreased Breath Sounds, Crackles b/l GI/Abdominal Exam: Normal Bowel Sounds, Soft, Non-Tender, No Organomegaly Extremities: Normal Inspection, Normal Range of Motion, Non-Tender, No Pedal Edema Skin: Warm, Dry, Intact Neurological: No New Focal Deficit, Normal Speech, Normal Tone, Strength Equal Bilateral, Reflexes Equal Bilateral, Sensation Intact Psy/Mental Status: Alert, Normal Affect, Normal Mood - Patient Data Lab Results Last 24 hrs: Laboratory Results - last 24 hr 08/25/21 08/25/21 08/25/21 Range/Units 04:58 04:58 08:09 WBC 18.55 H (4.23-9.07) K/mm3 RBC 3.68 L (4.63-6.08) M/mm3 Hgb 9.9 L D (13.7-17.5) gm/dl Hct 30.3 L (40.1-51.0) % MCV 82.3 (79.0-92.2) fl MCH 26.9 (25.7-32.2) pg MCHC 32.7 (32.2-35.5) g/dl RDW Std Deviation 41.6 (35.1-43.9) fL Plt Count 278 (163-337) K/mm3 MPV 9.5 (9.4-12.3) fl Neut % (Auto) 94.1 H (34.0-67.9) % Lymph % (Auto) 2.7 L (21.8-53.1) % [place] % (Auto) 2.6 L (5.3-12.2) % Eos % (Auto) 0 L (0.8-7.0) Baso % (Auto) 0.1 (0.1-1.2) % Neut # (Auto) 17.45 H (1.78-5.38) K/mm3 Lymph # (Auto) 0.50 L (1.32-3.57) K/mm3 [place] # (Auto) 0.49 (0.30-0.82) K/mm3 Eos # (Auto) 0.00 L (0.04-0.54) K/mm3 Baso # (Auto) 0.01 (0.01-0.08) K/mm3 Manual Slide Review Abnormal smear Sodium 138 (136-145) mEq/L Potassium 5.0 (3.5-5.1) mEq/L Chloride 107 (98-107) mEq/L Carbon Dioxide 23 (21-32) mEq/L Anion Gap 13.0 (5-15) BUN 46 H (7-18) mg/dL Creatinine 1.0 (0.7-1.3) mg/dL Est Cr Clr Drug Dosing 91.32 mL/min Estimated GFR (MDRD) > 60 (>60) mL/min BUN/Creatinine Ratio 46.0 H (14-18) Glucose 164 H (70-99) mg/dL POC Glucose 163 H (70-99) mg/dL Calcium 7.7 L (8.5-10.1) mg/dL Total Bilirubin 0.3 (0.2-1.0) mg/dL AST 12 L (15-37) U/L ALT 24 (16-63) U/L Alkaline Phosphatase 57 (46-116) U/L C-Reactive Protein <0.2 (<1.0) mg/dL Total Protein 4.4 L (6.4-8.2) g/dl Albumin 2.1 L (3.4-5.0) g/dl Globulin 2.3 gm/dL Albumin/Globulin Ratio 0.9 L (1-2) Result Diagrams: 08/25/21 04:58 08/25/21 04:58 Sepsis Event Note - Evaluation Sepsis Screening Result: Possible Sepsis Risk - Focused Exam Vital Signs: Vital Signs Temp Pulse Pulse Resp BP BP BP 08/25/21 08:08 122 H 151/104 H 08/25/21 08:07 151/104 H 08/25/21 08:00 35.5 C L 24 H 151/104 H 08/25/21 04:35 36.2 C 79 16 142/68 H 08/24/21 23:08 08/24/21 22:58 36.2 C 97 22 H 134/91 H Pulse Ox Pulse Ox 08/25/21 08:08 08/25/21 08:07 08/25/21 08:00 81 L 08/25/21 04:35 96 08/24/21 23:08 89 L 08/24/21 22:58 90 L - Problem List Review Problem List Initiated/Reviewed/Updated: Yes - My Orders Last 24 Hours: My Active Orders 08/24/21 12:38 hydrALAZINE [Apresoline] 10 mg IVPUSH Q4H PRN 08/24/21 12:45 amLODIPine [Norvasc] 2.5 mg PO DAILY 08/25/21 08:28 POC Glucose [Blood Glucose Check, Bedside] [RC] QIDACANDBED 08/25/21 11:00 Insulin Lispro [HumaLOG] See Protocol SUBCUT QIDACANDBED 08/26/21 05:11 COMPREHENSIVE METABOLIC PN,CMP [CHEM] AM CRP [C-REACTIVE PROTEIN] [CHEM] DAILY 08/26/21 05:30 CBC WITH AUTO DIFF [HEME] DAILY - Plan Plan:: 45-year-old obese male with hypertension presents to the emergency department with hypoxemia secondary to COVID-19 pneumonia. Oxygen saturations on arrival with EMS on 15 L nonrebreather was 81%. 1. Acute hypoxemic respiratory failure in the setting of COVID-19 pn eumonia/pneumonitis. Continue baricitinib 4mg daily Completed remdesivir Solu-Medrol 80 mg every 6 hours. Lovenox 100mg bid Keep SpO2 > 90% at all time. Continue to prone RT consult. Vitamin C, zinc supplementation. CBC, CMP and CRP daily 2. Hypertension. Not well controlled Continue metoprolol 100mg daily increased amlodipine to 5mg and hydralazine prn 3. Status post bioprosthetic aortic and mitral valve. Currently receiving systemic anticoagulation in the setting of COVID-19 inflammatory response. 4. Morbid obesity BMI 45.2 Lifestyle modification f/u with pcp CODE STATUS: agreed to have both CPR and intubation when his heart stops beating. However, he does not want to be intubated when he is conscious. DVT prophylaxis with Lovenox 100 twice daily Prognosis: guarded. updated to . Length of stay greater then 96 hours due to slow response to treatment
[2021-08-25] MEDS ORDERED: amLODIPine 5 MG Tab PO ONE (10:15)
[2021-08-25] MEDS: Albuterol/Ipratropium 3.0-0.5 MG/3 ML Neb Soln NEB PRN ×3 (10:26→21:06)
[2021-08-25] MEDS: Insulin Lispro 100 Unit/ML 3 ML KwikPen SUBCUT SCH ×3 (12:02→21:14)
[2021-08-25] MEDS: Acetaminophen 325 MG Tab PO PRN (20:23)
[2021-08-25] MEDS: Pantoprazole 40 MG Tab.CR PO SCH (20:24)
[2021-08-25] MEDS: Metoprolol Tartrate 5 MG/5 ML SDV IVPUSH PRN ×2 (21:07→22:36)
[2021-08-26] MEDS: Metoprolol Tartrate 5 MG/5 ML SDV IVPUSH PRN ×5 (00:38→07:25)
[2021-08-26] MEDS: Acetaminophen 325 MG Tab PO PRN (00:38)
[2021-08-26] MEDS: methylPREDNISolone Sodium Succinate 125 MG/2 ML SDV IVPUSH SCH ×2 (04:29→10:25)
--- NOTE | 2021-08-26 05:49 | CR ---
Chest: Portable view of the chest was obtained. Comparison: Prior chest x-ray of 08/21/21. Patchy increased density is seen on both sides of the chest. Findings are fairly stable from prior chest x-ray. Sternotomy is noted. Heart size and mediastinum are stable. Impression: 1. Patchy increased density on both sides of the chest. Please correlate if patient is positive for COVID etiology. Findings are stable from prior chest x-ray. Diagnostic code #3 I agree with preliminary report from [facility], finalized on 08/25/21, 10:50 PM [employer], code 1
[2021-08-26] MEDS: Enoxaparin 100 MG/1 ML Syringe SUBCUT SCH (08:14)
[2021-08-26] MEDS: Simvastatin 40 MG Tab PO SCH (08:25)
[2021-08-26] MEDS: guaiFENesin 600 MG Tab.ER PO SCH (08:25)
[2021-08-26] MEDS: Cholecalciferol (Vitamin D3) 5,000 UNIT Cap PO SCH (08:26)
[2021-08-26] MEDS: Insulin Lispro 100 Unit/ML 3 ML KwikPen SUBCUT SCH ×2 (08:38→10:35)
[2021-08-26] MEDS: Albuterol/Ipratropium 3.0-0.5 MG/3 ML Neb Soln NEB PRN (08:51)
[2021-08-26] MEDS: Metoprolol Succinate 50 MG Tab.ER PO SCH (08:56)
[2021-08-26] MEDS ORDERED: amLODIPine 5 MG Tab PO SCH (09:00)
[2021-08-26] MEDS ORDERED: Digoxin 500 MCG/2 ML Amp IVPUSH ONE (09:53)
[2021-08-26] MEDS ORDERED: Sodium Chloride 0.9% 1,000 ML IV SCH (10:00)
--- NOTE | 2021-08-26 10:25 | PCM.PN ---
- General Info Date of Service: 08/26/21 Admission Dx/Problem (Free Text): Admission Diagnosis/Problem Admission Diagnosis/Problem Hypoxia Subjective Update: Generally speaking, his condition deteriorated. Pt feels the same. Denies nausea, vomiting, diarrhea, headache, dizziness, or chest pain. He is now on BIPAPA. Instructed RN and RT to keep SpO2 >90% at all time. He has tachycardia and tachypnea. His BP is soft. amlodipine to 5mg daily is on hold Hb 7.7 but Quaiac test negative His creatinine came up to 2.0 today. It was 1.0 yesterday Potassium 5.7 Troponin 0.081, BNP 3975 Discussed the code status with him again today. he agreed to have both CPR and i ntubation when becomes unconscious. However, he does not want to be intubated when he is conscious. - Review of Systems Systems Review Comment:: Positive for shortness of breath. All other systems were reviewed and negative. - Patient Data Vitals - Most Recent: Last Vital Signs Temp 36.6 C 08/26/21 08:00 Pulse 115 H 08/26/21 08:00 Resp 26 H 08/26/21 04:31 BP 88/68 L 08/26/21 08:00 Pulse Ox 100 08/26/21 08:52 Weight - Most Recent: 134.717 kg I&O - Last 24 Hours: Intake & Output 08/25/21 08/26/21 08/26/21 22:59 06:59 14:59 Intake Total 730 1400 Output Total 850 1150 240 Balance -120 250 -240 Lab Results Last 24 Hours: Laboratory Results - last 24 hr 08/25/21 08/25/21 08/25/21 Range/Units 12:00 16:01 21:13 WBC (4.23-9.07) K/mm3 RBC (4.63-6.08) M/mm3 Hgb (13.7-17.5) gm/dl Hct (40.1-51.0) % MCV (79.0-92.2) fl MCH (25.7-32.2) pg MCHC (32.2-35.5) g/dl RDW Std Deviation (35.1-43.9) fL Plt Count (163-337) K/mm3 MPV (9.4-12.3) fl Neut % (Auto) (34.0-67.9) % Lymph % (Auto) (21.8-53.1) % [place] % (Auto) (5.3-12.2) % Eos % (Auto) (0.8-7.0) Baso % (Auto) (0.1-1.2) % Neut # (Auto) (1.78-5.38) K/mm3 Lymph # (Auto) (1.32-3.57) K/mm3 [place] # (Auto) (0.30-0.82) K/mm3 Eos # (Auto) (0.04-0.54) K/mm3 Baso # (Auto) (0.01-0.08) K/mm3 Sodium (136-145) mEq/L Potassium (3.5-5.1) mEq/L Chloride (98-107) mEq/L Carbon Dioxide (21-32) mEq/L Anion Gap (5-15) BUN (7-18) mg/dL Creatinine (0.7-1.3) mg/dL Est Cr Clr Drug Dosing mL/min Estimated GFR (MDRD) (>60) mL/min BUN/Creatinine Ratio (14-18) Glucose (70-99) mg/dL POC Glucose 164 H 221 H 183 H (70-99) mg/dL Calcium (8.5-10.1) mg/dL Total Bilirubin (0.2-1.0) mg/dL AST (15-37) U/L ALT (16-63) U/L Alkaline Phosphatase (46-116) U/L Troponin I (0.00-0.056) ng/mL C-Reactive Protein (<1.0) mg/dL NT-Pro-B Natriuret Pep (0-125) pg/mL Total Protein (6.4-8.2) g/dl Albumin (3.4-5.0) g/dl Globulin gm/dL Albumin/Globulin Ratio (1-2) 08/26/21 08/26/21 08/26/21 Range/Units 06:27 07:10 07:10 WBC 31.32 H (4.23-9.07) K/mm3 RBC 2.84 L (4.63-6.08) M/mm3 Hgb 7.7 L D (13.7-17.5) gm/dl Hct 23.6 L (40.1-51.0) % MCV 83.1 (79.0-92.2) fl MCH 27.1 (25.7-32.2) pg MCHC 32.6 (32.2-35.5) g/dl RDW Std Deviation 41.6 (35.1-43.9) fL Plt Count 288 (163-337) K/mm3 MPV 10.2 (9.4-12.3) fl Neut % (Auto) 92.4 H (34.0-67.9) % Lymph % (Auto) 3.3 L (21.8-53.1) % [place] % (Auto) 3.5 L (5.3-12.2) % Eos % (Auto) 0 L (0.8-7.0) Baso % (Auto) 0.1 (0.1-1.2) % Neut # (Auto) 28.95 H (1.78-5.38) K/mm3 Lymph # (Auto) 1.02 L (1.32-3.57) K/mm3 [place] # (Auto) 1.10 H (0.30-0.82) K/mm3 Eos # (Auto) 0.00 L (0.04-0.54) K/mm3 Baso # (Auto) 0.02 (0.01-0.08) K/mm3 Sodium 137 (136-145) mEq/L Potassium 5.4 H (3.5-5.1) mEq/L Chloride 105 (98-107) mEq/L Carbon Dioxide 19 L (21-32) mEq/L Anion Gap 18.4 H (5-15) BUN 84 H D (7-18) mg/dL Creatinine 1.8 H (0.7-1.3) mg/dL Est Cr Clr Drug Dosing 50.73 mL/min Estimated GFR (MDRD) 41 (>60) mL/min BUN/Creatinine Ratio 46.7 H (14-18) Glucose 277 H (70-99) mg/dL POC Glucose 243 H (70-99) mg/dL Calcium 7.6 L (8.5-10.1) mg/dL Total Bilirubin 0.3 (0.2-1.0) mg/dL AST 15 (15-37) U/L ALT 22 (16-63) U/L Alkaline Phosphatase 52 (46-116) U/L Troponin I (0.00-0.056) ng/mL C-Reactive Protein <0.2 (<1.0) mg/dL NT-Pro-B Natriuret Pep (0-125) pg/mL Total Protein 4.7 L (6.4-8.2) g/dl Albumin 2.0 L (3.4-5.0) g/dl Globulin 2.7 gm/dL Albumin/Globulin Ratio 0.7 L (1-2) 08/26/21 08/26/21 08/26/21 Range/Units 07:10 07:10 09:37 WBC 32.86 H (4.23-9.07) K/mm3 RBC 2.84 L (4.63-6.08) M/mm3 Hgb 7.7 L (13.7-17.5) gm/dl Hct 23.5 L (40.1-51.0) % MCV 82.7 (79.0-92.2) fl MCH 27.1 (25.7-32.2) pg MCHC 32.8 (32.2-35.5) g/dl RDW Std Deviation 41.9 (35.1-43.9) fL Plt Count 291 (163-337) K/mm3 MPV 10.2 (9.4-12.3) fl Neut % (Auto) 93.0 H (34.0-67.9) % Lymph % (Auto) 2.6 L (21.8-53.1) % [place] % (Auto) 3.7 L (5.3-12.2) % Eos % (Auto) 0 L (0.8-7.0) Baso % (Auto) 0.1 (0.1-1.2) % Neut # (Auto) 30.58 H (1.78-5.38) K/mm3 Lymph # (Auto) 0.85 L (1.32-3.57) K/mm3 [place] # (Auto) 1.20 H (0.30-0.82) K/mm3 Eos # (Auto) 0.00 L (0.04-0.54) K/mm3 Baso # (Auto) 0.02 (0.01-0.08) K/mm3 Sodium (136-145) mEq/L Potassium (3.5-5.1) mEq/L Chloride (98-107) mEq/L Carbon Dioxide (21-32) mEq/L Anion Gap (5-15) BUN (7-18) mg/dL Creatinine (0.7-1.3) mg/dL Est Cr Clr Drug Dosing mL/min Estimated GFR (MDRD) (>60) mL/min BUN/Creatinine Ratio (14-18) Glucose (70-99) mg/dL POC Glucose (70-99) mg/dL Calcium (8.5-10.1) mg/dL Total Bilirubin (0.2-1.0) mg/dL AST (15-37) U/L ALT (16-63) U/L Alkaline Phosphatase (46-116) U/L Troponin I 0.081 H* (0.00-0.056) ng/mL C-Reactive Protein (<1.0) mg/dL NT-Pro-B Natriuret Pep 3975 H (0-125) pg/mL Total Protein (6.4-8.2) g/dl Albumin (3.4-5.0) g/dl Globulin gm/dL Albumin/Globulin Ratio (1-2) Med Orders - Current: Current Medications Acetaminophen (Acetaminophen 325 Mg Tab) 650 mg PO Q4H PRN PRN Reason: Pain Last Admin: 08/26/21 00:38 Dose: 650 mg Documented by: Albuterol/Ipratropium (Albuterol/Ipratropium 3.0-0.5 Mg/3 Ml Neb Soln) 3 ml NEB Q4HRRT PRN PRN Reason: sob/wheezing Last Admin: 08/26/21 08:51 Dose: 3 ml Documented by: Amlodipine Besylate (Amlodipine 5 Mg Tab) 5 mg PO DAILY [facility] Last Admin: 08/26/21 08:57 Dose: Not Given Documented by: Baricitinib (Baricitinib 2 Mg Tab) 4 mg PO DAILY [facility] Stop: 08/28/21 09:01 Last Admin: 08/26/21 08:37 Dose: 4 mg Documented by: Cholecalciferol (Cholecalciferol (Vitamin D3) 5,000 Unit Cap) 10,000 unit PO DAILY [facility] Last Admin: 08/26/21 08:26 Dose: 10,000 unit Documented by: Enoxaparin Sodium (Enoxaparin 100 Mg/1 Ml Syringe) 100 mg SUBCUT Q12H [facility] Last Admin: 08/26/21 08:14 Dose: 100 mg Documented by: Guaifenesin (Guaifenesin 600 Mg Tab.Er) 600 mg PO TID [facility] Last Admin: 08/26/21 08:25 Dose: 600 mg Documented by: Hydralazine HCl (Hydralazine 20 Mg/Ml Sdv) 10 mg IVPUSH Q4H PRN PRN Reason: Hypertension Sodium Chloride (Normal Saline) 1,000 mls @ 150 mls/hr IV ASDIRECTED [facility] Insulin Human Lispro (Insulin Lispro 100 Unit/Ml 3 Ml Kwikpen) 0 unit SUBCUT QIDACANDBED [facility]; Protocol Last Admin: 08/26/21 08:38 Dose: 2 unit Documented by: Methylprednisolone Sodium Succinate (Methylprednisolone Sodium Succinate 125 Mg/2 Ml Sdv) 80 mg IVPUSH Q6H [facility] Last Admin: 08/26/21 04:29 Dose: 80 mg Documented by: Metoprolol Succinate (Metoprolol Succinate 50 Mg Tab.Er) 100 mg PO DAILY [facility] Last Admin: 08/26/21 08:56 Dose: Not Given Documented by: Metoprolol Tartrate (Metoprolol Tartrate 5 Mg/5 Ml Sdv) 2.5 mg IVPUSH Q10M PRN PRN Reason: Tachycardia Last Admin: 08/26/21 07:25 Dose: 2.5 mg Documented by: Ondansetron HCl (Ondansetron 4 Mg/2 Ml Sdv) 4 mg IV Q6H PRN PRN Reason: Nausea/Vomiting Pantoprazole Sodium (Pantoprazole 40 Mg Tab.Cr) 40 mg PO BEDTIME [facility] Last Admin: 08/25/21 20:24 Dose: 40 mg Documented by: Simvastatin (Simvastatin 40 Mg Tab) 40 mg PO DAILY [facility] Last Admin: 08/26/21 08:25 Dose: 40 mg Documented by: Sodium Chloride (Sodium Chloride 0.9% 10 Ml Syringe) 10 ml FLUSH ASDIRECTED PRN PRN Reason: Keep Vein Open Last Admin: 08/22/21 20:35 Dose: 10 ml Documented by: Sodium Chloride (Sodium Chloride 0.65% Nasal [place] 45 Ml Bottle) 0 ml THIAGO Q2H PRN PRN Reason: Nasal Dryness Last Admin: 08/19/21 15:09 Dose: 1 spr Documented by: Discontinued Medications Acetaminophen (Acetaminophen 325 Mg Tab) 975 mg PO NOW ONE Stop: 08/15/21 02:35 Last Admin: 08/15/21 02:42 Dose: 975 mg Documented by: Amlodipine Besylate (Amlodipine 2.5 Mg Tab) 2.5 mg PO DAILY [facility] Last Admin: 08/25/21 08:07 Dose: 2.5 mg Documented by: Amlodipine Besylate (Amlodipine 5 Mg Tab) 2.5 mg PO ONETIME ONE Stop: 08/25/21 10:16 Last Admin: 08/25/21 11:59 Dose: 2.5 mg Documented by: Baricitinib (Baricitinib 2 Mg Tab) 4 mg PO DAILY [facility] Last Admin: 08/15/21 15:13 Dose: Not Given Documented by: Baricitinib (Baricitinib 2 Mg Tab) 2 mg PO DAILY [facility] Last Admin: 08/17/21 09:08 Dose: 2 mg Documented by: Dexamethasone (Dexamethasone 10 Mg/Ml Sdv) 8 mg IVPUSH ONETIME ONE Stop: 08/15/21 02:28 Last Admin: 08/15/21 02:42 Dose: 8 mg Documented by: Dexamethasone (Dexamethasone 4 Mg Tab) 6 mg PO DAILY [facility] Stop: 08/25/21 09:01 Last Admin: 08/16/21 09:45 Dose: 6 mg Documented by: Dexamethasone (Dexamethasone 4 Mg/Ml Sdv) 6 mg IVPUSH Q12H [facility] Last Admin: 08/17/21 09:08 Dose: 6 mg Documented by: Dexamethasone (Dexamethasone 10 Mg/Ml Sdv) 6 mg IVPUSH Q12H [facility] Last Admin: 08/18/21 08:35 Dose: 6 mg Documented by: Digoxin (Digoxin 500 Mcg/2 Ml Amp) 125 mcg IVPUSH ONETIME ONE Stop: 08/26/21 09:54 Enoxaparin Sodium (Enoxaparin 40 Mg/0.4 Ml Syringe) 40 mg SUBCUT DAILY [facility] Last Admin: 08/16/21 09:45 Dose: 40 mg Documented by: Remdesivir 200 mg/ Sodium (Chloride) 250 mls @ 250 mls/hr IV ONETIME ONE Stop: 08/15/21 03:26 Last Admin: 08/15/21 02:45 Dose: 250 mls/hr Documented by: Sodium Chloride (Normal Saline) 100 mls @ 60 mls/min IV ASDIRECTED [facility] Last Admin: 08/15/21 03:54 Dose: 60 mls/min Documented by: Remdesivir 100 mg/ Sodium (Chloride) 100 mls @ 100 mls/hr IV Q24H [facility] Stop: 08/19/21 09:59 Last Admin: 08/19/21 09:52 Dose: 100 mls/hr Documented by: Ceftriaxone Sodium 2 gm/ (Sodium Chloride) 100 mls @ 200 mls/hr IV Q24H [facility] Stop: 08/20/21 10:59 Last Admin: 08/20/21 10:20 Dose: 200 mls/hr Documented by: Azithromycin 500 mg/ Sodium (Chloride) 250 mls @ 250 mls/hr IV Q24H [facility] Stop: 08/18/21 11:59 Last Admin: 08/18/21 11:27 Dose: 250 mls/hr Documented by: Influenza Virus Vaccine (Pharmacy To Dose - Influenza Vaccine) 1 each IM ONETIME ONE Stop: 08/15/21 12:52 Influenza Virus Vaccine (Flu Vacc [id number] 36mos Up/Pf 60 Mcg/0.5 Ml Syringe) 60 mcg IM .ONCE ONE Stop: 08/15/21 13:01 Iopamidol (Iopamidol 755 Mg/Ml 100 Ml Bottle) 100 ml IVPUSH ONETIME ONE Stop: 08/15/21 03:18 Last Admin: 08/15/21 03:54 Dose: 100 ml Documented by: Losartan Potassium (Losartan 100 Mg Tab) 100 mg PO DAILY [facility] Methylprednisolone Sodium Succinate (Methylprednisolone Sodium Succinate 40 Mg/1 Ml Sdv) 80 mg IVPUSH Q6H [facility] Last Admin: 08/20/21 04:37 Dose: 80 mg Documented by: Metoprolol Succinate (Metoprolol Succinate 50 Mg Tab.Er) 50 mg PO DAILY [facility] Last Admin: 08/19/21 08:02 Dose: 50 mg Documented by: Metoprolol Succinate (Metoprolol Succinate 50 Mg Tab.Er) 50 mg PO ONETIME ONE Stop: 08/19/21 17:01 Last Admin: 08/19/21 16:56 Dose: 50 mg Documented by: Metoprolol Tartrate (Metoprolol Tartrate 5 Mg/5 Ml Sdv) 2.5 mg IVPUSH Q10M PRN PRN Reason: Tachycardia Last Admin: 08/26/21 04:37 Dose: 2.5 mg Documented by: Sodium Chloride (Sodium Chloride 0.9% 10 Ml Sdv) 10 ml FLUSH ONETIME ONE Stop: 08/15/21 03:18 Last Admin: 08/15/21 15:23 Dose: Not Given Documented by: - Exam Urinary Catheter Total Time: 0Days 11Hours Physical Findings Comments:: General: Alert, Oriented, Cooperative, No Acute Distress. He is now on Bipap HEENT: Pupils Equal, Pupils Reactive, EOMI Neck: Supple, Trachea Midline, No JVD Lungs: Normal Respiratory Effort, Decreased Breath Sounds, Crackles b/l GI/Abdominal Exam: Normal Bowel Sounds, Soft, Non-Tender, No Organomegaly Extremities: Normal Inspection, Normal Range of Motion, Non-Tender, No Pedal Edema Skin: Warm, Dry, Intact Neurological: No New Focal Deficit, Normal Speech, Normal Tone, Strength Equal Bilateral, Reflexes Equal Bilateral, Sensation Intact Psy/Mental Status: Alert, Normal Affect, Normal Mood - Patient Data Lab Results Last 24 hrs: Laboratory Results - last 24 hr 08/25/21 08/25/21 08/25/21 Range/Units 12:00 16:01 21:13 WBC (4.23-9.07) K/mm3 RBC (4.63-6.08) M/mm3 Hgb (13.7-17.5) gm/dl Hct (40.1-51.0) % MCV (79.0-92.2) fl MCH (25.7-32.2) pg MCHC (32.2-35.5) g/dl RDW Std Deviation (35.1-43.9) fL Plt Count (163-337) K/mm3 MPV (9.4-12.3) fl Neut % (Auto) (34.0-67.9) % Lymph % (Auto) (21.8-53.1) % [place] % (Auto) (5.3-12.2) % Eos % (Auto) (0.8-7.0) Baso % (Auto) (0.1-1.2) % Neut # (Auto) (1.78-5.38) K/mm3 Lymph # (Auto) (1.32-3.57) K/mm3 [place] # (Auto) (0.30-0.82) K/mm3 Eos # (Auto) (0.04-0.54) K/mm3 Baso # (Auto) (0.01-0.08) K/mm3 Sodium (136-145) mEq/L Potassium (3.5-5.1) mEq/L Chloride (98-107) mEq/L Carbon Dioxide (21-32) mEq/L Anion Gap (5-15) BUN (7-18) mg/dL Creatinine (0.7-1.3) mg/dL Est Cr Clr Drug Dosing mL/min Estimated GFR (MDRD) (>60) mL/min BUN/Creatinine Ratio (14-18) Glucose (70-99) mg/dL POC Glucose 164 H 221 H 183 H (70-99) mg/dL Calcium (8.5-10.1) mg/dL Total Bilirubin (0.2-1.0) mg/dL AST (15-37) U/L ALT (16-63) U/L Alkaline Phosphatase (46-116) U/L Troponin I (0.00-0.056) ng/mL C-Reactive Protein (<1.0) mg/dL NT-Pro-B Natriuret Pep (0-125) pg/mL Total Protein (6.4-8.2) g/dl Albumin (3.4-5.0) g/dl Globulin gm/dL Albumin/Globulin Ratio (1-2) 08/26/21 08/26/21 08/26/21 Range/Units 06:27 07:10 07:10 WBC 31.32 H (4.23-9.07) K/mm3 RBC 2.84 L (4.63-6.08) M/mm3 Hgb 7.7 L D (13.7-17.5) gm/dl Hct 23.6 L (40.1-51.0) % MCV 83.1 (79.0-92.2) fl MCH 27.1 (25.7-32.2) pg MCHC 32.6 (32.2-35.5) g/dl RDW Std Deviation 41.6 (35.1-43.9) fL Plt Count 288 (163-337) K/mm3 MPV 10.2 (9.4-12.3) fl Neut % (Auto) 92.4 H (34.0-67.9) % Lymph % (Auto) 3.3 L (21.8-53.1) % [place] % (Auto) 3.5 L (5.3-12.2) % Eos % (Auto) 0 L (0.8-7.0) Baso % (Auto) 0.1 (0.1-1.2) % Neut # (Auto) 28.95 H (1.78-5.38) K/mm3 Lymph # (Auto) 1.02 L (1.32-3.57) K/mm3 [place] # (Auto) 1.10 H (0.30-0.82) K/mm3 Eos # (Auto) 0.00 L (0.04-0.54) K/mm3 Baso # (Auto) 0.02 (0.01-0.08) K/mm3 Sodium 137 (136-145) mEq/L Potassium 5.4 H (3.5-5.1) mEq/L Chloride 105 (98-107) mEq/L Carbon Dioxide 19 L (21-32) mEq/L Anion Gap 18.4 H (5-15) BUN 84 H D (7-18) mg/dL Creatinine 1.8 H (0.7-1.3) mg/dL Est Cr Clr Drug Dosing 50.73 mL/min Estimated GFR (MDRD) 41 (>60) mL/min BUN/Creatinine Ratio 46.7 H (14-18) Glucose 277 H (70-99) mg/dL POC Glucose 243 H (70-99) mg/dL Calcium 7.6 L (8.5-10.1) mg/dL Total Bilirubin 0.3 (0.2-1.0) mg/dL AST 15 (15-37) U/L ALT 22 (16-63) U/L Alkaline Phosphatase 52 (46-116) U/L Troponin I (0.00-0.056) ng/mL C-Reactive Protein <0.2 (<1.0) mg/dL NT-Pro-B Natriuret Pep (0-125) pg/mL Total Protein 4.7 L (6.4-8.2) g/dl Albumin 2.0 L (3.4-5.0) g/dl Globulin 2.7 gm/dL Albumin/Globulin Ratio 0.7 L (1-2) 08/26/21 08/26/21 08/26/21 Range/Units 07:10 07:10 09:37 WBC 32.86 H (4.23-9.07) K/mm3 RBC 2.84 L (4.63-6.08) M/mm3 Hgb 7.7 L (13.7-17.5) gm/dl Hct 23.5 L (40.1-51.0) % MCV 82.7 (79.0-92.2) fl MCH 27.1 (25.7-32.2) pg MCHC 32.8 (32.2-35.5) g/dl RDW Std Deviation 41.9 (35.1-43.9) fL Plt Count 291 (163-337) K/mm3 MPV 10.2 (9.4-12.3) fl Neut % (Auto) 93.0 H (34.0-67.9) % Lymph % (Auto) 2.6 L (21.8-53.1) % [place] % (Auto) 3.7 L (5.3-12.2) % Eos % (Auto) 0 L (0.8-7.0) Baso % (Auto) 0.1 (0.1-1.2) % Neut # (Auto) 30.58 H (1.78-5.38) K/mm3 Lymph # (Auto) 0.85 L (1.32-3.57) K/mm3 [place] # (Auto) 1.20 H (0.30-0.82) K/mm3 Eos # (Auto) 0.00 L (0.04-0.54) K/mm3 Baso # (Auto) 0.02 (0.01-0.08) K/mm3 Sodium (136-145) mEq/L Potassium (3.5-5.1) mEq/L Chloride (98-107) mEq/L Carbon Dioxide (21-32) mEq/L Anion Gap (5-15) BUN (7-18) mg/dL Creatinine (0.7-1.3) mg/dL Est Cr Clr Drug Dosing mL/min Estimated GFR (MDRD) (>60) mL/min BUN/Creatinine Ratio (14-18) Glucose (70-99) mg/dL POC Glucose (70-99) mg/dL Calcium (8.5-10.1) mg/dL Total Bilirubin (0.2-1.0) mg/dL AST (15-37) U/L ALT (16-63) U/L Alkaline Phosphatase (46-116) U/L Troponin I 0.081 H* (0.00-0.056) ng/mL C-Reactive Protein (<1.0) mg/dL NT-Pro-B Natriuret Pep 3975 H (0-125) pg/mL Total Protein (6.4-8.2) g/dl Albumin (3.4-5.0) g/dl Globulin gm/dL Albumin/Globulin Ratio (1-2) Result Diagrams: 08/26/21 09:37 08/26/21 09:37 Sepsis Event Note - Evaluation Sepsis Screening Result: Severe Sepsis Risk - Focused Exam Vital Signs: Vital Signs Temp Pulse Pulse Resp BP BP BP 08/26/21 08:52 08/26/21 08:00 36.6 C 115 H 88/68 L 98/69 08/26/21 07:25 125 H 132/59 L 08/26/21 06:48 110 H 08/26/21 06:22 136 H 126/94 H 08/26/21 05:29 08/26/21 04:48 100 08/26/21 04:37 126 H 120/78 08/26/21 04:31 36.1 C 123 H 26 H 08/26/21 03:10 92 08/26/21 02:56 131 H 123/80 08/26/21 00:55 92 08/26/21 00:38 118 H 142/92 H 08/26/21 00:36 36.6 C 118 H 28 H 08/26/21 00:25 08/25/21 22:48 102 H 08/25/21 22:36 122 H 129/84 BP Pulse Ox Pulse Ox 08/26/21 08:52 100 08/26/21 08:00 100 08/26/21 07:25 08/26/21 06:48 08/26/21 06:22 08/26/21 05:29 100 08/26/21 04:48 08/26/21 04:37 08/26/21 04:31 120/78 100 08/26/21 03:10 08/26/21 02:56 08/26/21 00:55 08/26/21 00:38 08/26/21 00:36 142/92 H 98 08/26/21 00:25 100 08/25/21 22:48 08/25/21 22:36 - Problem List Review Problem List Initiated/Reviewed/Updated: Yes - My Orders Last 24 Hours: My Active Orders 08/25/21 11:00 Insulin Lispro [HumaLOG] See Protocol SUBCUT QIDACANDBED 08/25/21 20:52 Urinary Catheter Assessment [RC] Q4HR 08/25/21 21:00 Insert Lynn Catheter [Insert Urinary Catheter] [OM.PC] Q24H 08/26/21 06:11 Metoprolol Tartrate [Lopressor] 2.5 mg IVPUSH Q10M PRN 08/26/21 07:10 CBC WITH AUTO DIFF [HEME] DAILY 08/26/21 09:00 amLODIPine [Norvasc] 5 mg PO DAILY 08/26/21 09:37 CBC WITH AUTO DIFF [HEME] Stat CMP [COMPREHENSIVE METABOLIC PN,CMP] [CHEM] Stat DD [D-DIMER QUANTITATIVE] [COAG] Stat TROPONIN I [CHEM] Routine 08/26/21 10:00 Sodium Chloride 0.9% [Normal Saline] 1,000 ml IV ASDIRECTED 08/26/21 10:02 RED BLOOD CELLS LP [BBK] Routine TYPE AND SCREEN [BBK] Routine 08/26/21 10:06 Transfuse Red Blood Cells [COMM] Routine - Plan Plan:: 45-year-old obese male with hypertension presents to the emergency department with hypoxemia secondary to COVID-19 pneumonia. Oxygen saturations on arrival with EMS on 15 L nonrebreather was 81%. 1. Acute hypoxemic respiratory failure in the setting of COVID-19 pneumonia/pneumonitis. Continue baricitinib 4mg daily Completed remdesivir Solu-Medrol 80 mg every 6 hours. Lovenox 100mg bid On bipap, Keep SpO2 > 90% at all time. Continue to prone Vitamin C, zinc supplementation. CBC, CMP and CRP daily 2. Hypertension BP is soft now Continue metoprolol 100mg daily amlodipine to 5mg is on hold hydralazine prn 3. Status post bioprosthetic aortic and mitral valve. Currently receiving systemic anticoagulation in the setting of COVID-19 inflammatory response. 4. Morbid obesity BMI 45.2 Lifestyle modification f/u with pcp 5. Tachycardia Could be due to oxygen desaturation, acute anemia, ischemic cardiopathy, EKG showed - sinus tachycardia; borderline left axis deviation; abnormal R wave progression late transition; nonspecific ST abnormalities. Significant abnormalities could be missed. Troponin 0.081, repeat troponin BNP 3975 Repeat D-dimer Echo Lipitor 40mg daily. But I would not like to give him aspirin since he most likely has bleeding Continue metoprolol 100 mg daily Metoprolol IV as needed and digoxin Acute anemia Etiology unknown His Hb is trending down to 7.7 today from 13.9 on 08/21/2021 He has been on lovenox 100mg bid Fecal occult blood negative PT/INR, PTT, fibrinogen One unit of pRBC transfusion Acute CHF? BNP 3975 troponin 0.081, repeat trop Echo Lipitor 40 mg daily intake and output Metoprolol and digoxin to control HR Mag 1.9 STEPHANIA Creatinine 2.0 today. It was 1.00 yesterday It could result from COVID-19 infection Urine output good Avoid nephrotoxic meds Repeat the renal function in morning Hyperkalemia K 5.7 Lasix and Kayexalate Dextrose and insulin Repeat potassium Elevation of troponin 0.081 Could be due to STEPHANIA, tachycardia or ACS EKG no ST elevation Repeat troponin Lipitor 40 mg daily No aspirin were ordered because he is on therapeutic anticoagulation and acute anemia CODE STATUS: agreed to have both CPR and intubation when he becomes unconscious. However, he does not want to be intubated when he is conscious. DVT prophylaxis: Lovenox Prognosis: guarded. updated to . Length of stay greater then 96 hours due to slow response to treatment
[2021-08-26] MEDS ORDERED: Insulin Glargine,Hum.Rec.Anlog 100 UNIT/ML 3 ML Pen SUBCUT SCH (11:30)
[2021-08-26] MEDS ORDERED: Sodium Chloride 0.9% 250 ML IV ONE (11:34)
[2021-08-26] MEDS ORDERED: Furosemide 20 MG/2 ML VIAL IVPUSH ONE (11:36)
[2021-08-26] MEDS ORDERED: 25% Dextrose in Water 10 ML Syringe IVPUSH ONE (11:37)
[2021-08-26] MEDS ORDERED: Insulin Lispro 100 Unit/ML 3 ML KwikPen SUBCUT ONE (11:38)
[2021-08-26] MEDS ORDERED: Sodium Polystyrene Sulfonate 15 GM/60 ML Susp 60 ML Bot PO SCH (11:45)
--- NOTE | 2021-08-26 13:39 | CT ---
CT chest Technique: Multiple axial sections through the chest were obtained. Intravenous contrast was not utilized. Reconstructed coronal and sagittal images were obtained. Comparison: Prior CT chest of 08/15/21. Findings: Motion artifact is present. Thoracic aorta shows atherosclerotic calcification. No discrete mediastinal adenopathy is seen. Air is seen within the posterior mediastinum which extends around the trachea and adjacent soft tissues. Additional air is seen around the heart and anteriorly within the mediastinum. Air extends into the base of the neck. Diffuse interstitial change and groundglass appearance is seen throughout both sides of the chest. No pleural effusions are seen. Bone window settings were reviewed which show no definite acute osseous finding. Previous sternotomy is noted. Impression: 1. Diffuse air within the posterior mediastinum, around the heart and within the anterior mediastinum extending from the base of the chest superiorly to the neck. Etiology for this air is not appreciated on the exam. 2. Diffuse interstitial change and groundglass appearance within both sides of the chest. Findings are presumably due to diffuse hemorrhage or pneumonia. 3. Previous sternotomy noted. No acute osseous finding is appreciated. Diagnostic code #5 CT abdomen and pelvis Technique: Multiple axial sections were obtained from above the dome of the diaphragm inferiorly through the pubic symphysis. Intravenous and oral contrast were not given. Reconstructed coronal and sagittal images were obtained. Comparison: No prior abdominal imaging is available. Findings: Motion artifact is seen. Liver shows no discrete abnormality. Spleen size is normal. Adrenal glands show no nodules. Kidneys show no abnormal calcifications or hydronephrosis. Pancreas shows no discrete abnormality. Abdominal aorta shows no aneurysm. No retroperitoneal adenopathy or mesenteric abnormalities are seen. No pelvic mass or adenopathy is noted. Lynn catheter is noted within the bladder. Mild increased stool is seen within the rectum. No free fluid or inflammatory change is seen. Bone window settings show no acute abnormality. Impression: 1. Increased stool within the rectum. Lynn catheter seen within the bladder. 2. Motion artifact is seen. 3. No definite acute abnormality is appreciated on noncontrast CT study of the abdomen and pelvis. Diagnostic code #2
--- NOTE | 2021-08-26 14:07 | PCM.SN.2 ---
- Free Text/Narrative Note: CT chest that showed diffuse air within the posterior mediastinum, around the heart and within the anterior mediastinum extending from the base of the chest superiorly to the neck. Diffuse interstitial change and a groundglass appearance within both sides of the chest. Findings are presumably due to diffuse hemorrhage or pneumonia. CT abdomen and pelvis-no bleeding. D-dimer 0.99. It was 2.27 on 08/21 PT/INR 11.9/1.08 aPTT 26.7 Fibrinogen 173 Regarding the air in the chest, spoke to Dr. Weber who did not suggest any surgical treatment. Pt can continue to be on BIPAP. Based on the D-dimer etc results, I do not feel pt has intrapulmonary hemorrhage. I also do not think pt has hemolytic anemia. I will continue his lovenox and closely watch. One unit of pRBC
[2021-08-26] MEDS ORDERED: Succinylcholine 200 MG/10 ML MDV ONE (14:33)
[2021-08-26] MEDS ORDERED: Midazolam 1 MG/ML 5 ML SDV ONE (14:33)
[2021-08-26] MEDS ORDERED: Propofol 200 MG/20 ML SDV ONE (14:33)
[2021-08-26] MEDS ORDERED: fentaNYL 2,500 MCG in Sodium Chloride 0.9% 200 ML IV SCH (14:45)
[2021-08-26] MEDS ORDERED: Sodium Chloride 0.9% 1,000 ML ONE (15:12)
[2021-08-26] MEDS ORDERED: EPINEPHrine 1:10,000 1 MG/10 ML Syringe ONE ×9 (15:15)
[2021-08-26] MEDS ORDERED: Sodium Bicarbonate 8.4% 50 MEQ/50 ML Syringe ONE (15:15)
[2021-08-26] MEDS ORDERED: Amiodarone/Dextrose,Iso-Osmotic 150 MG/100 ML Premix Bag IV ONE (15:15)
--- NOTE | 2021-08-26 15:15 | CR ---
Chest: Supine portable view of the chest was obtained. Comparison: Prior chest CT study performed earlier on the same day (12:52 PM). Diffuse parenchymal densities are seen within both sides of the chest. Soft tissue air is seen within the neck and upper mediastinum. Heart is felt to be enlarged. Sternotomy is noted. Endotracheal tube is seen which lies slightly below the inferior level of the clavicle above the merlin. Bony structures show nothing acute. Impression: 1. Air within the upper mediastinum and neck. 2. Diffuse parenchymal densities within both sides of the chest. 3. Cardiomegaly. 4. Endotracheal tube which appears satisfactory in position as described above. Diagnostic code #3
--- NOTE | 2021-08-26 15:44 | PCM.SN.2 ---
- Free Text/Narrative Note: 1422 Called to room for emergency intubation preO2 sat at 92% patient agrees with intubation. 1433 5ml versed, 200mg propofol with 140mg succinylcholine direct visualization of cords #8.0 ETT placed with positive ETCO2, bilateral breath sounds equal, ETT secured @ 24cm at the lip. Vitals stable radiology called for X-ray assist with chest X-ray. 1440 Intubation complete. 1450 Code blue called. Assist with code until it was called. Out of room at 1530.
--- NOTE | 2021-08-26 19:04 | PCM.DCSUM1 ---
Discharge Summary - Hospital Course Free Text/Narrative:: Patient is a 45-year-old male with past medical history of morbid obesity and hypertension who was admitted to the hospital for respiratory failure and Covid 19 pneumonia. In the hospital, he was given aggressive treatment based on Covid 19 treatment protocol including remdesivir, steroids, anticoagulation, and monoclonal antibody. His condition deteriorated today. This afternoon he developed oxygen saturation SpO2 between 82-92% even though he was put on Bipap with FIO2 100%. He was intubated. About 20mins after being intubated, he developed Vtach and lost pulse. ACLS protocol was initiated. But unfortunately he eventually . Family was kept updated during the ACLS. HPI Initial Comments: as per Dr. vivar, 45-year-old unvaccinated against COVID-19 male presents after having symptoms for approximately 9 days to the emergency department. Patient had difficulty breathing coming back from the bathroom and called EMS who reported his O2 level to be significantly low. Patient was placed on a nonrebreather on 15 L and his sats were only 81% on arrival to the emergency department. Patient's risk factors include morbid obesity and hypertension. 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 He denies diabetes. Diagnosis: Stroke: No - Discharge Data Discharge Date: 08/26/21 Discharge Disposition: 20 Condition: - Referral to Home Health Primary Care Physician: Analy Storey NP - Discharge Plan *PRESCRIPTION DRUG MONITORING PROGRAM REVIEWED*: Not Applicable *COPY OF PRESCRIPTION DRUG MONITORING REPORT IN PATIENT [place]: Not Applicable Home Medications: Home Meds Losartan [Cozaar] 100 mg PO DAILY 01/26/19 [History] Simvastatin [Zocor] 40 mg PO DAILY 01/26/19 [History] Doxycycline [Doxycycline Hyclate] 100 mg PO Q12HR 08/15/21 [History] Metoprolol Succinate 50 mg PO DAILY 08/15/21 [History] calcitrioL [Calcitriol] 0.25 mcg PO DAILY 08/15/21 [History] Patient Handouts: COVID-19, 10 Things You Can Do to Manage Your COVID-19 Symptoms at Home - CDC (04/24/2021), Sepsis, Diagnosis, Adult, COVID-19: How to Protect Yourself and Others - [facility] Forms: ED Department Discharge Referrals: Analy Storey [employer] [Primary Care Provider] - - Discharge Summary/Plan Comment DC Time >30 min.: Yes Total # of Minutes for Discharge Time: 31mins - General Info Date of Service: 08/26/21 Admission Dx/Problem (Free Text: Admission Diagnosis/Problem Admission Diagnosis/Problem Hypoxia Subjective Update: pt - Patient Data Vitals - Most Recent: Last Vital Signs Temp 36.2 C 08/26/21 17:36 Pulse 135 H 08/26/21 17:36 Resp 26 H 08/26/21 17:36 BP 186/99 H 08/26/21 17:36 Pulse Ox 89 L 08/26/21 17:36 Weight - Most Recent: 134.717 kg I&O - Last 24 hours: Intake & Output 08/26/21 08/26/21 08/26/21 06:59 14:59 22:59 Intake Total 1400 360 Output Total 1150 440 Balance 250 -80 Lab Results - Last 24 hrs: Laboratory Results - last 24 hr 08/25/21 08/26/21 08/26/21 Range/Units 21:13 06:27 07:10 WBC 31.32 H (4.23-9.07) K/mm3 RBC 2.84 L (4.63-6.08) M/mm3 Hgb 7.7 L D (13.7-17.5) gm/dl Hct 23.6 L (40.1-51.0) % MCV 83.1 (79.0-92.2) fl MCH 27.1 (25.7-32.2) pg MCHC 32.6 (32.2-35.5) g/dl RDW Std Deviation 41.6 (35.1-43.9) fL Plt Count 288 (163-337) K/mm3 MPV 10.2 (9.4-12.3) fl Neut % (Auto) 92.4 H (34.0-67.9) % Lymph % (Auto) 3.3 L (21.8-53.1) % Ada % (Auto) 3.5 L (5.3-12.2) % Eos % (Auto) 0 L (0.8-7.0) Baso % (Auto) 0.1 (0.1-1.2) % Neut # (Auto) 28.95 H (1.78-5.38) K/mm3 Lymph # (Auto) 1.02 L (1.32-3.57) K/mm3 Ada # (Auto) 1.10 H (0.30-0.82) K/mm3 Eos # (Auto) 0.00 L (0.04-0.54) K/mm3 Baso # (Auto) 0.02 (0.01-0.08) K/mm3 Manual Slide Review Abnormal smear PT (9.7-12.0) SECONDS INR APTT (21.7-31.4) SECONDS Fibrinogen (187-446) mg/dL D-Dimer, Quantitative (0.19-0.50) mg/L Sodium (136-145) mEq/L Potassium (3.5-5.1) mEq/L Chloride (98-107) mEq/L Carbon Dioxide (21-32) mEq/L Anion Gap (5-15) BUN (7-18) mg/dL Creatinine (0.7-1.3) mg/dL Est Cr Clr Drug Dosing mL/min Estimated GFR (MDRD) (>60) mL/min BUN/Creatinine Ratio (14-18) Glucose (70-99) mg/dL POC Glucose 183 H 243 H (70-99) mg/dL Calcium (8.5-10.1) mg/dL Total Bilirubin (0.2-1.0) mg/dL AST (15-37) U/L ALT (16-63) U/L Alkaline Phosphatase (46-116) U/L Troponin I (0.00-0.056) ng/mL C-Reactive Protein (<1.0) mg/dL NT-Pro-B Natriuret Pep (0-125) pg/mL Total Protein (6.4-8.2) g/dl Albumin (3.4-5.0) g/dl Globulin gm/dL Albumin/Globulin Ratio (1-2) Blood Type Gel Antibody Screen Crossmatch 08/26/21 08/26/21 08/26/21 Range/Units 07:10 07:10 07:10 WBC (4.23-9.07) K/mm3 RBC (4.63-6.08) M/mm3 Hgb (13.7-17.5) gm/dl Hct (40.1-51.0) % MCV (79.0-92.2) fl MCH (25.7-32.2) pg MCHC (32.2-35.5) g/dl RDW Std Deviation (35.1-43.9) fL Plt Count (163-337) K/mm3 MPV (9.4-12.3) fl Neut % (Auto) (34.0-67.9) % Lymph % (Auto) (21.8-53.1) % Ada % (Auto) (5.3-12.2) % Eos % (Auto) (0.8-7.0) Baso % (Auto) (0.1-1.2) % Neut # (Auto) (1.78-5.38) K/mm3 Lymph # (Auto) (1.32-3.57) K/mm3 Ada # (Auto) (0.30-0.82) K/mm3 Eos # (Auto) (0.04-0.54) K/mm3 Baso # (Auto) (0.01-0.08) K/mm3 Manual Slide Review PT (9.7-12.0) SECONDS INR APTT (21.7-31.4) SECONDS Fibrinogen (187-446) mg/dL D-Dimer, Quantitative (0.19-0.50) mg/L Sodium 137 (136-145) mEq/L Potassium 5.4 H (3.5-5.1) mEq/L Chloride 105 (98-107) mEq/L Carbon Dioxide 19 L (21-32) mEq/L Anion Gap 18.4 H (5-15) BUN 84 H D (7-18) mg/dL Creatinine 1.8 H (0.7-1.3) mg/dL Est Cr Clr Drug Dosing 50.73 mL/min Estimated GFR (MDRD) 41 (>60) mL/min BUN/Creatinine Ratio 46.7 H (14-18) Glucose 277 H (70-99) mg/dL POC Glucose (70-99) mg/dL Calcium 7.6 L (8.5-10.1) mg/dL Total Bilirubin 0.3 (0.2-1.0) mg/dL AST 15 (15-37) U/L ALT 22 (16-63) U/L Alkaline Phosphatase 52 (46-116) U/L Troponin I 0.081 H* (0.00-0.056) ng/mL C-Reactive Protein <0.2 (<1.0) mg/dL NT-Pro-B Natriuret Pep 3975 H (0-125) pg/mL Total Protein 4.7 L (6.4-8.2) g/dl Albumin 2.0 L (3.4-5.0) g/dl Globulin 2.7 gm/dL Albumin/Globulin Ratio 0.7 L (1-2) Blood Type Gel Antibody Screen Crossmatch 08/26/21 08/26/21 08/26/21 Range/Units 07:10 09:37 09:37 WBC 32.86 H (4.23-9.07) K/mm3 RBC 2.84 L (4.63-6.08) M/mm3 Hgb 7.7 L (13.7-17.5) gm/dl Hct 23.5 L (40.1-51.0) % MCV 82.7 (79.0-92.2) fl MCH 27.1 (25.7-32.2) pg MCHC 32.8 (32.2-35.5) g/dl RDW Std Deviation 41.9 (35.1-43.9) fL Plt Count 291 (163-337) K/mm3 MPV 10.2 (9.4-12.3) fl Neut % (Auto) 93.0 H (34.0-67.9) % Lymph % (Auto) 2.6 L (21.8-53.1) % Ada % (Auto) 3.7 L (5.3-12.2) % Eos % (Auto) 0 L (0.8-7.0) Baso % (Auto) 0.1 (0.1-1.2) % Neut # (Auto) 30.58 H (1.78-5.38) K/mm3 Lymph # (Auto) 0.85 L (1.32-3.57) K/mm3 Ada # (Auto) 1.20 H (0.30-0.82) K/mm3 Eos # (Auto) 0.00 L (0.04-0.54) K/mm3 Baso # (Auto) 0.02 (0.01-0.08) K/mm3 Manual Slide Review Abnormal smear PT (9.7-12.0) SECONDS INR APTT (21.7-31.4) SECONDS Fibrinogen (187-446) mg/dL D-Dimer, Quantitative (0.19-0.50) mg/L Sodium 136 (136-145) mEq/L Potassium 5.7 H (3.5-5.1) mEq/L Chloride 104 (98-107) mEq/L Carbon Dioxide 21 (21-32) mEq/L Anion Gap 16.7 H (5-15) BUN 92 H (7-18) mg/dL Creatinine 2.0 H (0.7-1.3) mg/dL Est Cr Clr Drug Dosing 45.66 mL/min Estimated GFR (MDRD) 36 (>60) mL/min BUN/Creatinine Ratio 46.0 H (14-18) Glucose 278 H (70-99) mg/dL POC Glucose (70-99) mg/dL Calcium 7.6 L (8.5-10.1) mg/dL Total Bilirubin 0.3 (0.2-1.0) mg/dL AST 20 (15-37) U/L ALT 27 (16-63) U/L Alkaline Phosphatase 53 (46-116) U/L Troponin I (0.00-0.056) ng/mL C-Reactive Protein (<1.0) mg/dL NT-Pro-B Natriuret Pep (0-125) pg/mL Total Protein 4.8 L (6.4-8.2) g/dl Albumin 2.1 L (3.4-5.0) g/dl Globulin 2.7 gm/dL Albumin/Globulin Ratio 0.8 L (1-2) Blood Type O POSITIVE Gel Antibody Screen Negative Crossmatch See Detail 08/26/21 08/26/21 08/26/21 Range/Units 09:37 09:37 10:31 WBC (4.23-9.07) K/mm3 RBC (4.63-6.08) M/mm3 Hgb (13.7-17.5) gm/dl Hct (40.1-51.0) % MCV (79.0-92.2) fl MCH (25.7-32.2) pg MCHC (32.2-35.5) g/dl RDW Std Deviation (35.1-43.9) fL Plt Count (163-337) K/mm3 MPV (9.4-12.3) fl Neut % (Auto) (34.0-67.9) % Lymph % (Auto) (21.8-53.1) % Ada % (Auto) (5.3-12.2) % Eos % (Auto) (0.8-7.0) Baso % (Auto) (0.1-1.2) % Neut # (Auto) (1.78-5.38) K/mm3 Lymph # (Auto) (1.32-3.57) K/mm3 Ada # (Auto) (0.30-0.82) K/mm3 Eos # (Auto) (0.04-0.54) K/mm3 Baso # (Auto) (0.01-0.08) K/mm3 Manual Slide Review PT 11.9 (9.7-12.0) SECONDS INR 1.08 APTT 26.7 (21.7-31.4) SECONDS Fibrinogen 173 L (187-446) mg/dL D-Dimer, Quantitative 0.99 H (0.19-0.50) mg/L Sodium (136-145) mEq/L Potassium (3.5-5.1) mEq/L Chloride (98-107) mEq/L Carbon Dioxide (21-32) mEq/L Anion Gap (5-15) BUN (7-18) mg/dL Creatinine (0.7-1.3) mg/dL Est Cr Clr Drug Dosing mL/min Estimated GFR (MDRD) (>60) mL/min BUN/Creatinine Ratio (14-18) Glucose (70-99) mg/dL POC Glucose 214 H (70-99) mg/dL Calcium (8.5-10.1) mg/dL Total Bilirubin (0.2-1.0) mg/dL AST (15-37) U/L ALT (16-63) U/L Alkaline Phosphatase (46-116) U/L Troponin I (0.00-0.056) ng/mL C-Reactive Protein (<1.0) mg/dL NT-Pro-B Natriuret Pep (0-125) pg/mL Total Protein (6.4-8.2) g/dl Albumin (3.4-5.0) g/dl Globulin gm/dL Albumin/Globulin Ratio (1-2) Blood Type Gel Antibody Screen Crossmatch 08/26/21 Range/Units 15:19 WBC (4.23-9.07) K/mm3 RBC (4.63-6.08) M/mm3 Hgb (13.7-17.5) gm/dl Hct (40.1-51.0) % MCV (79.0-92.2) fl MCH (25.7-32.2) pg MCHC (32.2-35.5) g/dl RDW Std Deviation (35.1-43.9) fL Plt Count (163-337) K/mm3 MPV (9.4-12.3) fl Neut % (Auto) (34.0-67.9) % Lymph % (Auto) (21.8-53.1) % Ada % (Auto) (5.3-12.2) % Eos % (Auto) (0.8-7.0) Baso % (Auto) (0.1-1.2) % Neut # (Auto) (1.78-5.38) K/mm3 Lymph # (Auto) (1.32-3.57) K/mm3 Ada # (Auto) (0.30-0.82) K/mm3 Eos # (Auto) (0.04-0.54) K/mm3 Baso # (Auto) (0.01-0.08) K/mm3 Manual Slide Review PT (9.7-12.0) SECONDS INR APTT (21.7-31.4) SECONDS Fibrinogen (187-446) mg/dL D-Dimer, Quantitative (0.19-0.50) mg/L Sodium (136-145) mEq/L Potassium (3.5-5.1) mEq/L Chloride (98-107) mEq/L Carbon Dioxide (21-32) mEq/L Anion Gap (5-15) BUN (7-18) mg/dL Creatinine (0.7-1.3) mg/dL Est Cr Clr Drug Dosing mL/min Estimated GFR (MDRD) (>60) mL/min BUN/Creatinine Ratio (14-18) Glucose (70-99) mg/dL POC Glucose 260 H (70-99) mg/dL Calcium (8.5-10.1) mg/dL Total Bilirubin (0.2-1.0) mg/dL AST (15-37) U/L ALT (16-63) U/L Alkaline Phosphatase (46-116) U/L Troponin I (0.00-0.056) ng/mL C-Reactive Protein (<1.0) mg/dL NT-Pro-B Natriuret Pep (0-125) pg/mL Total Protein (6.4-8.2) g/dl Albumin (3.4-5.0) g/dl Globulin gm/dL Albumin/Globulin Ratio (1-2) Blood Type Gel Antibody Screen Crossmatch [facility] Results - Last 24 hrs: Microbiology 08/26/21 10:26 Stool Occult Blood ([facility]) - Final Stool / Feces Med Orders - Current: Current Medications Acetaminophen (Acetaminophen 325 Mg Tab) 650 mg PO Q4H PRN PRN Reason: Pain Last Admin: 08/26/21 00:38 Dose: 650 mg Documented by: Albuterol/Ipratropium (Albuterol/Ipratropium 3.0-0.5 Mg/3 Ml Neb Soln) 3 ml NEB Q4HRRT PRN PRN Reason: sob/wheezing Last Admin: 08/26/21 08:51 Dose: 3 ml Documented by: Atorvastatin Calcium (Atorvastatin 40 Mg Tab) 40 mg PO BEDTIME [facility] Baricitinib (Baricitinib 2 Mg Tab) 4 mg PO DAILY [facility] Stop: 08/28/21 09:01 Last Admin: 08/26/21 08:37 Dose: 4 mg Documented by: Cholecalciferol (Cholecalciferol (Vitamin D3) 5,000 Unit Cap) 10,000 unit PO DAILY [facility] Last Admin: 08/26/21 08:26 Dose: 10,000 unit Documented by: Guaifenesin (Guaifenesin 600 Mg Tab.Er) 600 mg PO TID [facility] Last Admin: 08/26/21 08:25 Dose: 600 mg Documented by: Hydralazine HCl (Hydralazine 20 Mg/Ml Sdv) 10 mg IVPUSH Q4H PRN PRN Reason: Hypertension Sodium Chloride (Normal Saline) 1,000 mls @ 150 mls/hr IV ASDIRECTED [facility] dexmedeTOMIDine in dextrose 5% (Dexmedetomidine In D5w 400 Mcg/100 Ml) 100 mls @ 6.736 mls/hr IV TITRATE [facility]; Protocol Last Admin: 08/26/21 14:43 Dose: 0.2 mcg/kg/hr, 6.736 mls/hr Documented by: Fentanyl 2,500 mcg/ Sodium (Chloride) 250 mls @ 13.472 mls/hr IV TITRATE [facility]; Protocol Last Admin: 08/26/21 14:43 Dose: 1 mcg/kg/hr, 13.472 mls/hr Documented by: Insulin Glargine (Insulin Glargine,Hum.Rec.Anlog 100 Unit/Ml 3 Ml Pen) 4 unit SUBCUT DAILY [facility] Last Admin: 08/26/21 13:21 Dose: 4 units Documented by: Insulin Human Lispro (Insulin Lispro 100 Unit/Ml 3 Ml Kwikpen) 0 unit SUBCUT QIDACANDBED [facility]; Protocol Last Admin: 08/26/21 10:35 Dose: Not Given Documented by: Methylprednisolone Sodium Succinate (Methylprednisolone Sodium Succinate 125 Mg/2 Ml Sdv) 80 mg IVPUSH Q6H [facility] Last Admin: 08/26/21 10:25 Dose: 80 mg Documented by: Metoprolol Succinate (Metoprolol Succinate 50 Mg Tab.Er) 100 mg PO DAILY [facility] Last Admin: 08/26/21 08:56 Dose: Not Given Documented by: Metoprolol Tartrate (Metoprolol Tartrate 5 Mg/5 Ml Sdv) 2.5 mg IVPUSH Q10M PRN PRN Reason: Tachycardia Last Admin: 08/26/21 07:25 Dose: 2.5 mg Documented by: Ondansetron HCl (Ondansetron 4 Mg/2 Ml Sdv) 4 mg IV Q6H PRN PRN Reason: Nausea/Vomiting Pantoprazole Sodium (Pantoprazole 40 Mg Tab.Cr) 40 mg PO BEDTIME [facility] Last Admin: 08/25/21 20:24 Dose: 40 mg Documented by: Sodium Chloride (Sodium Chloride 0.9% 10 Ml Syringe) 10 ml FLUSH ASDIRECTED PRN PRN Reason: Keep Vein Open Last Admin: 08/22/21 20:35 Dose: 10 ml Documented by: Sodium Chloride (Sodium Chloride 0.65% Nasal [place] 45 Ml Bottle) 0 ml THIAGO Q2H PRN PRN Reason: Nasal Dryness Last Admin: 08/19/21 15:09 Dose: 1 spr Documented by: Discontinued Medications Acetaminophen (Acetaminophen 325 Mg Tab) 975 mg PO NOW ONE Stop: 08/15/21 02:35 Last Admin: 08/15/21 02:42 Dose: 975 mg Documented by: Amlodipine Besylate (Amlodipine 2.5 Mg Tab) 2.5 mg PO DAILY [facility] Last Admin: 08/25/21 08:07 Dose: 2.5 mg Documented by: Amlodipine Besylate (Amlodipine 5 Mg Tab) 5 mg PO DAILY [facility] Last Admin: 08/26/21 08:57 Dose: Not Given Documented by: Amlodipine Besylate (Amlodipine 5 Mg Tab) 2.5 mg PO ONETIME ONE Stop: 08/25/21 10:16 Last Admin: 08/25/21 11:59 Dose: 2.5 mg Documented by: Baricitinib (Baricitinib 2 Mg Tab) 4 mg PO DAILY [facility] Last Admin: 08/15/21 15:13 Dose: Not Given Documented by: Baricitinib (Baricitinib 2 Mg Tab) 2 mg PO DAILY [facility] Last Admin: 08/17/21 09:08 Dose: 2 mg Documented by: Dexamethasone (Dexamethasone 10 Mg/Ml Sdv) 8 mg IVPUSH ONETIME ONE Stop: 08/15/21 02:28 Last Admin: 08/15/21 02:42 Dose: 8 mg Documented by: Dexamethasone (Dexamethasone 4 Mg Tab) 6 mg PO DAILY [facility] Stop: 08/25/21 09:01 Last Admin: 08/16/21 09:45 Dose: 6 mg Documented by: Dexamethasone (Dexamethasone 4 Mg/Ml Sdv) 6 mg IVPUSH Q12H [facility] Last Admin: 08/17/21 09:08 Dose: 6 mg Documented by: Dexamethasone (Dexamethasone 10 Mg/Ml Sdv) 6 mg IVPUSH Q12H [facility] Last Admin: 08/18/21 08:35 Dose: 6 mg Documented by: Dextrose/Water (25% Dextrose In Water 10 Ml Syringe) 10 ml IVPUSH ONETIME ONE Stop: 08/26/21 11:38 Last Admin: 08/26/21 13:21 Dose: 10 ml Documented by: Digoxin (Digoxin 500 Mcg/2 Ml Amp) 125 mcg IVPUSH ONETIME ONE Stop: 08/26/21 09:54 Last Admin: 08/26/21 10:31 Dose: 125 mcg Documented by: Enoxaparin Sodium (Enoxaparin 40 Mg/0.4 Ml Syringe) 40 mg SUBCUT DAILY [facility] Last Admin: 08/16/21 09:45 Dose: 40 mg Documented by: Enoxaparin Sodium (Enoxaparin 100 Mg/1 Ml Syringe) 100 mg SUBCUT Q12H [facility] Last Admin: 08/26/21 08:14 Dose: 100 mg Documented by: Enoxaparin Sodium (Enoxaparin 40 Mg/0.4 Ml Syringe) 100 mg SUBCUT DAILY [facility] Furosemide (Furosemide 20 Mg/2 Ml Vial) 20 mg IVPUSH ONETIME ONE Stop: 08/26/21 11:37 Last Admin: 08/26/21 12:45 Dose: 20 mg Documented by: Remdesivir 200 mg/ Sodium (Chloride) 250 mls @ 250 mls/hr IV ONETIME ONE Stop: 08/15/21 03:26 Last Admin: 08/15/21 02:45 Dose: 250 mls/hr Documented by: Sodium Chloride (Normal Saline) 100 mls @ 60 mls/min IV ASDIRECTED [facility] Last Admin: 08/15/21 03:54 Dose: 60 mls/min Documented by: Remdesivir 100 mg/ Sodium (Chloride) 100 mls @ 100 mls/hr IV Q24H [facility] Stop: 08/19/21 09:59 Last Admin: 08/19/21 09:52 Dose: 100 mls/hr Documented by: Ceftriaxone Sodium 2 gm/ (Sodium Chloride) 100 mls @ 200 mls/hr IV Q24H [facility] Stop: 08/20/21 10:59 Last Admin: 08/20/21 10:20 Dose: 200 mls/hr Documented by: Azithromycin 500 mg/ Sodium (Chloride) 250 mls @ 250 mls/hr IV Q24H [facility] Stop: 08/18/21 11:59 Last Admin: 08/18/21 11:27 Dose: 250 mls/hr Documented by: Sodium Chloride (Normal Saline) 250 mls @ 250 mls/hr IV .BOLUS ONE Stop: 08/26/21 12:33 Sodium Chloride (Normal Saline) Confirm Administered Dose 1,000 mls @ as directed .ROUTE .STK-MED ONE Stop: 08/26/21 15:13 Influenza Virus Vaccine (Pharmacy To Dose - Influenza Vaccine) 1 each IM ONETIME ONE Stop: 08/15/21 12:52 Influenza Virus Vaccine (Flu Vacc [id number] 36mos Up/Pf 60 Mcg/0.5 Ml Syringe) 60 mcg IM .ONCE ONE Stop: 08/15/21 13:01 Insulin Human Lispro (Insulin Lispro 100 Unit/Ml 3 Ml Kwikpen) 6 unit SUBCUT ONETIME ONE Stop: 08/26/21 11:39 Last Admin: 08/26/21 13:21 Dose: 6 units Documented by: Iopamidol (Iopamidol 755 Mg/Ml 100 Ml Bottle) 100 ml IVPUSH ONETIME ONE Stop: 08/15/21 03:18 Last Admin: 08/15/21 03:54 Dose: 100 ml Documented by: Losartan Potassium (Losartan 100 Mg Tab) 100 mg PO DAILY [facility] Methylprednisolone Sodium Succinate (Methylprednisolone Sodium Succinate 40 Mg/1 Ml Sdv) 80 mg IVPUSH Q6H [facility] Last Admin: 08/20/21 04:37 Dose: 80 mg Documented by: Metoprolol Succinate (Metoprolol Succinate 50 Mg Tab.Er) 50 mg PO DAILY [facility] Last Admin: 08/19/21 08:02 Dose: 50 mg Documented by: Metoprolol Succinate (Metoprolol Succinate 50 Mg Tab.Er) 50 mg PO ONETIME ONE Stop: 08/19/21 17:01 Last Admin: 08/19/21 16:56 Dose: 50 mg Documented by: Metoprolol Tartrate (Metoprolol Tartrate 5 Mg/5 Ml Sdv) 2.5 mg IVPUSH Q10M PRN PRN Reason: Tachycardia Last Admin: 08/26/21 04:37 Dose: 2.5 mg Documented by: Simvastatin (Simvastatin 40 Mg Tab) 40 mg PO DAILY [facility] Last Admin: 08/26/21 08:25 Dose: 40 mg Documented by: Sodium Chloride (Sodium Chloride 0.9% 10 Ml Sdv) 10 ml FLUSH ONETIME ONE Stop: 08/15/21 03:18 Last Admin: 08/15/21 15:23 Dose: Not Given Documented by: Sodium Polystyrene Sulfonate (Sodium Polystyrene Sulfonate 15 Gm/60 Ml Susp 60 Ml Bot) 15 gm PO Q3H [facility] Stop: 08/26/21 14:46
[2021-08-26] MEDS ORDERED: atorvaSTATin 40 MG Tab PO SCH (21:00)
[2021-08-26] MEDS ORDERED: Enoxaparin 40 MG/0.4 ML Syringe SUBCUT SCH (21:00)
== END 2021-08-26 19:19 | disposition expired | DRG 208 ==
LOC: JD.ED 02:03 → JD.MS 11:16 → JD.ICU 08-16 09:40
PROVIDERS: ADMIT Family Medicine; ATTEND Family Medicine
PROC: 8E0ZXY6 Isolation (ICD-10-PCS; principal; 2021-08-15)
PROC: XW033E5 Introduction of Remdesivir Anti-infective into Peripheral Vein, Percutaneous Approach, New Technology Group 5 (ICD-10-PCS; 2021-08-15)
PROC: 3E0333Z Introduction of Anti-inflammatory into Peripheral Vein, Percutaneous Approach (ICD-10-PCS; 2021-08-15)
PROC: XW0DXM6 Introduction of Baricitinib into Mouth and Pharynx, External Approach, New Technology Group 6 (ICD-10-PCS; 2021-08-15)
PROC: 3E0DX3Z Introduction of Anti-inflammatory into Mouth and Pharynx, External Approach (ICD-10-PCS; 2021-08-16)
PROC: 5A0935A Assistance with Respiratory Ventilation, Less than 24 Consecutive Hours, High Flow/Velocity Cannula (ICD-10-PCS; 2021-08-16)
PROC: 5A09457 Assistance with Respiratory Ventilation, 24-96 Consecutive Hours, Continuous Positive Airway Pressure (ICD-10-PCS; 2021-08-16)
PROC: 30233N1 Transfusion of Nonautologous Red Blood Cells into Peripheral Vein, Percutaneous Approach (ICD-10-PCS; 2021-08-26)
PROC: 0BH17EZ Insertion of Endotracheal Airway into Trachea, Via Natural or Artificial Opening (ICD-10-PCS; 2021-08-26)
PROC: 3E033XZ Introduction of Vasopressor into Peripheral Vein, Percutaneous Approach (ICD-10-PCS; 2021-08-26)
PROC: 5A1935Z Respiratory Ventilation, Less than 24 Consecutive Hours (ICD-10-PCS; 2021-08-26)
DX: U07.1 COVID-19 (principal); J12.82 Pneumonia due to coronavirus disease 2019; J96.01 Acute respiratory failure with hypoxia; I47.2 Ventricular tachycardia; D58.9 Hereditary hemolytic anemia, unspecified; N17.9 Acute kidney failure, unspecified; Z68.42 Body mass index [BMI] 45.0-49.9, adult; E66.01 Morbid (severe) obesity due to excess calories; H54.7 Unspecified visual loss; I25.10 Atherosclerotic heart disease of native coronary artery without angina pectoris; E78.00 Pure hypercholesterolemia, unspecified; I25.5 Ischemic cardiomyopathy; R77.8 Other specified abnormalities of plasma proteins; I10 Essential (primary) hypertension; G47.30 Sleep apnea, unspecified; M19.90 Unspecified osteoarthritis, unspecified site; M10.9 Gout, unspecified; D24.9 Benign neoplasm of unspecified breast; E87.5 Hyperkalemia; Z79.899 Other long term (current) drug therapy; Z95.2 Presence of prosthetic heart valve; Z86.73 Personal history of transient ischemic attack (TIA), and cerebral infarction without residual deficits; Z87.891 Personal history of nicotine dependence; Z95.1 Presence of aortocoronary bypass graft; Z79.01 Long term (current) use of anticoagulants; I25.2 Old myocardial infarction
CPT/HCPCS: 31500; 36415; 36430; 36600; 51702; 71045; 71045-26; 71250; 71250-26; 71275; 71275-26; 74176; 74176-26; 80048; 80053; 82272; 82306; 82728; 82803; 82947; 83615; 83735; 83880; 84100; 84145; 84484; 85025; 85379; 85384; 85610; 85730; 86140; 86850; 86900; 86901; 86922; 87040; 93005; 94002; 94640; 94660; 94667; 94668; 94762; 96374; 99140; 99223; 99232; 99233; 99238; 99285-25; A9270-GY; J0171; J0282; J0330; J0456; J0696; J1100; J1160; J1650; J1815; J1940; J2250; J2704; J2920; J2930; J3010; J3490; J7050; J7620-GY; J8540; P9016; Q9967